=== PATIENT | female | born 1975 | race Caucasian/White ===

== ENCOUNTER 2019-09-10 01:02 | Emergency (ER) | payer BC ==
[2019-09-10 01:10] VITALS: TEMP 97.9
[2019-09-10] MEDS ORDERED: HYDROmorphone 0.5 MG/0.5 ML SYRINGE IVP STA (01:19)
[2019-09-10] MEDS ORDERED: ONDANSETRON 4 MG/2 ML VIAL IVP STA (01:19)
[2019-09-10] MEDS ORDERED: SODIUM CHLORIDE 0.9% 1,000 ML IV STA (01:19)
[2019-09-10] MEDS ORDERED: MAG HYDROX/AL HYDROX/SIMETH 30 ML, HYOSCYAMINE ELIXIR 10 ML, LIDOCAINE VISCOUS 2% 10 ML PO STA ×3 (01:20)
[2019-09-10] MEDS ORDERED: FAMOTIDINE 20 MG/2 ML VIAL IV STA (01:20)
--- NOTE | 2019-09-10 01:32 | ED ---
Abdominal Pain HPI - General Chief Complaint: Abdominal Pain Stated Complaint: Abd pain Time Seen by Provider: 09/10/19 01:14 Source: patient Mode of arrival: ambulatory Limitations: no limitations - History of Present Illness Initial Comments: 44-year-old female patient with past medical history significant for peptic ulcer disease with perforation presents to the emergency department today for evaluation of mid abdominal pain. Patient states that she's had pain for the last couple of days worsening tonight. Patient states she has been nauseated b ut has not vomited. Patient states the pain feels similar to when she had an ulcer in the past. She denies any dark or tarry stools. Denies any gross blood per rectum. Denies any hematuria, dysuria, urinary frequency, urinary urgency. She has had Ivana-en-Y gastric bypass and cholecystectomy in the past. She denies fevers or chills. Denies constipation or diarrhea. Patient denies any recent rash, shortness breath, chest pain, numbness, tingling, dizziness, weakness, headache, visual changes, or any other complaints. - Related Data Home Medications Medication Instructions Recorded Confirmed Omeprazole(Dose Unknown) 1 tab PO DAILY PRN 10/12/14 10/14/14 Acetaminophen [Tylenol] 325 mg PO Q4H 09/10/19 09/10/19 DULoxetine HCL [Cymbalta] 30 mg PO DAILY 09/10/19 09/10/19 Gabapentin [Neurontin] 400 mg PO BID 09/10/19 09/10/19 Sucralfate [Carafate] 1 gm PO BID 09/10/19 09/10/19 Ziprasidone HCl [Geodon] 80 mg PO 09/10/19 hydrOXYzine HCL 15 mg PO DAILY PRN 09/10/19 09/10/19 traZODone HCL 300 mg PO BID 09/10/19 09/10/19 Previous Rx's Medication Instructions Recorded Famotidine [Pepcid] 20 mg PO HS #30 tablet 09/10/19 Allergies Allergy/AdvReac Type Severity Reaction Status Date / Time Sulfa (Sulfonamide Allergy "ellis" Verified 10/12/14 15:41 Antibiotics) sulfamethoxazole Allergy "ellis" Verified 10/12/14 15:41 [From Bactrim] trimethoprim [From Bactrim] Allergy "ellis" Verified 10/12/14 15:41 Review of Systems ROS Statement: Those systems with pertinent positive or pertinent negative responses have been documented in the HPI. ROS Other: All systems not noted in ROS Statement are negative. Past Medical History Past Medical History: Deep Vein Thrombosis (DVT), Skin Disorder Additional Past Medical History / Comment(s): low BP, migraines, heart murmer, ulcer, hx stool impactions, sores on legs, dvt rt leg, anemia History of Any Multi-Drug Resistant Organisms: None Reported Past Surgical History: Bariatric Surgery, Cholecystectomy Additional Past Surgical History / Comment(s): D&C x 2, gastric bypass 2007, surgery for mesanteric defect Past Anesthesia/Blood Transfusion Reactions: Motion Sickness, Postoperative Nausea & Vomiting (PONV) Past Psychological History: Anxiety, Depression Smoking Status: Never smoker Past Alcohol Use History: Occasional Past Drug Use History: None Reported - Past Family History Mother Family Medical History: Deep Vein Thrombosis (DVT), Pulmonary Embolus General Exam Limitations: no limitations General appearance: alert, in no apparent distress, other (This is a well- developed, well-nourished adult female patient in no acute distress. Vital s igns upon presentation are temperature 97.9F, pulse 88, respirations 20, blood pressure 140/95, pulse ox 95% on room air.) Eye exam: Present: normal appearance, PERRL, EOMI. Absent: scleral icterus, conjunctival injection, periorbital swelling ENT exam: Present: normal exam, normal oropharynx, mucous membranes moist Respiratory exam: Present: normal lung sounds bilaterally. Absent: respiratory distress, wheezes, rales, rhonchi, stridor Cardiovascular Exam: Present: regular rate, normal rhythm, normal heart sounds. Absent: systolic murmur, diastolic murmur, rubs, gallop, clicks GI/Abdominal exam: Present: soft, tenderness (midepigastric tenderness), normal bowel sounds. Absent: distended, guarding, rebound, rigid Back exam: Present: normal inspection. Absent: CVA tenderness (R), CVA tenderness (L) Neurological exam: Present: alert, oriented X3, CN II-XII intact Psychiatric exam: Present: normal affect, normal mood Skin exam: Present: warm, dry, intact, normal color. Absent: rash Course Vital Signs 09/10/19 09/10/19 01:07 03:10 Temperature 97.9 F Pulse Rate 88 90 Respiratory 20 18 Rate Blood Pressure 140/95 117/80 O2 Sat by Pulse 95 95 Oximetry Medical Decision Making - Medical Decision Making 44-year-old female patient presents the emergency department today for evaluation of mid upper abdominal pain. Physical examination did reveal some mid abdominal tenderness. Labs reviewed and are unremarkable. X-ray was unremarkable. Patient continued to have pain after initiation of medications so we did perform CT of the abdomen and pelvis which was also unremarkable other than a large left ovarian cyst. Patient's pain is upper abdomen she is denying pelvic pain, states she was aware of this cyst. She does have history of peptic ulcer disease and states symptoms feel similar. We will start Pepcid, she does have Carafate at home which she will take as well. She is instructed follow up with her primary care physician and GI specialist for further evaluation and possible endoscopy. Return parameters discussed in detail. She verbalizes understanding and agrees with this plan. - Lab Data Result diagrams: 09/10/19 01:42 09/10/19 01:42 Lab Results 09/10/19 09/10/19 09/10/19 Range/Units 01:42 01:42 01:42 WBC 8.8 (3.8-10.6) k/uL RBC 4.63 (3.80-5.40) m/uL Hgb 14.3 (11.4-16.0) gm/dL Hct 44.0 (34.0-46.0) % MCV 95.0 (80.0-100.0) fL MCH 30.8 (25.0-35.0) pg MCHC 32.4 (31.0-37.0) g/dL RDW 12.5 (11.5-15.5) % Plt Count 294 (150-450) k/uL Neutrophils % 51 % Lymphocytes % 36 % Monocytes % 6 % Eosinophils % 3 % Basophils % 1 % Neutrophils # 4.5 (1.3-7.7) k/uL Lymphocytes # 3.2 (1.0-4.8) k/uL Monocytes # 0.5 (0-1.0) k/uL Eosinophils # 0.3 (0-0.7) k/uL Basophils # 0.1 (0-0.2) k/uL Sodium 137 (137-145) mmol/L Potassium 4.2 (3.5-5.1) mmol/L Chloride 108 H (98-107) mmol/L Carbon Dioxide 22 (22-30) mmol/L Anion Gap 7 mmol/L BUN 13 (7-17) mg/dL Creatinine 1.01 (0.52-1.04) mg/dL Est GFR (CKD-EPI)AfAm 78 (>60 ml/min/1.73 sqM) Est GFR (CKD-EPI)NonAf 68 (>60 ml/min/1.73 sqM) Glucose 94 (74-99) mg/dL Plasma Lactic Acid Jae 0.9 (0.7-2.0) mmol/L Calcium 8.9 (8.4-10.2) mg/dL Total Bilirubin 0.2 (0.2-1.3) mg/dL AST 24 (14-36) U/L ALT 25 (9-52) U/L Alkaline Phosphatase 77 (38-126) U/L Total Protein 6.7 (6.3-8.2) g/dL Albumin 4.0 (3.5-5.0) g/dL Amylase 62 (30-110) U/L Lipase 145 (23-300) U/L Urine Color Urine Appearance (Clear) Urine pH (5.0-8.0) Ur Specific [place] (1.001-1.035) Urine Protein (Negative) Urine Glucose (UA) (Negative) Urine Ketones (Negative) Urine Blood (Negative) Urine Nitrite (Negative) Urine Bilirubin (Negative) Urine Urobilinogen (<2.0) mg/dL Ur Leukocyte Esterase (Negative) Urine RBC (0-5) /hpf Urine WBC (0-5) /hpf Ur Squamous Epith Cells (0-4) /hpf Urine Bacteria (None) /hpf Urine Mucus (None) /hpf 09/10/19 Range/Units 02:33 WBC (3.8-10.6) k/uL RBC (3.80-5.40) m/uL Hgb (11.4-16.0) gm/dL Hct (34.0-46.0) % MCV (80.0-100.0) fL MCH (25.0-35.0) pg MCHC (31.0-37.0) g/dL RDW (11.5-15.5) % Plt Count (150-450) k/uL Neutrophils % % Lymphocytes % % Monocytes % % Eosinophils % % Basophils % % Neutrophils # (1.3-7.7) k/uL Lymphocytes # (1.0-4.8) k/uL Monocytes # (0-1.0) k/uL Eosinophils # (0-0.7) k/uL Basophils # (0-0.2) k/uL Sodium (137-145) mmol/L Potassium (3.5-5.1) mmol/L Chloride (98-107) mmol/L Carbon Dioxide (22-30) mmol/L Anion Gap mmol/L BUN (7-17) mg/dL Creatinine (0.52-1.04) mg/dL Est GFR (CKD-EPI)AfAm (>60 ml/min/1.73 sqM) Est GFR (CKD-EPI)NonAf (>60 ml/min/1.73 sqM) Glucose (74-99) mg/dL Plasma Lactic Acid Jae (0.7-2.0) mmol/L Calcium (8.4-10.2) mg/dL Total Bilirubin (0.2-1.3) mg/dL AST (14-36) U/L ALT (9-52) U/L Alkaline Phosphatase (38-126) U/L Total Protein (6.3-8.2) g/dL Albumin (3.5-5.0) g/dL Amylase (30-110) U/L Lipase (23-300) U/L Urine Color Red Urine Appearance Cloudy H (Clear) Urine pH 5.5 (5.0-8.0) Ur Specific [place] 1.023 (1.001-1.035) Urine Protein 1+ H (Negative) Urine Glucose (UA) Negative (Negative) Urine Ketones Negative (Negative) Urine Blood Large H (Negative) Urine Nitrite Negative (Negative) Urine Bilirubin Negative (Negative) Urine Urobilinogen <2.0 (<2.0) mg/dL Ur Leukocyte Esterase Moderate H (Negative) Urine RBC >182 H (0-5) /hpf Urine WBC 55 H (0-5) /hpf Ur Squamous Epith Cells 3 (0-4) /hpf Urine Bacteria Rare H (None) /hpf Urine Mucus Rare H (None) /hpf - Radiology Data Radiology results: report reviewed, image reviewed Acute abdomen series is obtained. Report was reviewed in its entirety. Impression by Dr. Curry shows normal chest. No active cardiopulmonary disease. Previous surgery. No sign of acute abdomen. CT abdomen and pelvis was obtained. Report was reviewed in its entirety. Impression by Dr. Curry shows normal appendix. No sign of acute abdomen and pelvis. Left large ovarian cyst. Disposition Clinical Impression: Abdominal pain, History of peptic ulcer disease Disposition: HOME SELF-CARE Condition: Good Instructions (If sedation given, give patient instructions): Diet for Stomach Ulcers and Gastritis (ED), Abdominal Pain (ED) Additional Instructions: Take medication as directed. Follow-up with your primary care physician for recheck in 1-2 days. 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 Return to the emergency department immediately for any new, worsening, or concerning symptoms. Prescriptions: Famotidine [Pepcid] 20 mg PO HS #30 tablet Is patient prescribed a controlled substance at d/c from ED?: No Referrals: Kyle Monroy DO [Primary Care Provider] - 1-2 days Ivelisse Alvarado MD [STAFF PHYSICIAN] - 1-2 days Time of Disposition: 03:26
--- NOTE | 2019-09-10 02:19 | XR ---
EXAMINATION TYPE: XR abdomen acute w cxr DATE OF EXAM: 09/10/2019 COMPARISON: NONE HISTORY: Abdominal pain TECHNIQUE: Supine, upright, and left side down lateral decubitus views of the abdomen are obtained. FINDINGS: Heart and mediastinum are normal. Lungs are clear. Diaphragm is normal. Bowel gas pattern is normal. There is no sign of intestinal obstruction or pneumoperitoneum. There are clips from cholecystectomy. There is a single clip over the left kidney. I see no calcifications over the kidneys. IMPRESSION: Normal chest. No active cardiopulmonary disease. Previous surgery. No sign of acute abdomen.
[2019-09-10 02:22] LABS: Basophils # (A) 0.1 k/uL (0-0.2); Basophils % (A) 1 %; Eosinophils # (A) 0.3 k/uL (0-0.7); Eosinophils % (A) 3 %; HGB 14.3 gm/dL (11.4-16.0); Lymphocytes # (A) 3.2 k/uL (1.0-4.8); Lymphocytes % (A) 36 %; MCH 30.8 pg (25.0-35.0); MCHC 32.4 g/dL (31.0-37.0); Mean Platelet Volume 6.3; Monocytes # (A) 0.5 k/uL (0-1.0); Monocytes % (A) 6 %; Neutrophils # (A) 4.5 k/uL (1.3-7.7); Neutrophils % (A) 51 %; Platelet Count 294 k/uL (150-450); RBC 4.63 m/uL (3.80-5.40); RDW 12.5 % (11.5-15.5); WBC 8.8 k/uL (3.8-10.6)
[2019-09-10 02:26] LABS: Calcium 8.9 mg/dL (8.4-10.2); Potassium 4.2 mmol/L (3.5-5.1); Total Bilirubin 0.2 mg/dL (0.2-1.3); Total Protein 6.7 g/dL (6.3-8.2)
[2019-09-10] MEDS ORDERED: HYDROmorphone 1 MG/ML 1 ML SYRINGE IVP STA (02:36)
[2019-09-10 02:58] LABS: Appearance,Urine Cloudy (Clear); Bacteria,Urine Rare /hpf; Bilirubin,Urine Negative (Negative); Blood,Urine Large (Negative); Color,Urine Red; Glucose,Urine (UA) Negative (Negative); Ketones,Urine Negative (Negative); Leukocyte Esterase,Urine Moderate (Negative); Mucus,Urine Rare /hpf; Nitrite,Urine Negative (Negative); PH, Urine 5.5 (5.0-8.0); Protein,Urine 1+ (Negative); RBC,Urine >182 /hpf (0-5); Specific Gravity,Urine 1.023 (1.001-1.035); Squamous Epithelial Cell,Urine 3 /hpf (0-4); Urobilinogen,Urine <2.0 mg/dL (<2.0); WBC,Urine 55 /hpf (0-5)
[2019-09-10 03:11] VITALS: BP 117/80; PULSE 90; RESP 18
--- NOTE | 2019-09-10 03:15 | CT ---
EXAMINATION TYPE: CT abdomen pelvis w con DATE OF EXAM: 09/10/2019 COMPARISON: None HISTORY: abd pain hx of ulcers CT DLP: 2656 mGycm Automated exposure control for dose reduction was used. TECHNIQUE: Helical acquisition of images was performed from the lung bases through the pelvis. CONTRAST: Performed without Oral Contrast and with IV Contrast, patient injected with 100 mL of Isovue 300. FINDINGS: Lung bases are clear. There is no pleural effusion. Heart size is normal. There are clips from bariat anjel surgery on the stomach. There are clips from cholecystectomy. Liver spleen pancreas appear normal . Bile ducts are not dilated. There is no adrenal mass. There is 1 cm cortical cyst lateral left kidney. Kidneys show satisfactory contrast opacification. There is no hydronephrosis. Ureters are not dilated. Bladder distends smoothl y. There is 4 cm cyst on the left ovary. Uterus is retroverted. There is no free fluid in the pelvis. Appendix appears normal. There is no mesenteric edema. There is no ascites or free air. There is no sign of a bowel obstruction. There is small umbilical hernia that contains fat. Lumbar spine is intact. Bony pelvis is intact. IMPRESSION: NORMAL APPENDIX. NO SIGN OF ACUTE ABDOMEN AND PELVIS. LEFT LARGE OVARIAN CYST.
[2019-09-10] MEDS ORDERED: diphenhydrAMINE 50 MG/ML 1 ML VIAL IVP STA (03:23)
[2019-09-10] MEDS ORDERED: ACET/COD 300 MG/30 MG STARTER PACK 6 TAB BTL PO STA (03:41)
== END 2019-09-10 03:49 | disposition home or self-care (01) ==
LOC: EC 01:02
DX: R10.10 Upper abdominal pain, unspecified (principal); R11.0 Nausea; R10.816 Epigastric abdominal tenderness; N83.202 Unspecified ovarian cyst, left side; F41.9 Anxiety disorder, unspecified; F32.9 Major depressive disorder, single episode, unspecified; Z79.899 Other long term (current) drug therapy; Z88.1 Allergy status to other antibiotic agents; Z88.2 Allergy status to sulfonamides; Z87.11 Personal history of peptic ulcer disease; Z90.49 Acquired absence of other specified parts of digestive tract; Z98.84 Bariatric surgery status; Z86.718 Personal history of other venous thrombosis and embolism
CPT/HCPCS: 36415; 80053; 82150; 83605; 83690; 85025; 81001; 74022; 74177; 99284; 96374; 96375 ×3; 96376; 96361 ×2; J1200; J2405; J1170 ×2; Q9967

== ENCOUNTER 2019-09-22 18:22 | Emergency (ER) | payer BC ==
[2019-09-22 18:33] VITALS: BP 134/89; PULSE 98; RESP 18; TEMP 98.4
[2019-09-22] MEDS ORDERED: KETOROLAC 30 MG/ML 1 ML VIAL IVP STA (19:13)
[2019-09-22] MEDS ORDERED: ACETAMINOPHEN TAB 325 MG TAB PO STA (19:28)
--- NOTE | 2019-09-22 19:31 | ED ---
General Adult HPI - General Chief complaint: Abdominal Pain Stated complaint: Abdominal cyst Time Seen by Provider: 09/22/19 18:59 Source: patient, RN notes reviewed, old records reviewed Mode of arrival: ambulatory Limitations: no limitations - History of Present Illness Initial comments: 44-year-old female patient past medical history of bariatric surgery, cystectomy presents to ED for chief complaint of abdominal pain. Patient has been ongoing for approximately one year. Patient reports is the general discomfort in her suprapubic and left lower quadrant region. For that she was seen for the same complaint on 09/10 with a CAT scan and diagnosed a large left ovarian cyst. Patient reports that this pain for same. Denies any other acute complaints. Systemic: Pt denies fatigue, fever/chills, rash. Pt denies weakness, night sweats, weight loss. Neuro: Pt denies headache, visual disturbances, syncope or pre-syncope. HEENT: Pt denies ocular discharge or irritation, otalgia, rhinorrhea, pharyngitis or notable lymphadenopathy. Cardiopulmonary: Pt denies chest pain, SOB, heart palpitations, dyspnea on exertion. Abdominal/GI: Pt denies n/v/d. : Pt denies dysuria, burning w/ urination, frequency/urgency. Denies new onset urinary or bowel incontinence. MSK: Pt denies myalgia, loss of strength or function in extremities. Neuro: Pt denies new onset weakness, paresthesias. - Related Data Home Medications Medication Instructions Recorded Confirmed Omeprazole(Dose Unknown) 1 tab PO DAILY PRN 10/12/14 10/14/14 Acetaminophen [Tylenol] 325 mg PO Q4H 09/10/19 09/10/19 DULoxetine HCL [Cymbalta] 30 mg PO DAILY 09/10/19 09/10/19 Gabapentin [Neurontin] 400 mg PO BID 09/10/19 09/10/19 Sucralfate [Carafate] 1 gm PO BID 09/10/19 09/10/19 Ziprasidone HCl [Geodon] 80 mg PO 09/10/19 hydrOXYzine HCL 15 mg PO DAILY PRN 09/10/19 09/10/19 traZODone HCL 300 mg PO BID 09/10/19 09/10/19 Previous Rx's Medication Instructions Recorded Famotidine [Pepcid] 20 mg PO HS #30 tablet 09/10/19 Allergies Allergy/AdvReac Type Severity Reaction Status Date / Time Sulfa (Sulfonamide Allergy "ellis" Verified 09/22/19 18:33 Antibiotics) sulfamethoxazole Allergy "ellis" Verified 09/22/19 18:33 [From Bactrim] trimethoprim [From Bactrim] Allergy "ellis" Verified 09/22/19 18:33 Review of Systems ROS Statement: Those systems with pertinent positive or pertinent negative responses have been documented in the HPI. ROS Other: All systems not noted in ROS Statement are negative. Past Medical History Past Medical History: Deep Vein Thrombosis (DVT), Skin Disorder Additional Past Medical History / Comment(s): low BP, migraines, heart murmer, ulcer, hx stool impactions, sores on legs, dvt rt leg, anemia History of Any Multi-Drug Resistant Organisms: None Reported Past Surgical History: Bariatric Surgery, Cholecystectomy Additional Past Surgical History / Comment(s): D&C x 2, gastric bypass 2007, surgery for mesanteric defect Past Anesthesia/Blood Transfusion Reactions: Motion Sickness, Postoperative Nausea & Vomiting (PONV) Past Psychological History: Anxiety, Depression Smoking Status: Never smoker Past Alcohol Use History: Occasional Past Drug Use History: None Reported - Past Family History Mother Family Medical History: Deep Vein Thrombosis (DVT), Pulmonary Embolus General Exam - General Exam Comments Initial Comments: Constitutional: NAD, AOX3, Pt has pleasant affect. HEENT: NC/AT, trachea midline, neck supple, no lymphadenopathy. Posterior pharynx non erythematous, without exudates. External ears appear normal, without discharge. Mucous membranes moist. Eyes PERRLA, EOM intact. There is no scleral icterus. No pallor noted. Cardiopulmonary: RRR, no murmurs, rubs or gallops, no JVD noted. Lungs CTAB in anterior and posterior harmon. No peripheral edema. Abdominal exam: Abdomen soft and non-distended. Abdomen mildly tender to palpation in LLQ, no guarding no rigidity. Bowel sounds active in LLQ. No hepatosplenomegaly. No ecchymosis Neuro: CN II-XII grossly intact. No nuchal rigidity. No raccon eyes, no bautista sign, no hemotympanum. No cervical spinal tenderness. MSK: No posterior calf tenderness bilaterally, homans sign negative bilaterally. Posterior tibialis and radial pulse +2 bilaterally. Sensation intact in upper and lower extremities. Full active ROM in upper and lower extremities, 5/5 streg nth. Limitations: no limitations Course Vital Signs 09/22/19 18:30 Temperature 98.4 F Pulse Rate 98 Respiratory 18 Rate Blood Pressure 134/89 O2 Sat by Pulse 99 Oximetry Medical Decision Making - Medical Decision Making 44-year-old female patient presents ED for 2 plan for approximately one year of abdominal pain. Patient had a CAT scan on 09/10 displayed a 4 cm left ovarian cyst. Patient wants this reevaluated. Patient vital signs are stable, afebrile. Physical exam displayed mild left lower quadrant tenderness. Upon investigation revealed mildly elevated creatinine 1.48. UA negative. Transvaginal ultrasound displayed multiple cervical cysts, bilateral simple ovarian cyst measuring 1.5 cm. Multiple septated complex areas seen on the left ovary. Patient was discharged with primary care and OB follow-up. We'll trachea condition worsens. Case discussed with Dr. Stevens. - Lab Data Result diagrams: 09/22/19 20:08 09/22/19 20:08 Lab Results 09/22/19 09/22/19 09/22/19 Range/Units 20:08 20:08 20:08 WBC 11.6 H (3.8-10.6) k/uL RBC 4.47 (3.80-5.40) m/uL Hgb 14.2 (11.4-16.0) gm/dL Hct 41.7 (34.0-46.0) % MCV 93.4 (80.0-100.0) fL MCH 31.8 (25.0-35.0) pg MCHC 34.0 (31.0-37.0) g/dL RDW 12.5 (11.5-15.5) % Plt Count 309 (150-450) k/uL Neutrophils % 60 % Lymphocytes % 29 % Monocytes % 6 % Eosinophils % 3 % Basophils % 1 % Neutrophils # 6.9 (1.3-7.7) k/uL Lymphocytes # 3.4 (1.0-4.8) k/uL Monocytes # 0.6 (0-1.0) k/uL Eosinophils # 0.3 (0-0.7) k/uL Basophils # 0.1 (0-0.2) k/uL Sodium 137 (137-145) mmol/L Potassium 4.8 (3.5-5.1) mmol/L Chloride 106 (98-107) mmol/L Carbon Dioxide 25 (22-30) mmol/L Anion Gap 6 mmol/L BUN 13 (7-17) mg/dL Creatinine 1.48 H (0.52-1.04) mg/dL Est GFR (CKD-EPI)AfAm 49 (>60 ml/min/1.73 sqM) Est GFR (CKD-EPI)NonAf 43 (>60 ml/min/1.73 sqM) Glucose 93 (74-99) mg/dL Calcium 9.0 (8.4-10.2) mg/dL Total Bilirubin 0.3 (0.2-1.3) mg/dL AST 28 (14-36) U/L ALT 34 (9-52) U/L Alkaline Phosphatase 79 (38-126) U/L Total Protein 6.9 (6.3-8.2) g/dL Albumin 4.1 (3.5-5.0) g/dL Urine Color Urine Appearance (Clear) Urine pH (5.0-8.0) Ur Specific [place] (1.001-1.035) Urine Protein (Negative) Urine Glucose (UA) (Negative) Urine Ketones (Negative) Urine Blood (Negative) Urine Nitrite (Negative) Urine Bilirubin (Negative) Urine Urobilinogen (<2.0) mg/dL Ur Leukocyte Esterase (Negative) Urine WBC (0-5) /hpf Ur Squamous Epith Cells (0-4) /hpf Amorphous Sediment (None) /hpf Urine Bacteria (None) /hpf Urine Mucus (None) /hpf Urine HCG, Qual Not Detected (Not Detectd) 09/22/19 Range/Units 20:08 WBC (3.8-10.6) k/uL RBC (3.80-5.40) m/uL Hgb (11.4-16.0) gm/dL Hct (34.0-46.0) % MCV (80.0-100.0) fL MCH (25.0-35.0) pg MCHC (31.0-37.0) g/dL RDW (11.5-15.5) % Plt Count (150-450) k/uL Neutrophils % % Lymphocytes % % Monocytes % % Eosinophils % % Basophils % % Neutrophils # (1.3-7.7) k/uL Lymphocytes # (1.0-4.8) k/uL Monocytes # (0-1.0) k/uL Eosinophils # (0-0.7) k/uL Basophils # (0-0.2) k/uL Sodium (137-145) mmol/L Potassium (3.5-5.1) mmol/L Chloride (98-107) mmol/L Carbon Dioxide (22-30) mmol/L Anion Gap mmol/L BUN (7-17) mg/dL Creatinine (0.52-1.04) mg/dL Est GFR (CKD-EPI)AfAm (>60 ml/min/1.73 sqM) Est GFR (CKD-EPI)NonAf (>60 ml/min/1.73 sqM) Glucose (74-99) mg/dL Calcium (8.4-10.2) mg/dL Total Bilirubin (0.2-1.3) mg/dL AST (14-36) U/L ALT (9-52) U/L Alkaline Phosphatase (38-126) U/L Total Protein (6.3-8.2) g/dL Albumin (3.5-5.0) g/dL Urine Color Yellow Urine Appearance Cloudy H (Clear) Urine pH 7.0 (5.0-8.0) Ur Specific [place] 1.027 (1.001-1.035) Urine Protein Trace H (Negative) Urine Glucose (UA) Negative (Negative) Urine Ketones Negative (Negative) Urine Blood Negative (Negative) Urine Nitrite Negative (Negative) Urine Bilirubin Negative (Negative) Urine Urobilinogen 2.0 (<2.0) mg/dL Ur Leukocyte Esterase Trace H (Negative) Urine WBC 4 (0-5) /hpf Ur Squamous Epith Cells 22 H (0-4) /hpf Amorphous Sediment Few H (None) /hpf Urine Bacteria Moderate H (None) /hpf Urine Mucus Occasional H (None) /hpf Urine HCG, Qual (Not Detectd) Disposition Clinical Impression: Ovarian cyst Disposition: HOME SELF-CARE Condition: Stable Instructions (If sedation given, give patient instructions): Ovarian Cyst (ED) Additional Instructions: Follow-up with primary care provider for repeat check of kidney function tomorrow. Drink lots of fluids. Follow up with [facility] as scheduled for symptoma tic ovarian cysts. Return to ER if condition worsens. Is patient prescribed a controlled substance at d/c from ED?: No Referrals: Kyle Monroy DO [Primary Care Provider] - 1-2 days
[2019-09-22 20:19] LABS: Basophils # (A) 0.1 k/uL (0-0.2); Basophils % (A) 1 %; Eosinophils # (A) 0.3 k/uL (0-0.7); Eosinophils % (A) 3 %; HCT 41.7 % (34.0-46.0); HGB 14.2 gm/dL (11.4-16.0); Lymphocytes # (A) 3.4 k/uL (1.0-4.8); Lymphocytes % (A) 29 %; MCH 31.8 pg (25.0-35.0); MCV 93.4 fL (80.0-100.0); Mean Platelet Volume 5.6; Monocytes # (A) 0.6 k/uL (0-1.0); Monocytes % (A) 6 %; Neutrophils # (A) 6.9 k/uL (1.3-7.7); Neutrophils % (A) 60 %; Platelet Count 309 k/uL (150-450); RBC 4.47 m/uL (3.80-5.40); RDW 12.5 % (11.5-15.5); WBC 11.6 k/uL (3.8-10.6)
[2019-09-22 20:29] LABS: Albumin 4.1 g/dL (3.5-5.0); Potassium 4.8 mmol/L (3.5-5.1); Total Bilirubin 0.3 mg/dL (0.2-1.3); Total Protein 6.9 g/dL (6.3-8.2)
[2019-09-22 20:37] LABS: Amorphous Sediment,Urine Few /hpf; Appearance,Urine Cloudy (Clear); Bacteria,Urine Moderate /hpf; Bilirubin,Urine Negative (Negative); Blood,Urine Negative (Negative); Color,Urine Yellow; Glucose,Urine (UA) Negative (Negative); Ketones,Urine Negative (Negative); Leukocyte Esterase,Urine Trace (Negative); Mucus,Urine Occasional /hpf; Nitrite,Urine Negative (Negative); Protein,Urine Trace (Negative); Specific Gravity,Urine 1.027 (1.001-1.035); Squamous Epithelial Cell,Urine 22 /hpf (0-4)
--- NOTE | 2019-09-22 20:47 | US ---
EXAMINATION TYPE: US transvaginal DATE OF EXAM: 09/22/2019 COMPARISON: CT CLINICAL HISTORY: pain, 4cm ovarian cyst. Pain x couple weeks. Hx ovarian cyst. D and C. . TECHNIQUE: Transvaginal (TV). Date of LMP: 09/09/2019 EXAM MEASUREMENTS: Uterus: 6.8 x 4.7 x 3.8 cm Endometrial Stripe: 0.96 cm Right Ovary: 3.1 x 2.0 x 1.8 cm Left Ovary: 3.2 x 1.9 x 2.0 cm 1. Uterus: Retroverted Appears slightly heterogeneous. Anechoic areas seen in cervix. Largest measur es: 2.1 x 2.1 x 1.3 cm. 2. Endometrium: Measures 0.96 cm. 3. Right Ovary: Anechoic areas seen. Largest measures: 1.1 x 1.0 x 0.9 cm. 4. Left Ovary: Multiple septated complex areas seen. Largest measures: 1.7 x 1.2 x 1.1 cm. Spectral, color and waveform doppler imaging shows arterial and venous flow within the ovaries. 5. Bilateral Adnexa: appear wnl 6. Posterior cul-de-sac: appears wnl IMPRESSION: There are multiple cervical cysts. Endometrium appears normal. Bilateral simple ovarian c ysts measure up to 1.5 cm. No evidence of ovarian torsion.
== END 2019-09-22 21:26 | disposition home or self-care (01) ==
LOC: EC 18:22
DX: N83.202 Unspecified ovarian cyst, left side (principal); N83.201 Unspecified ovarian cyst, right side; R79.89 Other specified abnormal findings of blood chemistry; N88.8 Other specified noninflammatory disorders of cervix uteri; F32.9 Major depressive disorder, single episode, unspecified; F41.9 Anxiety disorder, unspecified; Z88.2 Allergy status to sulfonamides; Z79.891 Long term (current) use of opiate analgesic; Z79.899 Other long term (current) drug therapy; Z98.84 Bariatric surgery status; Z90.79 Acquired absence of other genital organ(s)
CPT/HCPCS: 36415; 76830; 80053; 81001; 81025; 85025; 93975; 99284

== ENCOUNTER → 2020-12-11 | Outpatient (CLI) | payer MEDICARE, OTHER ==
--- NOTE | 2020-12-12 05:11 | MR ---
EXAMINATION TYPE: MR shoulder LT wo con DATE OF EXAM: 12/11/2020 COMPARISON: None HISTORY: Lt shoulder pain when arm is raised over the head x 3 months Multiplanar multiecho imaging of the left shoulder was performed without contrast. FINDINGS: There is extensive increased signal in the greater tuberosity of the humerus consistent with nondispl aced chip fracture. This measures approximately 2 x 1.5 cm. There is some mild thickening and increas ed signal in the supraspinatus tendon without retraction. There is full-thickness defect in the supra spinatus tendon on the anterior aspect. There is no retraction. There is moderate spurring at the AC joint with subacromial impingement on the supraspinatus tendon. This is best seen on (proton density coronal image 10. The glenoid damir appear intact. There is narrowing of the shoulder joint space. IMPRESSION: Large nondisplaced chip fracture of the greater tuberosity of the humerus. Moderate bone edema. Full-thickness tear of the supraspinatus tendon. Moderate spurring at the AC joint with subacromial i mpingement.
== END | disposition home or self-care (01) ==
LOC: RADMRIMAIN 15:29
PROVIDERS: ATTEND Orthopaedic Surgery Sports Medicine
DX: S42.255A Nondisplaced fracture of greater tuberosity of left humerus, initial encounter for closed fracture (principal); M75.122 Complete rotator cuff tear or rupture of left shoulder, not specified as traumatic; M25.712 Osteophyte, left shoulder; M25.812 Other specified joint disorders, left shoulder

== ENCOUNTER 2021-10-09 11:26 | Emergency (ER) | payer MEDICARE, OTHER ==
[2021-10-09 14:19] VITALS: BP 130/75; PULSE 105; RESP 20; TEMP 98.3
--- NOTE | 2021-10-09 19:28 | ED ---
General Adult HPI - General Chief complaint: Upper Respiratory Infection Stated complaint: Covid+, chest pain/SOB Time Seen by Provider: 10/09/21 19:03 Source: patient Mode of arrival: ambulatory Limitations: no limitations - History of Present Illness Initial comments: 46 year-old female patient with past medical history significant for CVA 4 presents to the emergency department today with multiple complaints. States she was diagnosed with COVID-19 3 weeks ago. States that she has continued cough, shortness of breath, and coughed up a few "quarter-sized blood clots" today. States she does have shortness of breath. She is also reporting left sided arm numbness and weakness, left leg numbness and weakness that started around 2:00 in the morning. She denies any difficulty with her speech. States she does have these episodes intermittently since having her strokes. She denies any recent falls. She has had headache for the past four days. She does take Plavix. Reports chronic blurred vision. - Related Data Home Medications Medication Instructions Recorded Confirmed DULoxetine HCL [Cymbalta] 30 mg PO BID 09/10/19 10/09/21 Sucralfate [Carafate] 1 gm PO BID 09/10/19 10/09/21 Acetaminophen Tab [Tylenol Tab] 1,000 mg PO Q6HR PRN 10/09/21 10/09/21 Albuterol Inhaler [Ventolin Hfa 2 puff INHALATION RT-Q4H PRN 10/09/21 10/09/21 Inhaler] Aspirin EC [Ecotrin Low Dose] 81 mg PO DAILY 10/09/21 10/09/21 Atorvastatin [Lipitor] 40 mg PO DAILY 10/09/21 10/09/21 Clopidogrel Bisulfate [Plavix] 75 mg PO DAILY 10/09/21 10/09/21 Fluticasone Nasal [place] [Flonase 1 spray EA NOSTRIL DAILY 10/09/21 10/09/21 Nasal [place]] Metoprolol Succinate (ER) [Toprol 25 mg PO DAILY 10/09/21 10/09/21 Xl] Multivitamins, Thera [Multivitamin 1 tab PO DAILY 10/09/21 10/09/21 (formulary)] QUEtiapine [SEROquel] 100 mg PO HS 10/09/21 10/09/21 Zinc 50 mg PO DAILY 10/09/21 10/09/21 busPIRone HCl [Buspar] 10 mg PO BID 10/09/21 10/09/21 hydrOXYzine HCL [Atarax] 25 mg PO DAILY PRN 10/09/21 10/09/21 traZODone HCL 150 mg PO HS 10/09/21 10/09/21 Allergies Allergy/AdvReac Type Severity Reaction Status Date / Time Sulfa (Sulfonamide Allergy "ellis" Verified 10/09/21 21:03 Antibiotics) sulfamethoxazole Allergy "ellis" Verified 10/09/21 21:03 [From Bactrim] trimethoprim [From Bactrim] Allergy "ellis" Verified 10/09/21 21:03 Review of Systems ROS Statement: Those systems with pertinent positive or pertinent negative responses have been documented in the HPI. ROS Other: All systems not noted in ROS Statement are negative. Past Medical History Past Medical History: CVA/TIA, Deep Vein Thrombosis (DVT), Skin Disorder Additional Past Medical History / Comment(s): low BP, migraines, heart murmer, ulcer, hx stool impactions, sores on legs, dvt rt leg, anemia History of Any Multi-Drug Resistant Organisms: None Reported Past Surgical History: Bariatric Surgery, Cholecystectomy Additional Past Surgical History / Comment(s): D&C x 2, gastric bypass 2007, surgery for mesanteric defect Past Anesthesia/Blood Transfusion Reactions: Motion Sickness, Postoperative Nausea & Vomiting (PONV) Past Psychological History: Anxiety, Depression Smoking Status: Never smoker Past Alcohol Use History: Occasional Past Drug Use History: Marijuana - Past Family History Mother Family Medical History: Deep Vein Thrombosis (DVT), Pulmonary Embolus General Exam Limitations: no limitations General appearance: alert, in no apparent distress, other (This is a well- developed, well-nourished adult female in no acute distress.) Eye exam: Present: normal appearance, PERRL, EOMI. Absent: scleral icterus, conjunctival injection, nystagmus, periorbital swelling ENT exam: Present: normal exam, normal oropharynx, mucous membranes moist Respiratory exam: Present: normal lung sounds bilaterally. Absent: respiratory distress, wheezes, rales, rhonchi, stridor Cardiovascular Exam: Present: normal rhythm, tachycardia, normal heart sounds. Absent: systolic murmur, diastolic murmur, rubs, gallop, clicks GI/Abdominal exam: Present: soft, normal bowel sounds. Absent: distended, tenderness, guarding, rebound, rigid Neurological exam: Present: alert, oriented X3, CN II-XII intact Expanded Speech: Present: fluid speech Cranial nerves: EOM's Intact: Normal, Nystagmus: Normal Upper motor neuron: Pronator Drift: Normal Motor strength exam: RUE: 5, LUE: 5, RLE: 4, LLE: 4 Psychiatric exam: Present: normal affect, normal mood Skin exam: Present: warm, dry, intact, normal color. Absent: rash Course Vital Signs 10/09/21 10/09/21 14:15 20:18 Temperature 98.3 F Pulse Rate 105 H Respiratory 20 20 Rate Blood Pressure 130/75 O2 Sat by Pulse 95 Oximetry EKG Findings - EKG Comments: EKG Findings:: EKG obtained at 1423 shows normal sinus rhythm with a ventricular rate of 95, NC interval 154, QRS duration 76, QT 362, QTc 454. No evidence of ST elevation or pressure. Medical Decision Making - Medical Decision Making 46 old female patient presented to the emergency department today for evaluation of continuous cough and shortness of breath since having COVID-19. She also reported hemoptysis. She has not had any coughing with hemoptysis while here. She is able to speak full sentences and is in no respiratory distress. She is reporting left-sided extremity numbness. Physical examination was unremarkable she had no focal deficits. Initially she had reported that this was new since 2:00 in the morning. When I was giving her follow up instructions to see her neurologist for the symptoms, she stated that she has been having the numbness since she had her CVA and he is aware, she apologized for "misleading" us. Chest x-ray was negative. Labs are unremarkable. D-dimer is negative. CT brai n shows right parietal infarct consistent with her previous history of CVA. She'll be discharged follow-up with her primary care physician, she does have an appointment on Friday. Return parameters were discussed in detail. She verbalizes understanding and agrees with this plan - Lab Data Result diagrams: 10/09/21 19:28 10/09/21 19:28 Lab Results 10/09/21 10/09/21 10/09/21 Range/Units 19:28 19:28 19:28 WBC 10.0 (3.8-10.6) k/uL RBC 5.14 (3.80-5.40) m/uL Hgb 14.8 (11.4-16.0) gm/dL Hct 45.4 (34.0-46.0) % MCV 88.2 (80.0-100.0) fL MCH 28.8 (25.0-35.0) pg MCHC 32.7 (31.0-37.0) g/dL RDW 15.1 (11.5-15.5) % Plt Count 463 H (150-450) k/uL MPV 6.8 Neutrophils % 61 % Lymphocytes % 28 % Monocytes % 6 % Eosinophils % 2 % Basophils % 0 % Neutrophils # 6.1 (1.3-7.7) k/uL Lymphocytes # 2.8 (1.0-4.8) k/uL Monocytes # 0.6 (0-1.0) k/uL Eosinophils # 0.2 (0-0.7) k/uL Basophils # 0.0 (0-0.2) k/uL PT 9.9 (9.0-12.0) sec INR 0.9 (<1.2) APTT 19.0 L (22.0-30.0) sec D-Dimer 0.39 (<0.60) mg/L FEU Sodium 134 L (137-145) mmol/L Potassium 4.7 (3.5-5.1) mmol/L Chloride 103 (98-107) mmol/L Carbon Dioxide 21 L (22-30) mmol/L Anion Gap 10 mmol/L BUN 12 (7-17) mg/dL Creatinine 0.94 (0.52-1.04) mg/dL Est GFR (CKD-EPI)AfAm 84 (>60 ml/min/1.73 sqM) Est GFR (CKD-EPI)NonAf 73 (>60 ml/min/1.73 sqM) Glucose 104 H (74-99) mg/dL Calcium 9.3 (8.4-10.2) mg/dL Total Bilirubin 0.4 (0.2-1.3) mg/dL AST 44 H (14-36) U/L ALT 28 (4-34) U/L Alkaline Phosphatase 144 H (38-126) U/L Lactate Dehydrogenase 656 H (313-618) U/L Troponin I (0.000-0.034) ng/mL C-Reactive Protein 0.7 (<1.0) mg/dL Total Protein 7.5 (6.3-8.2) g/dL Albumin 4.2 (3.5-5.0) g/dL 10/09/21 Range/Units 19:28 WBC (3.8-10.6) k/uL RBC (3.80-5.40) m/uL Hgb (11.4-16.0) gm/dL Hct (34.0-46.0) % MCV (80.0-100.0) fL MCH (25.0-35.0) pg MCHC (31.0-37.0) g/dL RDW (11.5-15.5) % Plt Count (150-450) k/uL MPV Neutrophils % % Lymphocytes % % Monocytes % % Eosinophils % % Basophils % % Neutrophils # (1.3-7.7) k/uL Lymphocytes # (1.0-4.8) k/uL Monocytes # (0-1.0) k/uL Eosinophils # (0-0.7) k/uL Basophils # (0-0.2) k/uL PT (9.0-12.0) sec INR (<1.2) APTT (22.0-30.0) sec D-Dimer (<0.60) mg/L FEU Sodium (137-145) mmol/L Potassium (3.5-5.1) mmol/L Chloride (98-107) mmol/L Carbon Dioxide (22-30) mmol/L Anion Gap mmol/L BUN (7-17) mg/dL Creatinine (0.52-1.04) mg/dL Est GFR (CKD-EPI)AfAm (>60 ml/min/1.73 sqM) Est GFR (CKD-EPI)NonAf (>60 ml/min/1.73 sqM) Glucose (74-99) mg/dL Calcium (8.4-10.2) mg/dL Total Bilirubin (0.2-1.3) mg/dL AST (14-36) U/L ALT (4-34) U/L Alkaline Phosphatase (38-126) U/L Lactate Dehydrogenase (313-618) U/L Troponin I <0.012 (0.000-0.034) ng/mL C-Reactive Protein (<1.0) mg/dL Total Protein (6.3-8.2) g/dL Albumin (3.5-5.0) g/dL - Radiology Data Radiology results: report reviewed, image reviewed Two-view x-ray of the chest is obtained. Report is reviewed in its entirety. Impression by Dr. Zheng shows no acute cardiopulmonary process. CT brain is performed without contrast. Report is reviewed in its entirety. Impression by Dr. Zheng shows age-indeterminate infarct of the right parietal lobe. Disposition Clinical Impression: Cough, Paresthesia Disposition: HOME SELF-CARE Condition: Good Instructions (If sedation given, give patient instructions): Coronavirus Disease 2019 (COVID-19), Paresthesia (ED), Acute Cough (ED) Additional Instructions: Follow up with your primary care physician for recheck tomorrow. Return for any new, worsening, or concerning symptoms. Is patient prescribed a controlled substance at d/c from ED?: No Referrals: Kyle Monroy DO [Primary Care Provider] - 1-2 days Time of Disposition: 21:47
[2021-10-09 19:46] LABS: Basophils % (A) 0 %; Eosinophils # (A) 0.2 k/uL (0-0.7); Eosinophils % (A) 2 %; HCT 45.4 % (34.0-46.0); HGB 14.8 gm/dL (11.4-16.0); Lymphocytes # (A) 2.8 k/uL (1.0-4.8); Lymphocytes % (A) 28 %; MCH 28.8 pg (25.0-35.0); MCHC 32.7 g/dL (31.0-37.0); MCV 88.2 fL (80.0-100.0); Mean Platelet Volume 6.8; Monocytes # (A) 0.6 k/uL (0-1.0); Monocytes % (A) 6 %; Neutrophils # (A) 6.1 k/uL (1.3-7.7); Neutrophils % (A) 61 %; Platelet Count 463 k/uL (150-450); RBC 5.14 m/uL (3.80-5.40); RDW 15.1 % (11.5-15.5)
[2021-10-09 19:57] LABS: Albumin 4.2 g/dL (3.5-5.0); C Reactive Protein 0.7 mg/dL (<1.0); Calcium 9.3 mg/dL (8.4-10.2); Potassium 4.7 mmol/L (3.5-5.1); Total Bilirubin 0.4 mg/dL (0.2-1.3); Total Protein 7.5 g/dL (6.3-8.2)
[2021-10-09 20:10] LABS: INR 0.9 (<1.2)
[2021-10-09 20:11] LABS: Prothrombin Time 9.9 sec (9.0-12.0)
--- NOTE | 2021-10-09 21:12 | CT ---
EXAMINATION TYPE: CT brain wo con DATE OF EXAM: 10/09/2021 COMPARISON: None HISTORY: Neuro deficit. History of stroke. CT DLP: 1099.4 mGycm. Automated Exposure Control for Dose Reduction was Utilized. TECHNIQUE: CT scan of the head is performed without contrast. FINDINGS: There is a wedge-shaped hypodensity of the right parietal lobe. There is no acute intracr anial hemorrhage, mass effect, or midline shift identified. The ventricles and sulci are within norm al limits in size. The globes are intact and the visualized sinuses are clear. IMPRESSION: Age-indeterminate infarct of the right parietal lobe.
--- NOTE | 2021-10-09 21:15 | XR ---
EXAMINATION TYPE: XR chest 2V DATE OF EXAM: 10/09/2021 COMPARISON: NONE HISTORY: Altered mental status TECHNIQUE: Frontal and lateral views of the chest are obtained. FINDINGS: ASD closure device. Cardiomediastinal silhouette and pulmonary vasculature are within shamir l limits. There is eventration of the right hemidiaphragm. There is no consolidation, effusion or pne umothorax. IMPRESSION: No acute cardiopulmonary process.
[2021-10-09] MEDS ORDERED: ACET/COD 300 MG/30 MG STARTER PACK 6 TAB BTL PO STA (21:46)
== END 2021-10-09 22:04 | disposition home or self-care (01) ==
LOC: EC 11:26
DX: R05.9 Cough, unspecified (principal); R20.2 Paresthesia of skin; F41.9 Anxiety disorder, unspecified; F32.A Depression, unspecified; Z72.89 Other problems related to lifestyle; F12.90 Cannabis use, unspecified, uncomplicated; Z86.73 Personal history of transient ischemic attack (TIA), and cerebral infarction without residual deficits; Z86.718 Personal history of other venous thrombosis and embolism
CPT/HCPCS: 36415; 70450; 71046; 80053; 83615; 84484; 85025; 85379; 85610; 85730; 86140; 93005; 99285

== ENCOUNTER 2022-01-16 14:26 | Inpatient (IN) | payer MEDICARE, OTHER ==
[2022-01-16 14:31] VITALS: TEMP 98.2
[2022-01-16 14:54] VITALS: RESP 18
[2022-01-16] MEDS ORDERED: SODIUM CHLORIDE 0.9% 500 ML 500 ML IV STA (15:02)
--- NOTE | 2022-01-16 15:15 | ED ---
General Adult HPI - General Chief complaint: Neuro Symptoms/Deficit Stated complaint: Poss Stroke Time Seen by Provider: 01/16/22 14:30 Source: patient, RN notes reviewed, old records reviewed Mode of arrival: wheelchair - History of Present Illness Initial comments: This is a 46-year-old female presents emergency Department stating that it 2:00 morning she was fine she fell asleep and woke up at 3 AM and she had stuttering speech numbness or weakness of the left arm and leg. Patient states she's had 4 strokes before and she said facial droop as residual deficit from a previous stroke. Patient denies headache patient denies any chest pain palpitations difficulty breathing shortness of breath. Patient denies any abdominal pain patient nausea vomiting diarrhea. Patient denies any recent fever chills or cough. Patient states she had COVID last year. - Related Data Home Medications Medication Instructions Recorded Confirmed DULoxetine HCL [Cymbalta] 30 mg PO BID@0700,2200 09/10/19 01/16/22 Sucralfate [Carafate] 1 gm PO HS@219909/10/19 01/16/22 Acetaminophen Tab [Tylenol Tab] 1,000 mg PO Q6HR PRN 10/09/21 01/16/22 Albuterol Inhaler [Ventolin Hfa 2 puff INHALATION RT-Q4H PRN 10/09/21 01/16/22 Inhaler] Aspirin EC [Ecotrin Low Dose] 81 mg PO DAILY@0700 10/09/21 01/16/22 Atorvastatin [Lipitor] 40 mg PO DAILY@0700 10/09/21 01/16/22 Clopidogrel Bisulfate [Plavix] 75 mg PO DAILY@0700 10/09/21 01/16/22 Metoprolol Succinate (ER) [Toprol 25 mg PO DAILY@0700 10/09/21 01/16/22 Xl] Multivitamins, Thera [Multivitamin 1 tab PO HS@0 10/09/21 01/16/22 (formulary)] QUEtiapine [SEROquel] 100 mg PO HS@2200 10/09/21 01/16/22 busPIRone HCl [Buspar] 10 mg PO TID@0700,1600,2200 10/09/21 01/16/22 hydrOXYzine HCL [Atarax] 25 mg PO HS@2200 10/09/21 01/16/22 traZODone HCL 75 mg PO BID@0700,1600 10/09/21 01/16/22 L.acidoph,Paracasei, B.lactis 1 cap PO HS@2200 01/16/22 01/16/22 [Probiotic] Meclizine [Antivert] 12.5 mg PO BID PRN 01/16/22 01/16/22 Turmeric Root Extract [Turmeric] 500 mg PO HS@2200 01/16/22 01/16/22 Allergies Allergy/AdvReac Type Severity Reaction Status Date / Time gabapentin Allergy Unknown Verified 01/16/22 14:30 Sulfa (Sulfonamide Allergy "ellis" Verified 01/16/22 14:30 Antibiotics) sulfamethoxazole Allergy "ellis" Verified 01/16/22 14:30 [From Bactrim] trimethoprim [From Bactrim] Allergy "ellis" Verified 01/16/22 14:30 Review of Systems ROS Statement: Those systems with pertinent positive or pertinent negative responses have been documented in the HPI. ROS Other: All systems not noted in ROS Statement are negative. Past Medical History Past Medical History: CVA/TIA, Deep Vein Thrombosis (DVT), Skin Disorder Additional Past Medical History / Comment(s): low BP, migraines, heart murmer, ulcer, hx stool impactions, sores on legs, dvt rt leg, anemia History of Any Multi-Drug Resistant Organisms: None Reported Past Surgical History: Bariatric Surgery, Cholecystectomy Additional Past Surgical History / Comment(s): D&C x 2, gastric bypass 2007, surgery for mesanteric defect Past Anesthesia/Blood Transfusion Reactions: Motion Sickness, Postoperative Nausea & Vomiting (PONV) Past Psychological History: Anxiety, Depression Smoking Status: Never smoker Past Alcohol Use History: Occasional Past Drug Use History: Marijuana - Past Family History Mother Family Medical History: Deep Vein Thrombosis (DVT), Pulmonary Embolus General Exam - General Exam Comments Initial Comments: GENERAL: Patient is well-developed and well-nourished. Patient is nontoxic and well- hydrated and is in mild distress. ENT: Neck is soft and supple. No significant lymphadenopathy is noted. Oropharynx is clear. Moist mucous membranes. Neck has full range of motion without eliciting any pain. EYES: The sclera were anicteric and conjunctiva were pink and moist. Extraocular movements were intact and pupils were equal round and reactive to light. Eyelids were unremarkable. PULMONARY: Unlabored respirations. Good breath sounds bilaterally. No audible rales rhonchi or wheezing was noted. CARDIOVASCULAR: There is a regular rate and rhythm without any murmurs gallops or rubs. ABDOMEN: Soft and nontender with normal bowel sounds. SKIN: Skin is clear with no lesions or rashes and otherwise unremarkable. NEUROLOGIC: Patient is alert and oriented x3. Patient has stuttering speech though it appears to come and go and she is able to speak clearly at times when she wants to tell us something and other times when you ask her questions she stutters. Patient's facial droop a little slight on the left. She states this is residual from her previous stroke. Patient has decreased sensation in her left arm and left leg and has weakness in her left leg with dorsiflexion and plantar flexion. Again that weakness appears to come and go with distraction MUSCULOSKELETAL: Normal extremities with adequate strength and full range of motion. No lower extremity swelling or edema. No calf tenderness. LYMPHATICS: No significant lymphadenopathy is noted PSYCHIATRIC: Normal psychiatric evaluation. Course Vital Signs 01/16/22 01/16/22 01/16/22 14:27 14:47 15:00 Temperature 98.2 F Pulse Rate 96 94 88 Respiratory 16 18 18 Rate Blood Pressure 146/94 126/88 123/86 O2 Sat by Pulse 97 97 96 Oximetry 01/16/22 01/16/22 01/16/22 15:15 15:30 15:45 Temperature Pulse Rate 80 95 88 Respiratory 18 18 18 Rate Blood Pressure 123/93 140/90 138/78 O2 Sat by Pulse 96 96 97 Oximetry Medical Decision Making - Medical Decision Making EKG shows sinus rhythm at 84 bpm RI interval is 183 QRSs 84 QT interval 349 QTC is 390. Patient's EKG shows no ST segment elevation or depression. CT of the brain shows no acute abnormalities. CT angiogram of the head and neck show no acute abnormalities. Patient remains having symptoms on the left side and some stuttering speech. I spoke with [facility] hospitalist significant that I admitted the patient wrote admitting orders. I consulted neurology - Lab Data Result diagrams: 01/16/22 15:05 01/16/22 15:05 Lab Results 01/16/22 01/16/22 01/16/22 Range/Units 15:05 15:05 15:05 WBC 8.3 (3.8-10.6) k/uL RBC 4.18 (3.80-5.40) m/uL Hgb 12.2 (11.4-16.0) gm/dL Hct 37.6 (34.0-46.0) % MCV 90.0 (80.0-100.0) fL MCH 29.1 (25.0-35.0) pg MCHC 32.4 (31.0-37.0) g/dL RDW 14.6 (11.5-15.5) % Plt Count 366 (150-450) k/uL MPV 6.7 Neutrophils % 50 % Lymphocytes % 36 % Monocytes % 5 % Eosinophils % 6 % Basophils % 1 % Neutrophils # 4.1 (1.3-7.7) k/uL Lymphocytes # 3.0 (1.0-4.8) k/uL Monocytes # 0.5 (0-1.0) k/uL Eosinophils # 0.5 (0-0.7) k/uL Basophils # 0.1 (0-0.2) k/uL PT 9.8 (9.0-12.0) sec INR 0.9 (<1.2) APTT 21.3 L (22.0-30.0) sec Sodium 136 L (137-145) mmol/L Potassium 4.1 (3.5-5.1) mmol/L Chloride 104 (98-107) mmol/L Carbon Dioxide 22 (22-30) mmol/L Anion Gap 10 mmol/L BUN 13 (7-17) mg/dL Creatinine 0.98 (0.52-1.04) mg/dL Est GFR (CKD-EPI)AfAm 80 (>60 ml/min/1.73 sqM) Est GFR (CKD-EPI)NonAf 69 (>60 ml/min/1.73 sqM) Glucose 94 (74-99) mg/dL Calcium 8.9 (8.4-10.2) mg/dL Total Bilirubin 0.3 (0.2-1.3) mg/dL AST 25 (14-36) U/L ALT 18 (4-34) U/L Alkaline Phosphatase 105 (38-126) U/L Troponin I (0.000-0.034) ng/mL Total Protein 6.8 (6.3-8.2) g/dL Albumin 4.0 (3.5-5.0) g/dL 01/16/22 Range/Units 15:05 WBC (3.8-10.6) k/uL RBC (3.80-5.40) m/uL Hgb (11.4-16.0) gm/dL Hct (34.0-46.0) % MCV (80.0-100.0) fL MCH (25.0-35.0) pg MCHC (31.0-37.0) g/dL RDW (11.5-15.5) % Plt Count (150-450) k/uL MPV Neutrophils % % Lymphocytes % % Monocytes % % Eosinophils % % Basophils % % Neutrophils # (1.3-7.7) k/uL Lymphocytes # (1.0-4.8) k/uL Monocytes # (0-1.0) k/uL Eosinophils # (0-0.7) k/uL Basophils # (0-0.2) k/uL PT (9.0-12.0) sec INR (<1.2) APTT (22.0-30.0) sec Sodium (137-145) mmol/L Potassium (3.5-5.1) mmol/L Chloride (98-107) mmol/L Carbon Dioxide (22-30) mmol/L Anion Gap mmol/L BUN (7-17) mg/dL Creatinine (0.52-1.04) mg/dL Est GFR (CKD-EPI)AfAm (>60 ml/min/1.73 sqM) Est GFR (CKD-EPI)NonAf (>60 ml/min/1.73 sqM) Glucose (74-99) mg/dL Calcium (8.4-10.2) mg/dL Total Bilirubin (0.2-1.3) mg/dL AST (14-36) U/L ALT (4-34) U/L Alkaline Phosphatase (38-126) U/L Troponin I <0.012 (0.000-0.034) ng/mL Total Protein (6.3-8.2) g/dL Albumin (3.5-5.0) g/dL Disposition Clinical Impression: Cerebrovascular accident (CVA) Disposition: ADMITTED IP TO THIS HOSP Referrals: Kyle Monroy DO [Primary Care Provider] - 1-2 days Time of Disposition: 17:44
[2022-01-16 15:24] LABS: Basophils # (A) 0.1 k/uL (0-0.2); Basophils % (A) 1 %; Eosinophils # (A) 0.5 k/uL (0-0.7); Eosinophils % (A) 6 %; HCT 37.6 % (34.0-46.0); HGB 12.2 gm/dL (11.4-16.0); Lymphocytes % (A) 36 %; MCH 29.1 pg (25.0-35.0); MCHC 32.4 g/dL (31.0-37.0); Mean Platelet Volume 6.7; Monocytes # (A) 0.5 k/uL (0-1.0); Monocytes % (A) 5 %; Neutrophils # (A) 4.1 k/uL (1.3-7.7); Neutrophils % (A) 50 %; Platelet Count 366 k/uL (150-450); RBC 4.18 m/uL (3.80-5.40); RDW 14.6 % (11.5-15.5); WBC 8.3 k/uL (3.8-10.6)
--- NOTE | 2022-01-16 15:27 | CT ---
EXAMINATION TYPE: CT brain wo con DATE OF EXAM: 01/16/2022 COMPARISON: CT dated 10/09/2021 HISTORY: Neuro deficit, acute CT DLP: 1091.6 mGycm Automated exposure control for dose reduction was used. TECHNIQUE: CT scan of the brain is performed without IV contrast administration. FINDINGS: Redemonstration of the previously seen right lateral parietal cortical and subcortical chronic infarc t. No acute intracranial hemorrhage or gross acute cortical infarct. No midline shift or herniation. Unremarkable basal cisterns, sella and CP angles. No gross space-occu pying lesion, vasogenic edema or mass effect. Unremarkable orbits. Clear visualized paranasal sinuses and mastoid air cells. Unremarkable calvarial bones. IMPRESSION: Grossly stable right lateral parietal chronic infarct. No acute intracranial hemorrhage or gross acut e cortical infarct however a small acute or hyperacute infarct cannot be excluded.
[2022-01-16 15:36] LABS: Calcium 8.9 mg/dL (8.4-10.2); Potassium 4.1 mmol/L (3.5-5.1); Total Bilirubin 0.3 mg/dL (0.2-1.3); Total Protein 6.8 g/dL (6.3-8.2)
[2022-01-16 15:52] LABS: INR 0.9 (<1.2); Prothrombin Time 9.8 sec (9.0-12.0)
[2022-01-16 16:04] LABS: Partial Thromboplastin Time 21.3 sec (22.0-30.0)
--- NOTE | 2022-01-16 16:16 | CT ---
EXAMINATION TYPE: CT angio head neck DATE OF EXAM: 01/16/2022 HISTORY: cva COMPARISON: Nonenhanced CT brain performed earlier same day CT DLP: 749.2 mGycm. Automated Exposure Control for Dose Reduction was Utilized. TECHNIQUE: CTA scan of the neck is performed with IV Contrast, patient injected with 65cc mL of Isov ue 370, axial images are obtained, coronal and sagittal reformatted images are reviewed. 3D reconstru cted images are created on an independent workstation and reviewed. FINDINGS: Carotid/Vascular Structures: Artifacts involving the proximal portion of the right vertebral artery. Suspected type left DIRECTOR SELECTION AND ADMINISTRATION. Otherwise normal caliber and enhancement of the neck arteries and intr acranial arteries without significant stenosis, occlusion, dissection, aneurysm or AV malformation. P atent major intracranial venous sinuses. Other: No intracranial abnormal enhancement. Mild bilateral upper lung lobe fibrotic changes/scarring . Degenerative changes at C3-4 and C4-5 levels. IMPRESSION: No significant stenosis, occlusion or other acute abnormality seen in the major neck or intracranial arteries. Incidental findings as described above. NASCET criteria was used in interpretation of this exam?
--- NOTE | 2022-01-16 17:57 | XR ---
EXAMINATION TYPE: XR chest 2V DATE OF EXAM: 01/16/2022 COMPARISON: 10/09/2021 HISTORY: Follow-up stroke TECHNIQUE: Frontal and lateral views of the chest are obtained. FINDINGS: There is no focal air space opacity, pleural effusion, or pneumothorax seen. The cardiac silhouette size is within normal limits. The osseous structures are intact. Cardiac occlusion devic e seen. IMPRESSION: No acute cardiopulmonary process.
[2022-01-16] MEDS ORDERED: ASPIRIN 325 MG TAB PO STA (18:05)
[2022-01-16] MEDS ORDERED: KETOROLAC 15 MG/ML 1 ML VIAL IVP STA (18:43)
[2022-01-16 19:24] VITALS: BP 111/95; PULSE 80
--- NOTE | 2022-01-16 22:48 | P.HPIM ---
History of Present Illness Please consider this note as combined H&P and discharge summary I just received a call from Dr. Bright to admit this patient for stroke workup given her previous history of stroke. Within a short time I was checking the chart and looks like patient left AMA from the emergency room before I have a chance to see her doctor Past Medical History Past Medical History: CVA/TIA, Deep Vein Thrombosis (DVT), Skin Disorder Additional Past Medical History / Comment(s): low BP, migraines, heart murmer, ulcer, hx stool impactions, sores on legs, dvt rt leg, anemia History of Any Multi-Drug Resistant Organisms: None Reported Past Surgical History: Bariatric Surgery, Cholecystectomy Additional Past Surgical History / Comment(s): D&C x 2, gastric bypass 2007, surgery for mesanteric defect Past Anesthesia/Blood Transfusion Reactions: Motion Sickness, Postoperative Nausea & Vomiting (PONV) Past Psychological History: Anxiety, Depression Smoking Status: Never smoker Past Alcohol Use History: Occasional Past Drug Use History: Marijuana - Past Family History Mother Family Medical History: Deep Vein Thrombosis (DVT), Pulmonary Embolus Medications and Allergies Home Medications Medication Instructions Recorded Confirmed Type DULoxetine HCL [Cymbalta] 30 mg PO BID@0700,219909/10/19 01/16/22 History Sucralfate [Carafate] 1 gm PO HS@219909/10/19 01/16/22 History Acetaminophen Tab [Tylenol Tab] 1,000 mg PO Q6HR PRN 10/09/21 01/16/22 History Albuterol Inhaler [Ventolin Hfa 2 puff INHALATION RT-Q4H PRN 10/09/21 01/16/22 History Inhaler] Aspirin EC [Ecotrin Low Dose] 81 mg PO DAILY@0700 10/09/21 01/16/22 History Atorvastatin [Lipitor] 40 mg PO DAILY@0700 10/09/21 01/16/22 History Clopidogrel Bisulfate [Plavix] 75 mg PO DAILY@0700 10/09/21 01/16/22 History Metoprolol Succinate (ER) [Toprol 25 mg PO DAILY@0700 10/09/21 01/16/22 History Xl] Multivitamins, Thera [Multivitamin 1 tab PO HS@219910/09/21 01/16/22 History (formulary)] QUEtiapine [SEROquel] 100 mg PO HS@2200 10/09/21 01/16/22 History busPIRone HCl [Buspar] 10 mg PO TID@0700,1600,2200 10/09/21 01/16/22 History hydrOXYzine HCL [Atarax] 25 mg PO HS@2200 10/09/21 01/16/22 History traZODone HCL 75 mg PO BID@0700,1600 10/09/21 01/16/22 History L.acidoph,Paracasei, B.lactis 1 cap PO HS@2200 01/16/22 01/16/22 History [Probiotic] Meclizine [Antivert] 12.5 mg PO BID PRN 01/16/22 01/16/22 History Turmeric Root Extract [Turmeric] 500 mg PO HS@2200 01/16/22 01/16/22 History Allergies Allergy/AdvReac Type Severity Reaction Status Date / Time gabapentin Allergy Unknown Verified 01/16/22 14:30 Sulfa (Sulfonamide Allergy "ellis" Verified 01/16/22 14:30 Antibiotics) sulfamethoxazole Allergy "ellis" Verified 01/16/22 14:30 [From Bactrim] trimethoprim [From Bactrim] Allergy "ellis" Verified 01/16/22 14:30 Physical Exam Vitals: Vital Signs Temp Pulse Resp BP Pulse Ox 01/16/22 18:55 80 18 111/95 98 01/16/22 15:45 88 18 138/78 97 01/16/22 15:30 95 18 140/90 96 01/16/22 15:15 80 18 123/93 96 01/16/22 15:00 88 18 123/86 96 01/16/22 14:47 94 18 126/88 97 01/16/22 14:27 98.2 F 96 16 146/94 97 Intake and Output 01/16/22 01/16/22 01/16/22 06:59 14:59 22:59 Other: Weight 117.48 kg Results CBC & Chem 7: 01/16/22 15:05 01/16/22 15:05 Labs: Abnormal Lab Results - Last 24 Hours (Table) 01/16/22 01/16/22 Range/Units 15:05 15:05 APTT 21.3 L (22.0-30.0) sec Sodium 136 L (137-145) mmol/L
[2022-01-17] MEDS ORDERED: ASPIRIN 325 MG TAB PO SCH (09:00)
== END 2022-01-16 19:26 | disposition left against medical advice (07) | DRG 66 ==
LOC: EC 14:26 → 3SCARD 18:05
PROVIDERS: ADMIT Hospitalist; ATTEND Hospitalist
DX: I63.9 Cerebral infarction, unspecified (principal); F32.A Depression, unspecified; F41.9 Anxiety disorder, unspecified; R47.89 Other speech disturbances; Z53.29 Procedure and treatment not carried out because of patient's decision for other reasons; G43.909 Migraine, unspecified, not intractable, without status migrainosus; D64.9 Anemia, unspecified; I69.392 Facial weakness following cerebral infarction; Z86.16 Personal history of COVID-19; Z79.02 Long term (current) use of antithrombotics/antiplatelets; Z79.82 Long term (current) use of aspirin; Z79.899 Other long term (current) drug therapy; Z98.84 Bariatric surgery status; Z90.49 Acquired absence of other specified parts of digestive tract; Z86.718 Personal history of other venous thrombosis and embolism; Z88.2 Allergy status to sulfonamides; Z88.8 Allergy status to other drugs, medicaments and biological substances
CPT/HCPCS: 36415; 70450; 70496; 70498; 71046; 80053; 84484; 85025; 85610; 85730; 93005; 96361; 96374; 99285

== ENCOUNTER 2022-02-26 06:33 | Day surgery (SDC) | payer MEDICARE, OTHER ==
[2022-02-21 16:22] VITALS: BMI 43.2
[~2022-02-26 06:33] MED LIST: LACTATED RINGERS 1,000 ML IV SCH; LIDOCAINE 1% (10MG/ML) FOR IV START INTRADERMA PRN
[2022-02-26 07:04] VITALS: TEMP 97.4
[2022-02-26] MEDS ORDERED: ONDANSETRON 4 MG/2 ML VIAL ONE (07:37)
[2022-02-26] MEDS ORDERED: LIDOCAINE 1% INJ 10MG/ML (20 ML MDV) ONE (07:37)
[2022-02-26] MEDS ORDERED: MIDAZOLAM 2 MG/2 ML VIAL ONE (07:37)
[2022-02-26] MEDS ORDERED: diphenhydrAMINE 50 MG/ML 1 ML VIAL ONE (07:37)
[2022-02-26] MEDS ORDERED: PROPOFOL 10 MG/ML 20 ML VIAL IV ONE (07:37)
--- NOTE | 2022-02-26 08:00 | P.PCN ---
Date of Procedure: 02/26/22 Procedure(s) Performed: Brief history: Patient is a pleasant 46 scheduled for an elective upper endoscopy as well as colonoscopy as a part of evaluation of intermittent dysphagia to solids, rectal bleeding for the last few months duration. Has history of gastric bypass surgery with Ivana-en-Y anastomosis esophagus. Procedure performed: Esophagogastroduodenoscopy with biopsy Colonoscopy Preoperative diagnosis: Dysphagia History of gastric Ivana-en-Y bypass surgery Rectal bleeding Anesthesia: MAC Procedure: After informed consent was obtained from the patient was brought into the endoscopy unit and IV sedation was administered by anesthesia under continuous monitoring. Initially upper endoscopy was done. The Olympus GF 160 video endoscope was inserted inserted into the mouth and esophagus intubated without any difficulty and was gradually advanced into the gastric pouch with Ivana-en-Y anastomosis was visualized and appeared normal. The scope was advanced into the efferent loop and centimeters visualized and appeared normal. The scope was withdrawn to the gastric pouch appeared normal. The GE junction was located at 37 cm to the incisors. It appeared regular with no erythema erosions or ulcerations. Rest of the esophagus appeared normal. Abscesses were done from the mid and distal esophagus Patient tolerated the procedure well. At this time the patient continued to remain sedation. Initial digital rectal examination was normal. Olympus CF 160 video colonoscope was then inserted into the rectum and gradually advanced to the cecum without any difficulty. Careful examination was performed as the scope was gradually being withdrawn. The prep was excellent. The cecum, ascending colon, transverse colon, descending colon, sigmoid colon and rectum appeared normal. Retroflexion was performed in the rectum and all internal hemorrhoids were noted. Patient tolerated the procedure well. Impression: 1. Upper endoscopy revealed normal gastric pouch and normal Ivana-en-Y anastomosis. No evidence of esophageal stricture 2. Colonoscopy was within normal limits with no evidence of colorectal neoplasia. Small internal hemorrhoids Recommendations: Findings of this examination were discussed with the patient as well as her family. She was advised to follow with the biopsy results. Recommended a high Fiber diet and fiber supplements on a regular basis. She can have a repeat screening colonoscopy in 10 years.
[2022-02-26 08:18] VITALS: RESP 16
[2022-02-26 08:26] VITALS: BP 105/72; PULSE 76
== END 2022-02-26 08:40 | disposition home or self-care (01) ==
LOC: ORWHC2ENDO 06:33
PROVIDERS: ATTEND Internal Medicine Gastroenterology
DX: K21.00 Gastro-esophageal reflux disease with esophagitis, without bleeding (principal); Z98.84 Bariatric surgery status; K64.8 Other hemorrhoids; Z88.2 Allergy status to sulfonamides; Z88.8 Allergy status to other drugs, medicaments and biological substances; E66.9 Obesity, unspecified; Z68.41 Body mass index [BMI] 40.0-44.9, adult; Z86.718 Personal history of other venous thrombosis and embolism; M79.7 Fibromyalgia; Z86.73 Personal history of transient ischemic attack (TIA), and cerebral infarction without residual deficits
CPT/HCPCS: 81025; 88305; 88312; 45378; 43239; J2250; J1200; J2405; J2001; J2704

== ENCOUNTER → 2022-09-05 | Outpatient (CLI) | payer MEDICARE, OTHER ==
[2022-09-05 20:03] LABS: ALT 21 U/L (8-44); AST 28 U/L (13-35); Chol/HDL Ratio 2.29 Ratio; LDL Cholesterol,Calculated 60.6 mg/dL (0.0-131.0)
== END | disposition home or self-care (01) ==
LOC: LABWHC1 13:45
PROVIDERS: ATTEND Internal Medicine Interventional Cardiology
DX: E78.2 Mixed hyperlipidemia (principal)
CPT/HCPCS: 36415; 80061; 84450; 84460

== ENCOUNTER 2022-09-16 21:00 | Inpatient (IN) | payer MEDICARE, OTHER ==
--- NOTE | 2022-09-16 22:14 | XR ---
EXAMINATION TYPE: XR chest 2V DATE OF EXAM: 09/16/2022 COMPARISON: 06/21/2022 HISTORY: Chest pain TECHNIQUE: FINDINGS: Heart is normal. Lungs are clear. Diaphragm is normal. Bony thorax is intact. The pulmonary vascularity is normal. There is cardiac surgery noted. IMPRESSION: Normal chest. No adverse change.
--- NOTE | 2022-09-16 22:34 | ED ---
Chest Pain HPI - General Chief Complaint: Chest Pain Stated Complaint: Leg pain,BID,Blood disorder Time Seen by Provider: 09/16/22 22:11 Source: patient, RN notes reviewed, old records reviewed Mode of arrival: wheelchair Limitations: no limitations - History of Present Illness Initial Comments: This is a 47-year-old female to the emergency room sheet for evaluation, crying during history of present illness. Patient's very anxious. Concern for blood clot in her lungs concern for having a stroke concern for blood clot in her leg. Patient has no travel history sick contacts no change in medications MD Complaint: chest pain, other (Anxiety left leg pain and uncontrolled movements) -: hour(s) Onset: during rest Pain Location: substernal Pain Radiation: RUE, LUE Severity: mild Severity scale (1-10): 3 Quality: heaviness, sharp Consistency: intermittent Improves With: nothing Worsens With: nothing Anginal Symptoms: sense of impending doom Other Symptoms: palpitations Treatments Prior to Arrival: none - Related Data Home Medications Medication Instructions Recorded Confirmed DULoxetine HCL [Cymbalta] 30 mg PO DAILY 09/10/19 06/21/22 Sucralfate [Carafate] 1 gm PO QID 09/10/19 06/21/22 Atorvastatin [Lipitor] 40 mg PO DAILY 10/09/21 06/21/22 Clopidogrel Bisulfate [Plavix] 75 mg PO DAILY 10/09/21 06/21/22 QUEtiapine [SEROquel] 100 mg PO HS 10/09/21 06/21/22 busPIRone HCl [Buspar] 10 mg PO TID 10/09/21 06/21/22 hydrOXYzine HCL [Atarax] 25 mg PO HS 10/09/21 06/21/22 traZODone HCL 150 mg PO HS 10/09/21 06/21/22 Metoprolol Tartrate [Lopressor] 25 mg PO DAILY 06/21/22 06/21/22 Omeprazole 20 mg PO DAILY 06/21/22 06/21/22 Valsartan 40 mg PO DAILY 06/21/22 06/21/22 Previous Rx's Medication Instructions Recorded Aspirin 81 mg PO DAILY #30 tab 06/22/22 oxyCODONE HCL/ACETAMINOPHEN 1 tab PO Q4HR PRN 3 Days #18 tab 06/22/22 [Percocet 10-325 mg] Allergies Allergy/AdvReac Type Severity Reaction Status Date / Time gabapentin Allergy Unknown Verified 06/21/22 19:29 Sulfa (Sulfonamide Allergy "ellis" Verified 06/21/22 19:29 Antibiotics) sulfamethoxazole Allergy "ellis" Verified 06/21/22 19:29 [From Bactrim] trimethoprim [From Bactrim] Allergy "ellis" Verified 06/21/22 19:29 NSAIDS (Non-Steroidal AdvReac Unknown Verified 06/21/22 20:03 Anti-Inflamma Review of Systems ROS Statement: Those systems with pertinent positive or pertinent negative responses have been documented in the HPI. ROS Other: All systems not noted in ROS Statement are negative. EKG Findings - EKG Comments: EKG Findings:: EKG is sinus 79 ND 155 QRS 81 QTC 396 Past Medical History Past Medical History: Blood Disorder, CVA/TIA, Deep Vein Thrombosis (DVT), Fibromyalgia, Memory Impairment, Skin Disorder Additional Past Medical History / Comment(s): CVA X4, last one 05/10/21, has hard time walking sometimes, speech and memory issues. Low BP, migraines, heart murmer, ulcer, hx stool impactions, sores on legs, hx DVT right leg, hx DVT right upper arm X4, anemia. Hx Covid 08/30, with occasional cough since, uses inhaler as needed. Blood disorder, unknown name. Tachycardia. History of Any Multi-Drug Resistant Organisms: None Reported Past Surgical History: Bariatric Surgery, Cholecystectomy Additional Past Surgical History / Comment(s): D&C X2, gastric bypass 2007, surgery for mesanteric defect, PFO closure. Past Anesthesia/Blood Transfusion Reactions: Motion Sickness, Postoperative Nausea & Vomiting (PONV) Past Psychological History: Anxiety, Depression Smoking Status: Never smoker Past Alcohol Use History: Occasional Past Drug Use History: Marijuana - Past Family History Mother Family Medical History: Cancer, Deep Vein Thrombosis (DVT), Pulmonary Embolus Father Family Medical History: Cancer Additional Family Medical History / Comment(s): Skin cancer. General Exam Limitations: no limitations General appearance: alert, in no apparent distress, anxious Head exam: Present: atraumatic, normocephalic, normal inspection Eye exam: Present: normal appearance, PERRL, EOMI. Absent: scleral icterus, conjunctival injection, periorbital swelling ENT exam: Present: normal exam, mucous membranes moist Neck exam: Present: normal inspection. Absent: tenderness, meningismus, lymphadenopathy Respiratory exam: Present: normal lung sounds bilaterally. Absent: respiratory distress, wheezes, rales, rhonchi, stridor Cardiovascular Exam: Present: regular rate, normal rhythm, normal heart sounds. Absent: systolic murmur, diastolic murmur, rubs, gallop, clicks GI/Abdominal exam: Present: soft, normal bowel sounds. Absent: distended, tenderness, guarding, rebound, rigid Extremities exam: Present: normal inspection, full ROM, normal capillary refill. Absent: tenderness, pedal edema, joint swelling, calf tenderness Back exam: Present: normal inspection Neurological exam: Present: alert, oriented X3, CN II-XII intact Psychiatric exam: Present: normal affect, normal mood Skin exam: Present: warm, dry, intact, normal color. Absent: rash Course Vital Signs 09/16/22 09/16/22 09/16/22 21:09 22:27 23:28 Temperature 97 F L Pulse Rate 90 80 75 Respiratory 16 18 18 Rate Blood Pressure 127/87 97/67 118/80 O2 Sat by Pulse 94 L 98 98 Oximetry 09/17/22 01:52 Temperature Pulse Rate 72 Respiratory 16 Rate Blood Pressure 121/87 O2 Sat by Pulse 99 Oximetry - Reevaluation(s) Reevaluation #1: 09/17/22 02:09 Medical record is reviewed Reevaluation #2: 09/17/22 02:09 Patient has recurrent shaking, slurred speech, altered mental status here in the ER 09/17/22 02:10 All symptoms have resolved on their own Reevaluation #3: 09/17/22 02:10 Patient informed results and questions answered - Consultations Consultation #1: Spoke with sound who agrees to admit this patient Chest Pain MDM - MDM 47 female DF for evaluation patient [place] for evaluation regards to symptoms of altered mental status and chest pain. Daughter movements TIA. Persistent chest pain concern for PE. Patient [place] for further evaluation management Disposition Clinical Impression: Atypical chest pain, Panic attack, Chest pain, TIA (transient ischemic attack) Disposition: ADMITTED IP TO THIS [facility] Condition: Good Is patient prescribed a controlled substance at d/c from ED?: No Referrals: None,Stated [Primary Care Provider] - 1-2 days Time of Disposition: 02:10
[2022-09-16 23:11] LABS: Basophils # (A) 0.1 k/uL (0-0.2); Basophils % (A) 1 %; Eosinophils # (A) 0.3 k/uL (0-0.7); Eosinophils % (A) 3 %; HCT 37.6 % (34.0-46.0); HGB 12.2 gm/dL (11.4-16.0); Hypochromasia Moderate; Lymphocytes # (A) 3.1 k/uL (1.0-4.8); Lymphocytes % (A) 32 %; MCH 27.1 pg (25.0-35.0); MCHC 32.4 g/dL (31.0-37.0); MCV 83.6 fL (80.0-100.0); Mean Platelet Volume 7.5; Monocytes # (A) 0.7 k/uL (0-1.0); Monocytes % (A) 7 %; Neutrophils # (A) 5.4 k/uL (1.3-7.7); Neutrophils % (A) 55 %; Platelet Count 390 k/uL (150-450); RDW 15.7 % (11.5-15.5); WBC 9.7 k/uL (3.8-10.6)
--- NOTE | 2022-09-16 23:21 | US ---
EXAMINATION TYPE: US venous doppler duplex LE LT DATE OF EXAM: 09/16/2022 11:11 PM COMPARISON: NONE CLINICAL HISTORY: dvt. Patient states she has been having pain in the back of her thigh x 1 week. Hx of DVTs, pt is on blood thinners SIDE PERFORMED: Left TECHNIQUE: The lower extremity deep venous system is examined utilizing real time linear array sonog kwabena with graded compression, doppler sonography and color-flow sonography. VESSELS IMAGED: Common Femoral Vein Deep Femoral Vein Greater Saphenous Vein * Femoral Vein Popliteal Vein Small Saphenous Vein * Proximal Calf Veins (* superficial vessels) Left Leg: Negative for DVT IMPRESSION: No evidence of deep vein thrombosis in the left leg.
[2022-09-16 23:46] LABS: INR 0.9 (<1.2); Partial Thromboplastin Time 20.5 sec (22.0-30.0); Prothrombin Time 9.8 sec (9.0-12.0)
[2022-09-16 23:56] LABS: Albumin 4.3 g/dL (3.5-5.0); Calcium 8.8 mg/dL (8.4-10.2); Magnesium 2.2 mg/dL (1.6-2.3); Potassium 4.9 mmol/L (3.5-5.1); Total Bilirubin 0.3 mg/dL (0.2-1.3); Total Protein 6.9 g/dL (6.3-8.2)
--- NOTE | 2022-09-17 01:25 | CT ---
EXAMINATION TYPE: CT brain wo con DATE OF EXAM: 09/17/2022 COMPARISON: 01/16/2022 HISTORY: hx of TIA Weakness CT DLP: 1090.2 mGycm Automated exposure control for dose reduction was used. Images of the brain obtained with no contrast. There is some cortical hypodensity in the right posterior temporal lobe measuring 4 x 3 cm and consis tent with some encephalomalacia and old infarct. This appears not significantly different than last e xam. There is no mass effect or midline shift. No sign of intracranial hemorrhage. The calvarium is i ntact. Skull base is intact. There is normal aeration of the mastoid sinuses. There is some cerebral cortical atrophy. IMPRESSION: Old right posterior temporal lobe cortical infarct. No acute intracranial abnormality. No change comp ared to old exams
[2022-09-17] MEDS ORDERED: ONDANSETRON 4 MG/2 ML VIAL IVP PRN (02:06)
[2022-09-17] MEDS ORDERED: NALOXONE 0.4 MG/ML 1 ML VIAL IV PRN (02:06)
--- NOTE | 2022-09-17 05:32 | P.HPIM ---
History of Present Illness H&P Date: 09/17/22 The patient is a 47-year-old female with a PMH of CVA with residual bilateral lower extremity weakness, history of DVT (not on anticoagulation), hypertension, and hyperlipidemia who presents to the emergency room with complaints of pain in her left posterior thigh. The patient is very concerned that this may be related to her previous history of DVTs. She also reports that earlier today she suddenly developed expressive aphasia, being unable to speak and also experiencing bilateral hand numbness, lasting for a few minutes of time and then resolved spontaneously.. CT brain in the emergency room revealed evidence of old CVAs. EKG revealed sinus rhythm at 79 bpm. Chest CTA could not be performed as patient did not have any access. . Review of systems: Pertinent positives and negatives as discussed in HPI, a complete review of systems was performed and all other systems are negative. Physical examination: General: non toxic, no distress, appears at stated age, morbidly obese Derm: no unusual rashes/lesions, warm Head: atraumatic, normocephalic, symmetric Eyes: EOMI, no lid lag, anicteric sclera, pupils equal round reactive to light ENT: Nose and ears atraumatic Neck: No cervical lymphadenopathy, trachea midline, supple Mouth: no lip lesion, mucus membranes moist Cardiovascular: S1S2 reg, no murmur, positive dorsalis pedis pulse bilateral, no edema Lungs: CTA bilateral, no rhonchi, no rales, no accessory muscle use Abdominal: soft, nontender to palpation, no guarding Ext: muscle strength 5 out of 5 in all 4 extremities grossly, no gross muscle atrophy, no contractures, no calf or thigh tenderness noted on exam Neuro: CN II-XI grossly intact, no gross focal neuro deficits Psych: Alert, oriented, appropriate affect Assessment/plan TIA -Neurology consult -Neurochecks -Patient reports that she was taken off of her anticoagulants from her A. fib Possible DVT and PE -VQ scan ordered DVT prophylaxis -Heparin subq The patient is admitted with an anticipated less than 2 midnight stay for evaluation of TIA CODE STATUS: Full Code Discussed with: Patient Anticipated discharge date: in am Anticipated discharge place: Home Past Medical History Past Medical History: Blood Disorder, CVA/TIA, Deep Vein Thrombosis (DVT), Fibromyalgia, Memory Impairment, Skin Disorder Additional Past Medical History / Comment(s): CVA X4, last one 05/10/21, has hard time walking sometimes, speech and memory issues. Low BP, migraines, heart murmer, ulcer, hx stool impactions, sores on legs, hx DVT right leg, hx DVT right upper arm X4, anemia. Hx Covid 08/30, with occasional cough since, uses i nhaler as needed. Blood disorder, unknown name. Tachycardia. History of Any Multi-Drug Resistant Organisms: None Reported Past Surgical History: Bariatric Surgery, Cholecystectomy Additional Past Surgical History / Comment(s): D&C X2, gastric bypass 2007, surgery for mesanteric defect, PFO closure. Past Anesthesia/Blood Transfusion Reactions: Motion Sickness, Postoperative Nausea & Vomiting (PONV) Past Psychological History: Anxiety, Depression Smoking Status: Never smoker Past Alcohol Use History: Occasional Past Drug Use History: Marijuana Additional Drug Use History / Comment(s): Marijuana use once a week. Aware no use 24 hrs prior to procedure. - Past Family History Mother Family Medical History: Cancer, Deep Vein Thrombosis (DVT), Pulmonary Embolus Father Family Medical History: Cancer Additional Family Medical History / Comment(s): Skin cancer. Medications and Allergies Home Medications Medication Instructions Recorded Confirmed Type DULoxetine HCL [Cymbalta] 30 mg PO DAILY 09/10/19 06/21/22 History Sucralfate [Carafate] 1 gm PO QID 09/10/19 06/21/22 History Atorvastatin [Lipitor] 40 mg PO DAILY 10/09/21 06/21/22 History Clopidogrel Bisulfate [Plavix] 75 mg PO DAILY 10/09/21 06/21/22 History QUEtiapine [SEROquel] 100 mg PO HS 10/09/21 06/21/22 History busPIRone HCl [Buspar] 10 mg PO TID 10/09/21 06/21/22 History hydrOXYzine HCL [Atarax] 25 mg PO HS 10/09/21 06/21/22 History traZODone HCL 150 mg PO HS 10/09/21 06/21/22 History Metoprolol Tartrate [Lopressor] 25 mg PO DAILY 06/21/22 06/21/22 History Omeprazole 20 mg PO DAILY 06/21/22 06/21/22 History Valsartan 40 mg PO DAILY 06/21/22 06/21/22 History Aspirin 81 mg PO DAILY #30 tab 06/22/22 Rx oxyCODONE HCL/ACETAMINOPHEN 1 tab PO Q4HR PRN 3 Days #18 tab 06/22/22 Rx [Percocet 10-325 mg] Allergies Allergy/AdvReac Type Severity Reaction Status Date / Time gabapentin Allergy Unknown Verified 06/21/22 19:29 Sulfa (Sulfonamide Allergy "ellis" Verified 06/21/22 19:29 Antibiotics) sulfamethoxazole Allergy "ellis" Verified 06/21/22 19:29 [From Bactrim] trimethoprim [From Bactrim] Allergy "ellis" Verified 06/21/22 19:29 NSAIDS (Non-Steroidal AdvReac Unknown Verified 06/21/22 20:03 Anti-Inflamma Physical Exam Vitals: Vital Signs Temp Pulse Pulse Resp BP BP Pulse Ox 09/17/22 03:01 98.4 F 86 12 138/95 99 09/17/22 02:47 77 18 108/61 99 09/17/22 01:52 72 16 121/87 99 09/16/22 23:28 75 18 118/80 98 09/16/22 22:27 80 18 97/67 98 09/16/22 21:09 97 F L 90 16 127/87 94 L Intake and Output 09/16/22 09/16/22 09/17/22 14:59 22:59 06:59 Other: Voiding Method Toilet Weight 108.862 kg 108.862 kg Results CBC & Chem 7: 09/16/22 22:37 09/16/22 23:25 Labs: Abnormal Lab Results - Last 24 Hours (Table) 09/16/22 09/16/22 09/16/22 Range/Units 22:37 22:37 23:25 RDW 15.7 H (11.5-15.5) % APTT 20.5 L (22.0-30.0) sec Sodium 133 L (137-145) mmol/L Thrombosis Risk Factor Assmnt - Choose All That Apply Any of the Below Risk Factors Present?: Yes Each Factor Represents 1 point: Age 41-60 years, Obesity (BMI >25) Other Risk Factors: Yes Each Risk Factor Represents 3 Points: History of DVT/PE Other congenital or acquired thrombophilia - If yes, enter type in comment: No Thrombosis Risk Factor Assessment Total Risk Factor Score: 5 Thrombosis Risk Factor Assessment Level: High Risk
[2022-09-17] MEDS: SODIUM CHLORIDE 0.9% 1,000 ML IV SCH ×2 (06:45→17:45)
[2022-09-17] MEDS: ACETAMINOPHEN TAB 500 MG TAB PO PRN (09:56)
[2022-09-17] MEDS ORDERED: TICAGRELOR 90 MG TAB PO STA (09:57)
[2022-09-17] MEDS ORDERED: KETOROLAC 15 MG/ML 1 ML VIAL IM STA (10:41)
--- NOTE | 2022-09-17 10:41 | P.CNNES ---
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 Patient stated that the yesterday she developed difficulty getting words out unable to speak and had numbness of both hands lasting few minutes yesterday and then resolved spontaneously. She stated for past one week having posterior left thigh pain that has ascended up to left side of chest then right side. Patient is concerned that she has history of DVT and this could be another DVT. Patient is on home medication of aspirin 81 mg, Plavix every 5, Lipitor 40 mg daily. She currently is searching for another neurologist since her previous one retired (Dr. Domínguez). She stated she had multiple stroke about 4 of them and last one was April/May 2021. Her second stroke she received tpa. She had residual left sided weakness and speech difficulty from her stroke. She was told her stroke were due to possible PFO that was throwing clots and had it closed about a year ago. Some of the workup during his hospital visit consisted of: Chemistry panel is the sodium is 133 otherwise rest of chemistry panel is unremarkable CT of the head is reported as old right posterior temporal lobe cortical infarct. No acute cranial abnormality. No change compared to old exam. I personally could not review the CT of the head because of issues with the system Venous duplex of the left lower extremity is negative for DVT. Per the ED physician, it is documented that the patient has recurrent shake and slurred speech altered mental status in the ER all symptoms resolved on their own and he felt that patient's symptoms or TIA. No IV TPA since his symptoms has resolved and the risks outweigh the benefit. Review of Systems Review of system: The 12 point system was reviewed and apparent positive and n egative per HPI. Past Medical History Past Medical History: Blood Disorder, CVA/TIA, Deep Vein Thrombosis (DVT), Fibromyalgia, Memory Impairment, Skin Disorder Additional Past Medical History / Comment(s): CVA X4, last one 05/10/21, has hard time walking sometimes, speech and memory issues. Low BP, migraines, heart murmer, ulcer, hx stool impactions, sores on legs, hx DVT right leg, hx DVT right upper arm X4, anemia. Hx Covid 08/30, with occasional cough since, uses inhaler as needed. Blood disorder, unknown name. Tachycardia. History of Any Multi-Drug Resistant Organisms: None Reported Past Surgical History: Bariatric Surgery, Cholecystectomy Additional Past Surgical History / Comment(s): D&C X2, gastric bypass 2007, surgery for mesanteric defect, PFO closure. Past Anesthesia/Blood Transfusion Reactions: Motion Sickness, Postoperative Nausea & Vomiting (PONV) Past Psychological History: Anxiety, Depression Smoking Status: Never smoker Past Alcohol Use History: Occasional Past Drug Use History: Marijuana Additional Drug Use History / Comment(s): Marijuana use once a week. Aware no use 24 hrs prior to procedure. - Past Family History Mother Family Medical History: Cancer, Deep Vein Thrombosis (DVT), Pulmonary Embolus Father Family Medical History: Cancer Additional Family Medical History / Comment(s): Skin cancer. Medications and Allergies Home Medications Medication Instructions Recorded Confirmed Type DULoxetine HCL [Cymbalta] 30 mg PO DAILY 09/10/19 06/21/22 History Sucralfate [Carafate] 1 gm PO QID 09/10/19 06/21/22 History Atorvastatin [Lipitor] 40 mg PO DAILY 10/09/21 06/21/22 History Clopidogrel Bisulfate [Plavix] 75 mg PO DAILY 10/09/21 06/21/22 History QUEtiapine [SEROquel] 100 mg PO HS 10/09/21 06/21/22 History busPIRone HCl [Buspar] 10 mg PO TID 10/09/21 06/21/22 History hydrOXYzine HCL [Atarax] 25 mg PO HS 10/09/21 06/21/22 History traZODone HCL 150 mg PO HS 10/09/21 06/21/22 History Metoprolol Tartrate [Lopressor] 25 mg PO DAILY 06/21/22 06/21/22 History Omeprazole 20 mg PO DAILY 06/21/22 06/21/22 History Valsartan 40 mg PO DAILY 06/21/22 06/21/22 History Aspirin 81 mg PO DAILY #30 tab 06/22/22 Rx oxyCODONE HCL/ACETAMINOPHEN 1 tab PO Q4HR PRN 3 Days #18 tab 06/22/22 Rx [Percocet 10-325 mg] Allergies Allergy/AdvReac Type Severity Reaction Status Date / Time gabapentin Allergy Unknown Verified 06/21/22 19:29 Sulfa (Sulfonamide Allergy "ellis" Verified 06/21/22 19:29 Antibiotics) sulfamethoxazole Allergy "ellis" Verified 06/21/22 19:29 [From Bactrim] trimethoprim [From Bactrim] Allergy "ellis" Verified 06/21/22 19:29 NSAIDS (Non-Steroidal AdvReac Unknown Verified 06/21/22 20:03 Anti-Inflamma Physical Examination - Vital Signs Vital Signs: Vital Signs Temp Pulse Pulse Resp BP BP Pulse Ox 09/17/22 07:55 98.1 F 75 16 114/76 97 09/17/22 03:01 98.4 F 86 12 138/95 99 09/17/22 02:47 77 18 108/61 99 09/17/22 01:52 72 16 121/87 99 09/16/22 23:28 75 18 118/80 98 09/16/22 22:27 80 18 97/67 98 09/16/22 21:09 97 F L 90 16 127/87 94 L Intake and Output 09/16/22 09/17/22 09/17/22 22:59 06:59 14:59 Other: Voiding Method Toilet Toilet # Voids 1 Weight 108.862 kg 108.862 kg GENERAL: The patient is lying in bed and is not in acute distress. CHEST: The heart rate is regular rate rhythm. No murmurs to auscultation. No carotid bruit bilaterally. LUNG: Clear to auscultation bilaterally no wheezing noted throughout. Not labored breathing. ABDOMEN/GI: Bowel sounds present in all 4 quadrants. No tenderness to palpation throughout. NEUROLOGICAL: Higher mental function: The patient is awake, alert, oriented to self, place and time. She has some delay responding. Patient is following simple commands. Has difficulty getting words out and appears expressive (old according to her). No neglect. Cranial nerves: The pupils are round, equal and reactive to light and accommodation. Visual harmon are full to confrontation throughout. Extraocular movement is intact no nystagmus is noted. Facial sensation is normal to touch throughout. The facial strength is mild left nasolabial flattening. Hearing is normal bilaterally to hand rub. Tongue is midline and moved [id number] without any difficulty. No dysarthria is noted. Shoulder shrug is normal bilaterally. Motor: The strength is left upper with hand kettle tender is 4 while left lower is 4+ to 5-. Otherwise right sided 5 over 5 throughout. Normal tone and bulk. Cerebellum: Normal finger to nose bilaterally. Sensation: Sensation is normal to touch throughout. Reflexes (right/left): 2+ throughout. Plantars are mute bilaterally. Results - Laboratory Findings CBC and BMP: 09/16/22 22:37 09/16/22 23:25 Abnormal Lab Findings: Abnormal Labs 09/16/22 09/16/22 09/16/22 22:37 22:37 23:25 RDW 15.7 H APTT 20.5 L Sodium 133 L Assessment and Plan Assessment: Transient episode of expressive aphasia and numbness of both hands is due to Transient ischemic attack Pain in the posterior left thigh and her venous duplex was negative for DVT History of stroke of multiple strokes (about 4) and last one was Summer 2020. Received IV tpa on her second stroke-like symptoms. CT seems that the patient has an old right posterior temporal with residual weakness PFO closure about a year ago History of DVT non-anticoagulation Plan: I ordered MRI of the brain to rule out stroke on imaging not seen on CT, CTA of the head and neck with CT venogram to rule out any intracranial/venous thrombosis. I started the patient on Brilinta 90mg 1 tab bid with loading 180mg once. Continued her home dose ASA 81mg daily. Stopped her home dose Plavix since she failed medication. Ordered lipid panel, TSH, HbA1c, 2D echo with PFO study. Ordered Vitamin B12, folate and HbA1 because of paresthesia to rule out other causes. Consulted PT, OT and CALENDER SUPERVISOR. Neuro necks Cardiac monitoring Will defer the rest of medical management to the primary team. For DVT prophylaxis: started on subq heparin 5000U every 8 hours. Thank you for the consultation. Time with Patient: Greater than 30
[2022-09-17] MEDS: ASPIRIN 81 MG PO SCH (11:04)
--- NOTE | 2022-09-17 12:38 | P.PN ---
Progress Note - Text Progress Note Date: 09/17/22 Hospitalist Interval Note Patient seen and examined at bedside. Vital signs reviewed General: non toxic, no distress, appears at stated age, morbidly obese Derm: no unusual rashes/lesions, warm Head: atraumatic, normocephalic, symmetric Eyes: EOMI, no lid lag, anicteric sclera, pupils equal round reactive to light ENT: Nose and ears atraumatic Neck: supple Mouth: no lip lesion, mucus membranes moist Cardiovascular: S1S2 reg, no murmur, positive dorsalis pedis pulse bilateral, no edema Lungs: CTA bilateral, no rhonchi, no rales, no accessory muscle use Abdominal: soft, nontender to palpation, no guarding Ext: muscle strength 5 out of 5 in 3 extremities grossly, left upper 4/5 strength, no gross muscle atrophy, no contractures, no calf or thigh tenderness noted on exam Neuro: CN II-XI grossly intact, no gross focal neuro deficits Psych: Alert, oriented, appropriate affect Assessment/Plan: Possible TIA History of multiple strokes History of PFO with closure History of DVT, not on anticoagulation -Neurology consulted -MRI pending -Not started on brilinta, and aspirin -Labs and echo pending -VQ scan pending This is an update note for patient , for full note on 09/17/22 at 5:31. There is no charge associated with this note.
--- NOTE | 2022-09-17 14:02 | NM ---
EXAMINATION TYPE: NM pul vent and perfuse DATE OF EXAM: 09/17/2022 COMPARISON: 09/16/2022 chest x-ray HISTORY: Chest pain TECHNIQUE: Utilizing inhalation of 39.7 mCi Tc 99m DTPA aerosol and intravenous injection of 3.97 mC i of Tc 99m MAA, ventilation and perfusion images are acquired post injection in multiple projections . FINDINGS: Normal radiotracer distribution is noted in the lungs. There is no evidence of mismatched defects. Th ere is elevation of the right hemidiaphragm which is compatible with the x-ray finding. IMPRESSION: Low probability for pulmonary embolism.
--- NOTE | 2022-09-17 14:53 | CT ---
EXAMINATION TYPE: CT angio head neck, CT Venogram Head CT DLP: 575.3 mGycm, Automated exposure control for dose reduction was used. DATE OF EXAM: 09/17/2022 2:38 PM COMPARISON: CT brain same day. CLINICAL INDICATION:Female, 47 years old with history of stroke. speech difficulty, Stroke and dyspha ruel. TECHNIQUE: Axially acquired helical CT angiogram of the head and neck was obtained with contrast. Axi al images are supplemented with 3D reconstructions [facility] criteria used. CT venogram was performed with axial imaging with sagittal and coronal reformats IV contrast. Imaging performed around 45 seconds post injection evaluation of the venous structures. 3-D reconstructions were processed on a separate workstation. Contrast used:65ml mL of Isovue 370 with IV Contrast, Oral contrast used: None. FINDINGS: CTV BRAIN: There is no evidence of venous occlusion or collateral circulation. There is no evidence of sinus th rombosis. CTA HEAD: No evidence of acute intracranial hemorrhage, mass effect, or midline shift. The ventricles, sulci, a nd cisterns are unremarkable. Remote injury to the right temporal/parietal region is unchanged. The visualized portions of the internal carotid arteries, middle cerebral arteries, anterior cerebral arteries, and posterior cerebral arteries are patent. There is a diminutive left A1 segment. The basilar and vertebral arteries are patent. CTA NECK: Right Carotid System: The common carotid artery and external carotid artery are patent. The carotid bifurcation demonstrate s no evidence of hemodynamically significant stenosis. The remaining portions of the internal carotid artery demonstrate normal size without significant narrowing. Left Carotid System: The common carotid artery and external carotid artery are patent. The carotid bifurcation demonstrate s no evidence of hemodynamically significant stenosis. The remaining portions of the internal carotid artery demonstrate normal size without significant narrowing. Vertebral arteries are patent without evidence hemodynamically significant stenosis. There is a three-vessel aortic arch. The origins of the great vessels are patent. No evidence of hemo dynamically significant stenosis. IMPRESSION: 1. No evidence of dissection of the cervical internal carotid arteries or vertebral arteries or any e vidence of significant stenosis at the carotid bifurcations. 2. No evidence of intracranial high-grade stenosis or intracranial aneurysm. 3. No evidence of venous sinus thrombosis.
[2022-09-17] MEDS ORDERED: SUCRALFATE 1 GM TAB PO PRN (14:58)
[2022-09-17] MEDS ORDERED: KETOROLAC 15 MG/ML 1 ML VIAL IVP STA (15:01)
[2022-09-17] MEDS: HEPARIN SODIUM,PORCINE/PF 5,000 UNIT/0.5 ML SYRINGE SQ SCH ×2 (15:44→23:56)
--- NOTE | 2022-09-17 16:09 | XR ---
EXAMINATION TYPE: XR chest 2V DATE OF EXAM: 09/17/2022 COMPARISON: [id number] TECHNIQUE: PA and lateral views submitted. HISTORY: Cough FINDINGS: The lungs are clear and there is no pneumothorax, pleural effusion, or focal pneumonia. Heart size normal. Elevated right hemidiaphragm. No overt failure IMPRESSION: 1. No acute process.
[2022-09-17 16:10] LABS: Chol/HDL Ratio 2.83 Ratio; LDL Cholesterol,Calculated 92.8 mg/dL (0.0-131.0)
[2022-09-17] MEDS ORDERED: ATORVASTATIN 40 MG TAB PO SCH (21:00)
[2022-09-17 21:29] LABS: Glucose,Whole Blood 118 mg/dL (70-110)
[2022-09-17] MEDS ORDERED: LORazepam 1 MG/0.5 ML VIAL IV STA (22:19)
[2022-09-17] MEDS ORDERED: levETIRAcetam IV 1,000 MG in SALINE 1 100ML.BAG IVPB ONE (22:30)
[2022-09-17] MEDS: ATORVASTATIN 40 MG TAB PO SCH (23:57)
[2022-09-17] MEDS: busPIRone HCl 10 MG TAB PO SCH (23:57)
[2022-09-17] MEDS: QUEtiapine 200 MG TAB PO SCH (23:57)
[2022-09-17] MEDS: hydrOXYzine HCL 25 MG TAB PO SCH (23:58)
[2022-09-18] MEDS: SODIUM CHLORIDE 0.9% 1,000 ML IV SCH ×3 (05:34→18:30)
[2022-09-18] MEDS: PANTOPRAZOLE 40 MG TABLET PO SCH (07:04)
[2022-09-18] MEDS ORDERED: CYANOCOBALAMIN 1,000 MCG/ML 1 ML VIAL IM ONE (08:40)
[2022-09-18] MEDS: VALSARTAN 40 MG TAB PO SCH (08:42)
[2022-09-18] MEDS: VITAMIN A 10,000 UNIT (3000 MCG) CAPSULE PO SCH (08:42)
[2022-09-18] MEDS: HEPARIN SODIUM,PORCINE/PF 5,000 UNIT/0.5 ML SYRINGE SQ SCH ×2 (08:42→16:29)
[2022-09-18] MEDS: METOPROLOL TARTRATE 25 MG TAB PO SCH (08:42)
[2022-09-18] MEDS: TICAGRELOR 90 MG TAB PO SCH ×2 (08:42→21:33)
[2022-09-18] MEDS: VITAMIN E (DL,TOCOPHERYL ACET) 400 UNIT (180 MG) CAP PO SCH (08:42)
[2022-09-18] MEDS: traZODone HCL 50 MG TAB PO SCH (08:43)
[2022-09-18] MEDS: busPIRone HCl 10 MG TAB PO SCH ×2 (08:43→21:33)
[2022-09-18] MEDS: ASPIRIN 81 MG PO SCH (08:43)
[2022-09-18] MEDS: DULoxetine HCL 30 MG CAPSULE.DR PO SCH (08:43)
[2022-09-18 08:44] LABS: ALT 18 U/L (4-34); African American GFR (CKD) >90 (>60 ml/min/1.73 sqM); Albumin 3.2 g/dL (3.5-5.0); Anion Gap 3 mmol/L; Blood Urea Nitrogen 11 mg/dL (7-17); Calcium 7.9 mg/dL (8.4-10.2); Carbon Dioxide 21 mmol/L (22-30); Chloride 113 mmol/L (98-107); Glucose 79 mg/dL (74-99); Non-African American GFR(CKD) >90 (>60 ml/min/1.73 sqM); Sodium 137 mmol/L (137-145); Total Bilirubin 0.5 mg/dL (0.2-1.3); Total Protein 5.4 g/dL (6.3-8.2)
[2022-09-18 08:46] LABS: AST 29 U/L (14-36); Alkaline Phosphatase 77 U/L (38-126); Phosphorus 3.4 mg/dL (2.5-4.5); Potassium 4.5 mmol/L (3.5-5.1)
[2022-09-18] MEDS ORDERED: NON FORMULARY DRUG (Turmeric Root Extract [Turmeric] 500 MG Tablet) PO SCH (09:00)
[2022-09-18] MEDS ORDERED: BUTALB/APAP/CAFF 50-325-40MG TAB PO STA (09:37)
[2022-09-18 10:58] LABS: HCT 30.8 % (34.0-46.0); Hypochromasia Slight; MCH 27.1 pg (25.0-35.0); MCHC 32.6 g/dL (31.0-37.0); MCV 83.1 fL (80.0-100.0); Platelet Count 254 k/uL (150-450); RDW 15.8 % (11.5-15.5); WBC 7.7 k/uL (3.8-10.6)
[2022-09-18 11:31] LABS: Prolactin 18.9 ng/mL (2.800-29.200)
--- NOTE | 2022-09-18 11:32 | P.PN ---
Subjective Progress Note Date: 09/18/22 Principal diagnosis: stroke Hospital Course: 47-year-old female with history of CVA with residual bilateral lower extremity weakness, history of DVT not on anticoagulation, hypertension, dyslipidemia presented with concerns of expressive aphasia, bilateral hand numbness, left posterior thigh pain. Initial CT head showed evidence of prior CVAs. Neurology was consulted. CTA head and neck showed no evidence of dissection, or any evidence of significant stenosis. MRI pending. There was concern of possible PE. VQ scan showed low probability. Subjective: Patient seen and examined at bedside. Overnight patient had possible seizure- like activity. She received IV Keppra, Ativan. Patient pending EEG this morning. She continues to complain of headaches as well. She denies any chest pain, shortness of breath, abdominal pain, urinary or bowel issues. Pertinent positives and negatives as discussed above, a complete review of systems was performed and all other systems are negative. Vitals Signs Reviewed. General: non toxic, no distress, appears at stated age, morbidly obese Derm: no unusual rashes/lesions, warm Head: atraumatic, normocephalic, symmetric Eyes: EOMI, no lid lag, anicteric sclera, pupils equal round reactive to light ENT: Nose and ears atraumatic Neck: supple Mouth: no lip lesion, mucus membranes moist Cardiovascular: S1S2 reg, no murmur, positive dorsalis pedis pulse bilateral, no edema Lungs: CTA bilateral, no rhonchi, no rales, no accessory muscle use Abdominal: soft, nontender to palpation, no guarding Ext: muscle strength 5 out of 5 in 3 extremities grossly, left upper 4/5 strength, no gross muscle atrophy, no contractures, no calf or thigh tenderness noted on exam Neuro: CN II-XI grossly intact, no gross focal neuro deficits Psych: Alert, oriented, appropriate affect Assessment and Plan: Possible TIA History of multiple strokes History of PFO with closure Seizure-like activity Headaches -Neurology consulted -MRI brain pending, unclear patient can get MRI given PFO closure -On aspirin and brilinta -given fioricet per neurology -Echo pending -EEG pending -Seizure precautions History of DVT, not on anticoagulation -Negative VQ scan Chronic medical problems: Hypertension Mood disorder HLD GERD - continue home meds DVT ppx: heparin SQ Code status: full code Anticipated discharge place: home Anticipated discharge time: 2+ days Objective - Vital Signs Vital signs: Vital Signs Temp 97.7 F 09/18/22 08:38 Pulse 92 09/18/22 08:38 Resp 12 09/18/22 08:38 BP 119/79 09/18/22 08:38 Pulse Ox 96 09/18/22 08:38 FiO2 Intake & Output 09/17/22 09/18/22 09/18/22 18:59 06:59 18:59 Intake Total 20 128 Balance 20 128 Intake: IV 20 10 Invasive Line 3 20 10 Oral 118 Other: Voiding Method Toilet Toilet Toilet # Voids 2 1 - Labs CBC & Chem 7: 09/18/22 07:12 09/18/22 07:12 Labs: Abnormal Lab Results - Last 24 Hours (Table) 09/16/22 09/16/22 09/17/22 Range/Units 22:37 22:37 21:28 RBC (3.80-5.40) m/uL Hct (34.0-46.0) % RDW (11.5-15.5) % Chloride (98-107) mmol/L Carbon Dioxide (22-30) mmol/L POC Glucose (mg/dL) 118 H (70-110) mg/dL Calcium (8.4-10.2) mg/dL Total Protein (6.3-8.2) g/dL Albumin (3.5-5.0) g/dL Triglycerides 166.00 H (0.00-149.00) mg/dL HDL Cholesterol 69.00 H (40.00-60.00) mg/dL Folate 34.30 H (4.40-31.00) ng/mL 09/18/22 09/18/22 Range/Units 07:12 07:12 RBC 3.70 L (3.80-5.40) m/uL Hct 30.8 L (34.0-46.0) % RDW 15.8 H (11.5-15.5) % Chloride 113 H (98-107) mmol/L Carbon Dioxide 21 L (22-30) mmol/L POC Glucose (mg/dL) (70-110) mg/dL Calcium 7.9 L (8.4-10.2) mg/dL Total Protein 5.4 L (6.3-8.2) g/dL Albumin 3.2 L (3.5-5.0) g/dL Triglycerides (0.00-149.00) mg/dL HDL Cholesterol (40.00-60.00) mg/dL Folate (4.40-31.00) ng/mL
--- NOTE | 2022-09-18 12:33 | P.PN ---
Subjective Progress Note Date: 09/18/22 The patient is seen at bedside and per overnight nurse, yesterday at 10pm, I was notified the patient's had a witnessed episode of staring off at the ceiling not following commands that started to have involuntary movement of her extremities mostly uppers and the raw walton and immediately dropped to 85% and she became tachycardiac that his speech became slurred thin the was not following commands and this incident happened around 9:21 PM yesterday. As a result I notified the nurse to give the patient Ativan 1 mg and loaded the patient with Keppra 1000 mg because of concern for seizure-like activity. Today the patient continues to be drowsy but was responding to questioning. Objective - Vital Signs Vital signs: Vital Signs Temp 97.7 F 09/18/22 08:38 Pulse 92 09/18/22 08:38 Resp 12 09/18/22 08:38 BP 119/79 09/18/22 08:38 Pulse Ox 96 09/18/22 08:38 FiO2 Intake & Output 09/17/22 09/18/22 09/18/22 18:59 06:59 18:59 Intake Total 20 128 Balance 20 128 Intake: IV 20 10 Invasive Line 3 20 10 Oral 118 Other: Voiding Method Toilet Toilet Toilet # Voids 2 1 - Exam GENERAL: The patient is lying in bed and is not in acute distress. NEUROLOGICAL: Limited because of cooperation. Higher mental function: The patient is moderately drowsy but is awakeable to voice. Is , oriented to self, place and time. Delay in responding. Patient is following simple commands. Has difficulty getting words out and appears expressive (old according to her). No neglect. Cranial nerves: The pupils are round, equal and reactive to light . Visual harmon are full to confrontation throughout. Extraocular movement is intact no nystagmus is noted. The facial strength is mild left nasolabial flattening. No dysarthria is noted but is hypophonic. Shoulder shrug is normal bilaterally. Motor: The strength is left upper with hand healthcare technician is 4 while left lower is 4+ to 5-. Otherwise right sided 5 over 5 throughout. Sensation: Sensation is normal to touch throughout. Some of the workup during his hospital visit consisted of: Lipid panel as triglyceride 166, cholesterol is 195, LDL 92 and HDL 69 Putting B12 252 is considered the very low normal Hemoglobin A1c is 5.6 Serum folate is 34.30 CT of the head is reported as old right posterior temporal lobe cortical infarct. No acute cranial abnormality. No change compared to old exam. I personally could not review the CT of the head because of issues with the system CT angiography of the head and neck and CTV was reported as no evidence of dissection of the cervical internal carotid arteries or vertebral arteries or evidence of significant stenosis at the carotid bifurcation. No evidence of intracranial high-grade stenosis or intracranial aneurysm. No evidence for venous sinus thrombosis. Venous duplex of the left lower extremity is negative for DVT. Prolactin level is 18.90 and the plasma lock acid vein is 1.0 and serum glucose is 91 during the patient's staring off and with involuntary movements on 09/17/2022 at the evening. - Labs CBC & Chem 7: 09/18/22 07:12 09/18/22 07:12 Labs: Abnormal Lab Results - Last 24 Hours (Table) 09/16/22 09/16/22 09/17/22 Range/Units 22:37 22:37 21:28 RBC (3.80-5.40) m/uL Hct (34.0-46.0) % RDW (11.5-15.5) % Chloride (98-107) mmol/L Carbon Dioxide (22-30) mmol/L POC Glucose (mg/dL) 118 H (70-110) mg/dL Calcium (8.4-10.2) mg/dL Total Protein (6.3-8.2) g/dL Albumin (3.5-5.0) g/dL Triglycerides 166.00 H (0.00-149.00) mg/dL HDL Cholesterol 69.00 H (40.00-60.00) mg/dL Folate 34.30 H (4.40-31.00) ng/mL 09/18/22 09/18/22 Range/Units 07:12 07:12 RBC 3.70 L (3.80-5.40) m/uL Hct 30.8 L (34.0-46.0) % RDW 15.8 H (11.5-15.5) % Chloride 113 H (98-107) mmol/L Carbon Dioxide 21 L (22-30) mmol/L POC Glucose (mg/dL) (70-110) mg/dL Calcium 7.9 L (8.4-10.2) mg/dL Total Protein 5.4 L (6.3-8.2) g/dL Albumin 3.2 L (3.5-5.0) g/dL Triglycerides (0.00-149.00) mg/dL HDL Cholesterol (40.00-60.00) mg/dL Folate (4.40-31.00) ng/mL Assessment and Plan Assessment: Repeated transient episode of expressive aphasia and numbness of both hands, confusion, staring off and involuntary movement of extremities: Rule out seizure especially with hx of stroke (but lactic acid and prolactin) are normal which with seizure would expect to be reactive. Rule out TIA. Pain in the posterior left thigh and her venous duplex was negative for DVT History of stroke of multiple strokes (about 4) and last one was Summer 2020. Received IV tpa on her second stroke-like symptoms. CT seems that the patient has an old right posterior temporal with residual weakness PFO closure about a year ago History of DVT non-anticoagulation Plan: Pending routine EEG. Will assess if any seizure or discharges on EEG before starting on scheduled medication. Pending MRI Brain (not sure if PFO closure compatible). Continue Brilinta 90mg 1 tab bid (new during this admission) and continue home ASA 81mg daily. Stopped her home dose Plavix since she failed medication. Pending TSH, 2D echo with PFO study. Because of this severely low normal vitamin B12 I start the patient on vitamin B12 at thousand microgram once IM then starting tomorrow by mouth. Consulted PT, OT and ROLL EDGE STITCHER HAND. Neuro necks Cardiac monitoring Will defer the rest of medical management to the primary team. For DVT prophylaxis: started on subq heparin 5000U every 8 hours. The plan is discussed with nurse. UPDATE: Preliminary EEG: Is normal. Time with Patient: Less than 30
[2022-09-18 13:18] LABS: Eosinophils # (M) 0.39 k/uL (0-0.7); Lymphocytes # (M) 2.46 k/uL (1.0-4.8); Monocytes # (M) 0.69 k/uL (0-1.0); Neutrophils # (M) 4.16 k/uL (1.3-7.7); Neutrophils % (M) 54 %; Nucleated Red Blood Cells 0 /100 WBC (0-0); Total Cells Counted 100
--- NOTE | 2022-09-18 17:50 | MR ---
EXAMINATION TYPE: MR brain wo con DATE OF EXAM: 09/18/2022 COMPARISON: None HISTORY: aphasia. Multiplanar multiecho imaging of the brain performed without contrast. There is diffuse cerebral cortical atrophy. There is more noticeable atrophy in the right temporal lo be. On the T2 and FLAIR images there is abnormal increased cortical signal measuring 4.5 x 2.5 cm in the right posterior temporal lobe and consistent with subacute infarct. There is no midline shift. No sign of intracranial hemorrhage. The corpus callosum is intact. The brainstem is intact. No evidence of orbital mass. The sella turcic a appears normal. IMPRESSION: Subacute infarct right posterior temporal lobe without change in size compared to CT scan yesterday. Mild cerebral atrophy.
--- NOTE | 2022-09-18 18:56 | CA ---
Transthoracic Echo Report Name: Debbie Herring Age: 47 Gender: F : 1975 Exam Date: 09/17/2022 13:45 Exam Location: [facility] Ht (in): 65 Wt (lb): 240 Ordering Physician: Meek Contreras MD Attending/Referring Phys: Instructional Interventionist Kymberly Cleaning RDCS Procedure CPT: Indications: stroke. Perform with bubble study Cardiac Hx: Hx of PFO closure Technical Quality: Fair Contrast 1: Total Dose (mL): Contrast 2: Total Dose (mL): MEASUREMENTS (Male / Female) Normal Values FINDINGS Left Ventricle Left ventricular ejection fraction is estimated at 60-65 %. Right Ventricle Right Atrium Negative agitated saline bubble study for right to left shunt. However the images quality is suboptimal Left Atrium Mitral Valve Aortic Valve Tricuspid Valve Pulmonic Valve Pericardium Normal pericardium. No pericardial effusion. Aorta CONCLUSIONS Normal left ventricular dimension and systolic function Agitated saline injection was performed. No evidence off interatrial shunt. Please note the image quality is suboptimal Previewed by: Dr. Josh Moore MD (Electronically Signed) Final Date: 18 September 2022 18:55
[2022-09-18] MEDS ORDERED: LORazepam 1 MG/0.5 ML VIAL ONE (19:04)
[2022-09-18] MEDS: ATORVASTATIN 40 MG TAB PO SCH (21:33)
[2022-09-18] MEDS: hydrOXYzine HCL 25 MG TAB PO SCH (21:33)
[2022-09-18] MEDS: QUEtiapine 200 MG TAB PO SCH (21:33)
--- NOTE | 2022-09-18 22:37 | EEG ---
ELECTROENCEPHALOGRAM REPORT CLINICAL HISTORY: This is a 47-year-old woman who has confusion and abnormal involuntary movement of her extremities. The video EEG is obtained to evaluate for seizure epileptiform activity. RELEVANT MEDICATIONS: Ativan 1 mg and Keppra 1000 mg once. EEG TYPE: A routine 21-channel EEG is performed with video using the 10/20 electrode placement system. DESCRIPTION: A brief wakefulness, but predominantly drowsiness was noted. During awake state, the background consists of 9 hertz activity, but most of the study the patient was in drowsy states. There was no physiological sleep architecture. There is no focal slowing. Interictal and ictal is none. ACTIVATION PROCEDURE: Photic stimulation did not evoke a posterior driving response. There is no abnormality during the photic stimulation. Hyperventilation is not performed. CLINICAL INTERPRETATION: This is a normal routine EEG. There is no focal slowing, epileptiform discharge, or seizure on the EEG. A normal EEG does not exclude epilepsy. Clinical correlation is recommended. AJ / ABENA: [id number] / MTDD
[2022-09-19] MEDS: HEPARIN SODIUM,PORCINE/PF 5,000 UNIT/0.5 ML SYRINGE SQ SCH ×3 (00:12→15:58)
[2022-09-19] MEDS: PANTOPRAZOLE 40 MG TABLET PO SCH (06:31)
[2022-09-19] MEDS: SODIUM CHLORIDE 0.9% 1,000 ML IV SCH ×3 (08:22→15:58)
[2022-09-19] MEDS: busPIRone HCl 10 MG TAB PO SCH (08:31)
[2022-09-19] MEDS: VALSARTAN 40 MG TAB PO SCH (08:31)
[2022-09-19] MEDS: METOPROLOL TARTRATE 25 MG TAB PO SCH (08:31)
[2022-09-19] MEDS: ASPIRIN 81 MG PO SCH (08:31)
[2022-09-19] MEDS: VITAMIN E (DL,TOCOPHERYL ACET) 400 UNIT (180 MG) CAP PO SCH (08:31)
[2022-09-19] MEDS: TICAGRELOR 90 MG TAB PO SCH (08:31)
[2022-09-19] MEDS: VITAMIN A 10,000 UNIT (3000 MCG) CAPSULE PO SCH (08:31)
[2022-09-19] MEDS: traZODone HCL 50 MG TAB PO SCH (08:31)
[2022-09-19] MEDS: DULoxetine HCL 30 MG CAPSULE.DR PO SCH (08:31)
[2022-09-19] MEDS ORDERED: CYANOCOBALAMIN 500 MCG TAB PO SCH (09:00)
[2022-09-19] MEDS ORDERED: LACOSAMIDE IV 100 MG in SODIUM CHLORIDE 0.9% 50 ML IVPB STA (11:07)
[2022-09-19 12:18] VITALS: RESP 18
[2022-09-19] MEDS: ACETAMINOPHEN TAB 500 MG TAB PO PRN (13:19)
--- NOTE | 2022-09-19 14:06 | P.PN ---
Subjective Progress Note Date: 09/19/22 The patient is seen at bedside and it seems patient had an event yesterday around 6ish pm and episode lasted for 4 minute but she she responded to painful stimuli, voice and has no new focal deficits. After episode she was tired and had headache. Currently she feels at baseline and requesting to go home. No further episode today. I spoke with primary team and she notified team that she has been having waxing and waning episode of confusion and abnormal movement for possible 1.5 years. She has bipolar and not on medication according to her. Objective - Vital Signs Vital signs: Vital Signs Temp 98.1 F 09/19/22 08:26 Pulse 65 09/19/22 13:46 Resp 18 09/19/22 13:46 BP 100/72 09/19/22 11:38 Pulse Ox 96 09/19/22 11:38 FiO2 Intake & Output 09/18/22 09/19/22 09/19/22 18:59 06:59 18:59 Intake Total 826 0 Balance 826 0 Intake: IV 20 Invasive Line 3 20 Oral 806 0 Other: Voiding Method Toilet Toilet Toilet # Voids 2 4 # Bowel Movements 1 - Exam GENERAL: The patient is lying in bed and is not in acute distress. NEUROLOGICAL: Limited because of cooperation. Higher mental function: The patient is awake, alert, oriented to self, place and time. She is more responsive today compared to yesterday. Patient is following simple commands. Has minimal difficulty getting words out and appears expressive (old according to her). No neglect. Cranial nerves: The pupils are round, equal and reactive to light . Visual harmon are full to confrontation throughout. Extraocular movement is intact no nystagmus is noted. The facial strength is mild left nasolabial flattening. No dysarthria is noted but is hypophonic. Shoulder shrug is normal bilaterally. Motor: The strength is left upper with hand single corner cutter is 4 while left lower is 4+ to 5-. Otherwise right sided 5 over 5 throughout. Sensation: Sensation is normal to touch throughout. Some of the workup during his hospital visit consisted of: Lipid panel as triglyceride 166, cholesterol is 195, LDL 92 and HDL 69 B12 252 is considered the very low normal Hemoglobin A1c is 5.6 Serum folate is 34.30 CT of the head is reported as old right posterior temporal lobe cortical infarct. No acute cranial abnormality. No change compared to old exam. I personally could not review the CT of the head because of issues with the system CT angiography of the head and neck and CTV was reported as no evidence of dissection of the cervical internal carotid arteries or vertebral arteries or evidence of significant stenosis at the carotid bifurcation. No evidence of intracranial high-grade stenosis or intracranial aneurysm. No evidence for venous sinus thrombosis. Venous duplex of the left lower extremity is negative for DVT. Prolactin level is 18.90 and the plasma lock acid vein is 1.0 and serum glucose is 91 during the patient's staring off and with involuntary movements on 09/17/2022 at the evening. Routine EEG is normal. Most of study was in a drowsy state. There is no focal slowing, epileptiform discharges or seizure. Limited 2D echo: Normal left ventricular dimension and systolic function. Agitated saline injection was performed and no evidence for interatrial shunt. MRI Brain is reported as subacute infarct right posterior temporal lobe without change in size compared to CT scan yesterday. Mild cerebral atrophy. I personally reviewed MRI Brain and I felt there is no acute or subacute ischemic stroke. I personally discussed the case with a different reading radiologist (Dr. Layton) and he agreed and he felt has no restriction diffuction. But has encephalomalacia over right temporal and parietal region. - Labs CBC & Chem 7: 09/18/22 07:12 09/18/22 07:12 Labs: Abnormal Lab Results - Last 24 Hours (Table) 09/18/22 Range/Units 07:12 Hgb 10.0 L D (11.4-16.0) gm/dL Assessment and Plan Assessment: Repeated transient episode of expressive aphasia and numbness of both hands, confusion, staring off and involuntary movement of extremities: Possible seizure (especially has history of stroke that can cause cortical irritability). Does not appear TIA. Not stroke on MRI Brain. Her EEG was normal, lactic acid and prolactin was within normal limits but can possibly be normal in focal seizure Pain in the posterior left thigh and her venous duplex was negative for DVT History of stroke of multiple strokes (about 4) and last one was Summer 2020. Received IV tpa on her second stroke-like symptoms. CT seems that the patient has an old right posterior temporal with residual weakness PFO closure about a year ago History of DVT non-anticoagulation Plan: I started the patient on Vimpat 50mg 1 tab bid and loaded with one time 100mg. Not Keppra because of her psychiatric issues which can worsening mood disorder. Can consider Lamictal with titration as outpatient (avoid Depakote because of side-effects of obesity and many other factors). Recommend prolonged EEG/Epilepsy monitoring unit as outpatient to capture her episodes. Continue Brilinta 90mg 1 tab bid (new during this admission) and continue home ASA 81mg daily. Stopped her home dose Plavix because of concern of TIA. Recommend dual antiplatlets for 21 days and after that stop ASA but continue Brilinta. Because of this severely low normal vitamin B12: continue vitamin B12 1000mcg daily. Consulted PT, OT and CR[employer]LE[employer] REP. Neuro necks Cardiac monitoring Recommend patient to follow-up with psychiatrist as outpatient. Will defer the rest of medical management to the primary team. For DVT prophylaxis: started on subq heparin 5000U every 8 hours. Recommend patient to follow-up with neurologist as outpatient within 1-2 weeks. The plan is discussed with patient and primary team. Otherwise no additional work-up. Time with Patient: Less than 30
--- NOTE | 2022-09-19 14:44 | P.DS ---
Providers Date of admission: 09/18/22 11:33 Expected date of discharge: 09/19/22 Attending physician: Rashida Montaño MD Consults: 09/17/22 02:06 Consult Physician Routine Consulting Provider: Meek Contreras Consult Reason/Comments: TIA Do you want consulting provider notified?: Yes Primary care physician: Zachary Catalan MD Hospital Course: Discharge Diagnosis: Possible TIA Seizure-like activity History of multiple strokes History of PFO with closure Headaches History of DVT, not on anticoagulation Hypertension Bipolar disorder Dyslipidemia GERD Hospital Course: 47-year-old female with history of CVA with residual bilateral lower extremity weakness, history of DVT not on anticoagulation, hypertension, dyslipidemia presented with concerns of expressive aphasia, bilateral hand numbness, left posterior thigh pain. Initial CT head showed evidence of old right posterior temporal lobe cortical infarct. Neurology was consulted. CTA head and neck showed no evidence of dissection, or any evidence of significant stenosis. MRI brain without contrast showed similar right parietal temporal region encephalomalacia consistent with remote infarct. There was concern of possible PE. VQ scan showed low probability. For Her pain in the posterior left thigh, venous duplex was negative for DVT. During the course of her hospitalization, patient had few episodes of confusion and abnormal movement concerning for seizure-like activity. Patient had EEG which was normal, lactic acid and prolactin within normal limits. However, patient would benefit from prolonged EEG/epilepsy monitoring as an outpatient. Per neurology, patient discharged on Vimpat 50 mg 1 tab twice a day. Patient already has bipolar disorder, hence, Keppra not chosen. Can consider Lamictal with titration as outpatient if symptoms not controlled on Vimpat. Patient was also switched from aspirin and Plavix to aspirin and Brilinta. Patient seen and examined at bedside. Vital signs reviewed and stable. General: non toxic, no distress, appears at stated age, morbidly obese Derm: no unusual rashes/lesions, warm Head: atraumatic, normocephalic, symmetric Eyes: EOMI, no lid lag, anicteric sclera, pupils equal round reactive to light ENT: Nose and ears atraumatic Neck: supple Mouth: no lip lesion, mucus membranes moist Cardiovascular: S1S2 reg, no murmur, positive dorsalis pedis pulse bilateral, no edema Lungs: CTA bilateral, no rhonchi, no rales, no accessory muscle use Abdominal: soft, nontender to palpation, no guarding Ext: no gross muscle atrophy, no contractures Neuro: CN II-XI grossly intact, dysarthria Psych: Alert, oriented, appropriate affect A total of 48 minutes of time were spent preparing this complex discharge summary. Patient was discharged on 09/19/22 at 13:32. Patient Condition at Discharge: Stable Plan - Discharge Summary New Discharge Prescriptions: New Aspirin 81 mg PO DAILY #30 tab Ticagrelor [Brilinta] 90 mg PO BID #60 tab Cyanocobalamin [Vitamin B-12] 1,000 mcg PO DAILY #30 tab Lacosamide [Vimpat] 50 mg PO BID #60 tab Continue DULoxetine HCL [Cymbalta] 30 mg PO DAILY Sucralfate [Carafate] 1 gm PO QID PRN PRN Reason: Gi Upset Omeprazole 20 mg PO DAILY Metoprolol Tartrate [Lopressor] 25 mg PO DAILY traZODone HCL 150 mg PO DAILY hydrOXYzine HCL [Atarax] 25 mg PO HS busPIRone HCl [Buspar] 10 mg PO BID Atorvastatin [Lipitor] 40 mg PO HS Valsartan 40 mg PO DAILY QUEtiapine [SEROquel] 200 mg PO HS Vitamin E (Dl,Tocopheryl Acet) [Vitamin E (400 Iu = 180 mg)] 400 unit PO DAILY Vitamin A 2,400 mcg PO DAILY Acetaminophen Tab [Tylenol] 1,000 mg PO Q6HR PRN PRN Reason: Pain Or Fever > 100.5 Turmeric Root Extract [Turmeric] 500 mg PO DAILY Discontinued Clopidogrel Bisulfate [Plavix] 75 mg PO DAILY Discharge Medication List DULoxetine HCL [Cymbalta] 30 mg PO DAILY 09/10/19 [History] Sucralfate [Carafate] 1 gm PO QID PRN 09/10/19 [History] Atorvastatin [Lipitor] 40 mg PO HS 10/09/21 [History] busPIRone HCl [Buspar] 10 mg PO BID 10/09/21 [History] hydrOXYzine HCL [Atarax] 25 mg PO HS 10/09/21 [History] traZODone HCL 150 mg PO DAILY 10/09/21 [History] Metoprolol Tartrate [Lopressor] 25 mg PO DAILY 06/21/22 [History] Omeprazole 20 mg PO DAILY 06/21/22 [History] Valsartan 40 mg PO DAILY 06/21/22 [History] Acetaminophen Tab [Tylenol] 1,000 mg PO Q6HR PRN 09/17/22 [History] QUEtiapine [SEROquel] 200 mg PO HS 09/17/22 [History] Turmeric Root Extract [Turmeric] 500 mg PO DAILY 09/17/22 [History] Vitamin A 2,400 mcg PO DAILY 09/17/22 [History] Vitamin E (Dl,Tocopheryl Acet) [Vitamin E (400 Iu = 180 mg)] 400 unit PO DAILY 09/17/22 [History] Aspirin 81 mg PO DAILY #30 tab 09/19/22 [Rx] Cyanocobalamin [Vitamin B-12] 1,000 mcg PO DAILY #30 tab 09/19/22 [Rx] Lacosamide [Vimpat] 50 mg PO BID #60 tab 09/19/22 [Rx] Ticagrelor [Brilinta] 90 mg PO BID #60 tab 09/19/22 [Rx] Follow up Appointment(s)/Referral(s): Zachary Catalan MD [Primary Care Provider] - 1-2 Days Patient Instructions/Handouts: Epilepsy (GEN) Activity/Diet/Wound Care/Special Instructions: Please see neurologist as soon as possible for further work up for seizure like activity. Please see your PCP as soon as possible. Take your medicines exactly as prescribed. Call your doctor if you think you are having a problem with your medicine. Do not drive a car, operate machinery, swim, climb ladders, or do any other activity that could be dangerous to you or others until your doctor says it is safe to do so. Be sure that anyone treating you for any health problem knows that you may have had a seizure and what medicines you are taking for it. Identify and avoid things that may make you more likely to have a seizure, such as lack of sleep, alcohol or drug use, stress, or not eating. If possible, take a shower instead of a bath. Having a seizure while in a bath can increase the risk of drowning. Discharge Disposition: HOME SELF-CARE
[2022-09-19 16:16] VITALS: BP 112/73; PULSE 72; TEMP 98.4
[2022-09-19] MEDS ORDERED: LACOSAMIDE 50 MG TABLET PO SCH (21:00)
== END 2022-09-19 16:27 | disposition home or self-care (01) | DRG 69 ==
LOC: EC 21:00 → 3SCARD 09-17 02:07 → OBSVTOIN 09-18 11:33
PROVIDERS: ADMIT Internal Medicine; ATTEND Internal Medicine
PROC: 05HD33Z Insertion of Infusion Device into Right Cephalic Vein, Percutaneous Approach (ICD-10-PCS; principal; 2022-09-17 15:00)
PROC: 4A10X4Z Monitoring of Central Nervous Electrical Activity, External Approach (ICD-10-PCS; 2022-09-18)
DX: G45.9 Transient cerebral ischemic attack, unspecified (principal); I69.354 Hemiplegia and hemiparesis following cerebral infarction affecting left non-dominant side; R00.0 Tachycardia, unspecified; I69.320 Aphasia following cerebral infarction; I69.349 Monoplegia of lower limb following cerebral infarction affecting unspecified side; I10 Essential (primary) hypertension; K21.9 Gastro-esophageal reflux disease without esophagitis; E78.5 Hyperlipidemia, unspecified; F31.9 Bipolar disorder, unspecified; D64.9 Anemia, unspecified; G43.909 Migraine, unspecified, not intractable, without status migrainosus; F41.0 Panic disorder [episodic paroxysmal anxiety]; G93.89 Other specified disorders of brain; M79.7 Fibromyalgia; Z79.02 Long term (current) use of antithrombotics/antiplatelets; Z79.82 Long term (current) use of aspirin; Z79.899 Other long term (current) drug therapy; Z86.16 Personal history of COVID-19; Z86.718 Personal history of other venous thrombosis and embolism; Z87.74 Personal history of (corrected) congenital malformations of heart and circulatory system; Z98.84 Bariatric surgery status; Z90.49 Acquired absence of other specified parts of digestive tract; Z88.2 Allergy status to sulfonamides; Z88.8 Allergy status to other drugs, medicaments and biological substances; Z88.6 Allergy status to analgesic agent
CPT/HCPCS: 36410; 36415; 70450; 70496; 70498; 70551; 71046; 76937; 78582; 80053; 80061; 82607; 82746; 82947; 83036; 83605; 83735; 84100; 84146; 84484; 85025; 85379; 85610; 85730; 93005; 93308; 95819; 96372; 99285

== ENCOUNTER → 2024-03-26 | Outpatient (CLI) | payer MEDICARE, OTHER ==
--- NOTE | 2024-03-27 04:41 | CT ---
EXAMINATION TYPE: CT abdomen pelvis wo con CT DLP: 1109 mGycm, Automated exposure control for dose reduction was used. DATE OF EXAM: 03/26/2024 9:55 AM COMPARISON: CT abdomen pelvis most recent from 09/10/2019, transvaginal ultrasound 09/22/2019. CLINICAL INDICATION:Female, 48 years old with history of N20.0 CALCULUS OF KIDNEY; Hx renal stones, t rouble with urination TECHNIQUE: Standard CT of the abdomen and pelvis without IV or oral contrast. Lack of IV or oral co ntrast limits evaluation of solid and hollow organ viscera. Coronal and sagittal reformats were perfo rmed. FINDINGS: LOWER CHEST: No acute process. Elevation of the right hemidiaphragm. Atrial septal closure device not ed. ABDOMEN LIVER: No focal lesion within limits of noncontrast exam. Few surgical clips demonstrated along the m argin of the anterior superior aspect of the right hepatic lobe. GALLBLADDER AND BILE DUCTS: Gallbladder surgically absent. No biliary ductal dilatation. PANCREAS: Unremarkable. SPLEEN: Unremarkable. ADRENAL GLANDS: Unremarkable. KIDNEYS AND URETERS: No evidence of hydronephrosis or renal calculus. The ureters are unremarkable. PELVIS BLADDER: Incompletely distended but grossly unremarkable. REPRODUCTIVE: Left ovarian 2.9 cm likely follicular cyst. Cervical nabothian cysts redemonstrated cor responding to prior ultrasound. ABDOMEN & PELVIS STOMACH AND BOWEL: Ivana-en-Y post surgical changes. Distal colonic diverticulosis without evidence fo r acute diverticulitis. Mild colonic stool burden. The appendix is within normal limits. No evidence of bowel obstruction. PERITONEUM: No evidence of pneumoperitoneum or free fluid. VASCULATURE: No evidence of aortic aneurysm. Pelvic phleboliths noted. MUSCULOSKELETAL: No acute osseous abnormalities LYMPH NODES: No gross evidence for lymphadenopathy. SOFT TISSUE/ABDOMINAL WALL: Small fat filled umbilical hernia. IMPRESSION: 1. No evidence for nephrolithiasis or hydronephrosis. No evidence for obstructive uropathy. 2. Colonic diverticulosis without evidence for acute diverticulitis.
== END | disposition home or self-care (01) ==
LOC: RADCTMAIN 09:24
PROVIDERS: ATTEND Urology
DX: K57.30 Diverticulosis of large intestine without perforation or abscess without bleeding (principal); N20.0 Calculus of kidney
CPT/HCPCS: 74176

== ENCOUNTER 2024-12-07 07:09 | Day surgery (SDC) | payer MEDICARE, OTHER ==
[2024-12-02 08:38] VITALS: BMI 32.4
[2024-12-07] MEDS: IV FLUID CONTINUATION 1,000 ML IV ONE (07:25)
[2024-12-07 07:45] VITALS: TEMP 97.7
[2024-12-07] MEDS: LACTATED RINGERS 1,000 ML IV SCH (07:55)
[2024-12-07] MEDS ORDERED: LIDOCAINE 2% (PF) 20 MG/ML 5 ML VIAL ONE (08:32)
[2024-12-07] MEDS ORDERED: PROPOFOL 10 MG/ML 20 ML VIAL IV ONE (08:32)
--- NOTE | 2024-12-07 08:36 | P.GSHP ---
History of Present Illness H&P Date: 12/07/24 Chief Complaint: Dysphagia, anemia, change in bowel habits 49-year-old female here for upper and lower endoscopy. Patient with history of esophageal stricture in the past. Patient with history of previous Ivana-en-Y bypass. Patient also with anemia and recent change in bowel habits. No rectal bleeding. No melena. Previous Ivana-en-Y bypass many years ago. Last upper and lower endoscopy 3 years ago. 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 Difficulty walking at times-uses a wheelchair prn, speech and memory issues. Hx DVT right leg X3, hx DVT right upper arm X4, iron deficiency anemia. Hx Covid 09/30 and 10/02, Blood disorder-undiagnosed awaiting hematology consult. 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 Patient reports difficulty waking up after anesthesia one time. Type of Cardiac Device: Loop Device Placement Date:: Unknown, loop recorder not working-out patient therapist aware. Smoking Status: Never smoker - Past Family History Mother Family Medical History: Cancer, Deep Vein Thrombosis (DVT), Pulmonary Embolus Additional Family Medical History / Comment(s): Uterine cancer- hysterectomy Father Family Medical History: Cancer, CVA/TIA, Diabetes Mellitus Additional Family Medical History / Comment(s): Father had skin cancer, TIA X4 CVA x1. Paternal grandmother had brain aneurysm. Father's sister had leukemia. Medications and Allergies Home Medications Medication Instructions Recorded Confirmed Type DULoxetine HCL [Cymbalta] 30 mg PO DAILY 09/10/19 12/07/24 History Sucralfate [Carafate] 1 gm PO Q12HR PRN 09/10/19 12/07/24 History Atorvastatin [Lipitor] 40 mg PO HS 10/09/21 12/07/24 History busPIRone HCl [Buspar] 10 mg PO DAILY 10/09/21 12/07/24 History hydrOXYzine HCL [Atarax] 25 mg PO HS 10/09/21 12/07/24 History traZODone HCL 150 mg PO HS 10/09/21 12/07/24 History Metoprolol Tartrate [Lopressor] 25 mg PO DAILY 06/21/22 12/07/24 History Omeprazole 20 mg PO DAILY PRN 06/21/22 12/07/24 History Valsartan 40 mg PO DAILY 06/21/22 12/07/24 History Acetaminophen Tab [Tylenol] 1,000 mg PO Q12H PRN 09/17/22 12/07/24 History QUEtiapine [SEROquel] 200 mg PO HS 09/17/22 12/07/24 History Aspirin 81 mg PO DAILY #30 tab 09/19/22 12/07/24 Rx Cyanocobalamin [Vitamin B-12] 1,000 mcg PO DAILY #30 tab 09/19/22 12/07/24 Rx Ferrous Gluconate 324 mg PO Q48H 12/01/24 12/07/24 History Lacosamide 100 mg PO BID 12/01/24 12/07/24 History Lacosamide [Vimpat] 50 mg PO DAILY 12/01/24 12/07/24 History Lactobacillus Acidophilus 2 dose PO QAM 12/01/24 12/07/24 History [Acidophilus] Loperamide [Imodium] 1 dose PO DAILY PRN 12/01/24 12/07/24 History Multivit-Min/FA/Lycopen/Lutein 1 each PO DAILY 12/01/24 12/07/24 History [Centrum Silver Tablet] Nemolizumab-Ilto [Nemluvio] 30 mg SQ QMONTHLY 12/01/24 12/07/24 History OXcarbazepine 300 mg PO BID 12/01/24 12/07/24 History Estro Support 1 dose PO DAILY 12/02/24 12/07/24 History Allergies Allergy/AdvReac Type Severity Reaction Status Date / Time Sulfa (Sulfonamide Allergy Severe Rash/Hives Verified 12/07/24 07:35 Antibiotics) sulfamethoxazole Allergy Severe Rash/Hives Verified 12/07/24 07:35 [From Bactrim] trimethoprim [From Bactrim] Allergy Severe Rash/Hives Verified 12/07/24 07:35 gabapentin Allergy Intermediate Swelling Verified 12/07/24 07:35 ticagrelor [From Brilinta] AdvReac Intermediate Flu-like Verified 12/07/24 07:35 symptoms NSAIDS (Non-Steroidal AdvReac Mild upset Verified 12/07/24 07:35 Anti-Inflamma stomach Surgical - Exam Vital Signs Temp Pulse Resp BP Pulse Ox 97.7 F 61 16 107/59 97 12/07/24 07:43 12/07/24 07:43 12/07/24 07:43 12/07/24 07:43 12/07/24 07:43 Physical exam: General: Well-developed, well-nourished HEENT: Normocephalic, sclerae nonicteric Abdomen: Nontender, nondistended Extremities: No edema Neuro: Alert and oriented Assessment and Plan (1) Dysphagia Narrative/Plan: Will proceed with upper and lower endoscopy at this time. Current Visit: Yes Status: Acute Code(s): R13.10 - DYSPHAGIA, UNSPECIFIED SNOMED Code(s): 09279453
--- NOTE | 2024-12-07 09:10 | P.PCN ---
Date of Procedure: 12/07/24 Procedure(s) Performed: PREOPERATIVE DIAGNOSIS: Anemia, change in bowel habits, dysphagia POSTOPERATIVE DIAGNOSIS: Normal upper endoscopy, diverticulosis PROCEDURE: 1. EGD 2. Colonoscopy ANESTHESIA: MAC SURGEON: Jez Young M.D. SPECIMENS: None ENDOSCOPIC PROCEDURE: The patient was on the endoscopy table in the left decubitus position. The Olympus gastroscope was inserted into the oropharynx and passed under direct visualization to the proximal jejunum. The patient's gastrojejunostomy was widely patent. There was no inflammatory changes or ulcer. There was no narrowing of the anastomotic site. The gastric pouch appeared normal without inflammation. The patient's GE junction and remainder of her esophagus likewise appeared normal without evidence of stricture formation. The patient was kept on the endoscopy table in the left decubitus position. The Olympus colonoscope was inserted into the anus and passed under direct visualization to the base of the cecum. The appendiceal orifice was visualized. From that point the scope was slowly withdrawn inspecting all surfaces car efully. There were no neoplastic inflammatory or polypoid lesions throughout the cecum, ascending, transverse, descending, sigmoid and rectum. There was mild left-sided diverticulosis noted. Digital rectal examination was normal. The patient was taken to the recovery room in stable condition per anesthesia guidelines. RECOMMENDATIONS: Resume diet. Repeat colonoscopy 10 years.
[2024-12-07 09:34] VITALS: BP 106/59; PULSE 65; RESP 18
== END 2024-12-07 09:50 | disposition home or self-care (01) ==
LOC: ORWHC2ENDO 07:09
PROVIDERS: ATTEND Surgery
DX: D50.9 Iron deficiency anemia, unspecified (principal); K57.30 Diverticulosis of large intestine without perforation or abscess without bleeding; R13.10 Dysphagia, unspecified; M79.7 Fibromyalgia; G40.909 Epilepsy, unspecified, not intractable, without status epilepticus; G43.909 Migraine, unspecified, not intractable, without status migrainosus; F31.9 Bipolar disorder, unspecified; F41.9 Anxiety disorder, unspecified; L29.89 Other pruritus; F12.90 Cannabis use, unspecified, uncomplicated; Z87.19 Personal history of other diseases of the digestive system; Z93.4 Other artificial openings of gastrointestinal tract status; Z98.84 Bariatric surgery status; Z86.73 Personal history of transient ischemic attack (TIA), and cerebral infarction without residual deficits; Z86.718 Personal history of other venous thrombosis and embolism; Z86.16 Personal history of COVID-19; Z90.49 Acquired absence of other specified parts of digestive tract; Z79.899 Other long term (current) drug therapy; Z88.2 Allergy status to sulfonamides; Z88.8 Allergy status to other drugs, medicaments and biological substances; Z88.6 Allergy status to analgesic agent; Z88.1 Allergy status to other antibiotic agents
CPT/HCPCS: 81025; 45378; 43235; J2704; J2003

== ENCOUNTER → 2025-01-10 | Outpatient (CLI) | payer MEDICARE, OTHER ==
--- NOTE | 2025-01-10 11:34 | CT ---
EXAMINATION TYPE: CT abdomen pelvis w con CT DLP: 1716.2 mGycm, Automated exposure control for dose reduction was used. DATE OF EXAM: 01/10/2025 11:03 AM COMPARISON: CT abdomen pelvis 03/26/2024, 09/10/2019 CLINICAL INDICATION:Female, 49 years old with history of R10.31 RLQ PAIN; PELVIC PAIN TECHNIQUE: Standard CT of the abdomen and pelvis following the administration of 100 cc of Isovue 3 00 IV contrast material and oral contrast. Coronal and sagittal reformats were performed. FINDINGS: LOWER CHEST: The visualized lungs are clear. Atrial septal occlusion device demonstrated. ABDOMEN LIVER: Unremarkable GALLBLADDER AND BILE DUCTS: The gallbladder is surgically absent. No biliary ductal dilatation. PANCREAS: Unremarkable. SPLEEN: Unremarkable. ADRENAL GLANDS: Unremarkable. KIDNEYS AND URETERS: No evidence of hydronephrosis or renal calculus. The kidneys enhance symmetrical ly. Contrast is demonstrated within both collecting systems on the delayed phase. Left renal cortical 1.2 cm cyst. PELVIS BLADDER: Under distended, limiting evaluation. REPRODUCTIVE: Unremarkable anteverted uterus with mildly enlarged left ovarian cystic lesion measurin g up to 4.4 cm, previously measuring up to 2.9 cm. ABDOMEN & PELVIS STOMACH AND BOWEL: There are changes from Ivana-en-Y gastric bypass. Enteric contrast reaches the asce nding colon. No focal bowel wall thickening or surrounding inflammatory changes. A few scattered dist al colonic diverticula without evidence for acute diverticulitis.Jejunojejunal short segment intussus ception measuring approximately 1.8 cm in length (series 8, image 45). Moderate amount of stool is pr esent within the colon. The appendix is within normal limits. No evidence of bowel obstruction. PERITONEUM: No evidence of pneumoperitoneum or free fluid. VASCULATURE: No evidence of aortic aneurysm. Couple pelvic phleboliths. MUSCULOSKELETAL: No acute osseous abnormalities. Degenerative disc disease at L5-S1. LYMPH NODES: No evidence for lymphadenopathy. SOFT TISSUE/ABDOMINAL WALL: Tiny umbilical hernia containing fat. IMPRESSION: 1. Increased size of left ovarian cystic lesion measuring up to 4.4 cm. Further evaluation with pelv ic ultrasound is recommended. 2. Colonic diverticulosis without evidence for acute diverticulitis. 3. Short segment jejunal jejunal intussusception which is typically transient. [facility], , 01/10/2025 11:32 AM
[2025-01-10 16:34] LABS: BUN/Creat Ratio 12.33 Ratio (12.00-20.00); Blood Urea Nitrogen 11.1 mg/dL (9.0-27.0); Calcium 9.3 mg/dL (8.7-10.3); Carbon Dioxide 26.8 mmol/L (21.6-31.8); Chloride 100 mmol/L (96-109); Glucose 85 mg/dL (70-110); Potassium 4.4 mmol/L (3.5-5.5); Sodium 137 mmol/L (135-145)
== END | disposition home or self-care (01) ==
LOC: RADCTMAIN 08:59
PROVIDERS: ATTEND Family Medicine
DX: R10.31 Right lower quadrant pain (principal); N83.202 Unspecified ovarian cyst, left side; K57.30 Diverticulosis of large intestine without perforation or abscess without bleeding; K56.1 Intussusception
CPT/HCPCS: 80048; 74177; 36415; Q9967

== ENCOUNTER → 2025-01-31 | Outpatient (CLI) | payer MEDICARE, OTHER ==
--- NOTE | 2025-02-01 13:40 | MR ---
EXAMINATION TYPE: MR brain wo/w con DATE OF EXAM: 01/31/2025 3:01 PM COMPARISON: 09/18/2022.. CLINICAL INDICATION: Female, 49 years old with history of G40.909 Seizure G51.32 Hemifacial spasm of L face; PHH, Seizures, Left side weakness, Hx strokes, Hearing loss bilat. TECHNIQUE: Multi planar, multi sequence imaging was performed through the brain including: T1, T2, In version recovery, susceptibility weighted imaging and gradient echo imaging and Diffusion weighted im aging. The patient was then given intravenous contrast and multi planar, T1 fat-saturation images wer e obtained. IV Contrast: 9 mL Gadobutrol FINDINGS: Remote injury to the right temporal and parietal lobes with white matter changes and some e ncephalomalacia. There is no abnormal postcontrast enhancement in this region. The restrepo-white junctions, ventricular system, basal cisterns appear unremarkable. Diffusion-weighted imaging shows no evidence of restricted diffusion to suggest acute/subacute infarct. Intracranial ar terial flow voids are maintained. Midline structures show no abnormality. The susceptibility weighted images do not reveal any evidence for micro-hemorrhage. After administration of gadolinium, no abnor mal enhancement is seen. The bone marrow signal is within normal limits. Paranasal sinuses and mastoid air cells: No significant paranasal sinus disease. Visualized orbits: Orbital contents are intact. IMPRESSION: Similar area of suspected prior injury/CVA in the right temporal/parietal region with encephalomalaci a. No abnormal postcontrast enhancement. No evidence of intracranial mass, acute/subacute infarct, or abnormal enhancement. [facility], , 02/01/2025 1:37 PM
== END | disposition home or self-care (01) ==
LOC: RADMRIMAIN 13:39
PROVIDERS: ATTEND Psychiatry & Neurology Neurology
DX: G40.909 Epilepsy, unspecified, not intractable, without status epilepticus (principal); G51.32 Clonic hemifacial spasm, left; R42 Dizziness and giddiness; Z86.73 Personal history of transient ischemic attack (TIA), and cerebral infarction without residual deficits
CPT/HCPCS: 70553; A9585

== ENCOUNTER → 2025-04-18 | Outpatient (CLI) | payer MEDICARE, OTHER ==
--- NOTE | 2025-04-18 16:01 | US ---
EXAMINATION TYPE: US carotid duplex BILAT DATE OF EXAM: 04/18/2025 COMPARISON: NONE CLINICAL INDICATION: Female, 49 years old with history of Z86.73 HISTORY OF STROKE; Left sided numbne ss. Dizziness. History of stroke Additional History: R42* Dizziness TECHNIQUE: Grayscale, color Doppler and spectral Doppler evaluation of the bilateral carotid systems and vertebral arteries. Indirect Doppler criteria was utilized. FINDINGS: EXAM MEASUREMENTS: RIGHT: Peak Systolic Velocity (PSV) cm/sec ----- Right CCA: 96.8 ----- Right ICA: 81.9 ----- Right ECA: 141 ICA/CCA ratio: 0.85 RIGHT: End Diastole cm/sec ----- Right CCA: 24.0 ----- Right ICA: 22.1 ----- Right ECA: 21.2 LEFT: Peak Systolic Velocity (PSV) cm/sec ----- Left CCA: 109 ----- Left ICA: 114 ----- Left ECA: 99.6 ICA/CCA ratio: 1.05 LEFT: End Diastole cm/sec ----- Left CCA: 27.8 ----- Left ICA: 33.7 ----- Left ECA: 12.5 VERTEBRALS (direction of flow): Right Vertebral: Antegrade Left Vertebral: Antegrade Rhythm: Normal LICENSED FUNERAL DIRECTOR NOTES: 1. Mild plaque bilateral bifurcations. No evidence of significant stenosis Color Doppler imaging shows patency with blood flow throughout the carotid artery. Spectral waveforms are within normal limits. IMPRESSION: Number mild atheromatous plaquing without significant flow-limiting stenosis based on edilson ocities. Criteria for Assigning % of Stenosis / Diameter reduction (Estimation based on the indirect measurements of the internal carotid artery velocities (ICA PSV). 1. Normal (no stenosis)=ICA PSV < 180 cm/s: ratio < 2.0: ICA EDV<40 cm/s. 2. Less than 50% stenosis=ICA PSV < 180 cm/s: ratio < 2.0: ICA EDV<40 cm/s. 3. 50 to 69% stenosis=ICA PSV of 180 to 230 cm/s: ration 2.0 ? 4.0: ICA EDV 40-100 cm/s. PSV 125-180 cm/sec and ICA/CCA PSV Ratio ? 2.0 is also consistent with 50-69% stenosis 4. Greater than 70% stenosis to near occlusion= ICA PSV > 230 cm/s: ratio > 4.0: ICA EDV > 100 cm/s. 5. Near occlusion= ICA PSV velocities may be low or undetectable: variable ratio and ICA EDV. 6. Total occlusion=unable to detect flow. [facility], , 04/18/2025 3:59 PM
== END | disposition home or self-care (01) ==
LOC: RADUSWWP 15:08
PROVIDERS: ATTEND Psychiatry & Neurology Neurology
DX: I65.23 Occlusion and stenosis of bilateral carotid arteries (principal); Z86.73 Personal history of transient ischemic attack (TIA), and cerebral infarction without residual deficits
CPT/HCPCS: 93880

== ENCOUNTER 2025-04-19 16:05 | Emergency (ER) | payer MEDICARE, OTHER ==
[2025-04-19 16:18] VITALS: TEMP 98.4
--- NOTE | 2025-04-19 17:11 | ED ---
Abdominal Pain HPI - General Source: patient, RN notes reviewed Mode of arrival: ambulatory Limitations: no limitations <Aleshia Portillo - Last Filed: 04/19/25 17:11> - General Source: patient, RN notes reviewed, old records reviewed Mode of arrival: ambulatory Limitations: no limitations - History of Present Illness MD Complaint: abdominal pain -: days(s) Location: LLQ, RLQ, suprapubic Radiation: L flank, R flank Severity: severe Severity scale (1-10): 8 Quality: stabbing Consistency: intermittent Improves With: nothing Worsens With: nothing Associated Symptoms: nausea Treatments Prior to Arrival: other <[employer] - Last Filed: 04/26/25 18:28> - General Chief Complaint: Abdominal Pain Stated Complaint: R sided abd pain Time Seen by Provider: 04/19/25 17:11 - History of Present Illness Initial Comments: Quick note: 49-year-old female presented to ER for evaluation of right-sided abdominal pain. She states has been ongoing for the past 6 months worse in the past 3 days. She states it feels like a knife is stabbing her in her right side. History of cholecystectomy. Patient admits to nausea vomiting diarrhea. (Aleshia Portillo) This is a 49-year-old female to the ER for evaluation of right-sided abdominal pain. Patient also had what she believes was a seizure prior to arrival. Seizure here in the ER. Abdominal pain for 6 months worse last few days severe knifelike pain in her right side. History of gallbladder surgery with nausea vomiting diarrhea no fevers ([employer]) - Related Data Home Medications Medication Instructions Recorded Confirmed DULoxetine HCL [Cymbalta] 30 mg PO DAILY 09/10/19 12/07/24 Sucralfate [Carafate] 1 gm PO Q12HR PRN 09/10/19 12/07/24 Atorvastatin [Lipitor] 40 mg PO HS 10/09/21 12/07/24 busPIRone HCl [Buspar] 10 mg PO DAILY 10/09/21 12/07/24 hydrOXYzine HCL [Atarax] 25 mg PO HS 10/09/21 12/07/24 traZODone HCL 150 mg PO HS 10/09/21 12/07/24 Metoprolol Tartrate [Lopressor] 25 mg PO DAILY 06/21/22 12/07/24 Omeprazole 20 mg PO DAILY PRN 06/21/22 12/07/24 Valsartan 40 mg PO DAILY 06/21/22 12/07/24 Acetaminophen Tab [Tylenol] 1,000 mg PO Q12H PRN 09/17/22 12/07/24 QUEtiapine [SEROquel] 200 mg PO HS 09/17/22 12/07/24 Ferrous Gluconate 324 mg PO Q48H 12/01/24 12/07/24 Lacosamide 100 mg PO BID 12/01/24 12/07/24 Lacosamide [Vimpat] 50 mg PO DAILY 12/01/24 12/07/24 Lactobacillus Acidophilus 2 dose PO QAM 12/01/24 12/07/24 [Acidophilus] Loperamide [Imodium] 1 dose PO DAILY PRN 12/01/24 12/07/24 Multivit-Min/FA/Lycopen/Lutein 1 each PO DAILY 12/01/24 12/07/24 [Centrum Silver Tablet] Nemolizumab-Ilto [Nemluvio] 30 mg SQ QMONTHLY 12/01/24 12/07/24 OXcarbazepine 300 mg PO BID 12/01/24 12/07/24 Estro Support 1 dose PO DAILY 12/02/24 12/07/24 Previous Rx's Medication Instructions Recorded Aspirin 81 mg PO DAILY #30 tab 09/19/22 Cyanocobalamin [Vitamin B-12] 1,000 mcg PO DAILY #30 tab 09/19/22 Allergies Allergy/AdvReac Type Severity Reaction Status Date / Time Sulfa (Sulfonamide Allergy Severe Rash/Hives Verified 04/19/25 16:18 Antibiotics) sulfamethoxazole Allergy Severe Rash/Hives Verified 04/19/25 16:18 [From Bactrim] trimethoprim [From Bactrim] Allergy Severe Rash/Hives Verified 04/19/25 16:18 gabapentin Allergy Intermediate Swelling Verified 04/19/25 16:18 ticagrelor [From Brilinta] AdvReac Intermediate Flu-like Verified 04/19/25 16:18 symptoms NSAIDS (Non-Steroidal AdvReac Mild upset Verified 04/19/25 16:18 Anti-Inflamma stomach Review of Systems ROS Other: All systems not noted in ROS Statement are negative. <Aleshia Portillo - Last Filed: 04/19/25 17:11> ROS Other: All systems not noted in ROS Statement are negative. <[employer] - Last Filed: 04/26/25 18:28> ROS Statement: Those systems with pertinent positive or pertinent negative responses have been documented in the HPI. 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 Difficulty walking at times-uses a wheelchair prn, speech and memory issues. Hx DVT right leg X3, hx DVT right upper arm X4, iron deficiency anemia. Hx Covid 09/30 and 10/02, Blood disorder-undiagnosed awaiting hematology consult. 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 Patient reports difficulty waking up after anesthesia one time. Type of Cardiac Device: Loop Device Placement Date:: Unknown, loop recorder not working-service delivery manager aware. Past Psychological History: Anxiety, Bipolar, Depression Smoking Status: Never smoker - Past Family History Mother Family Medical History: Cancer, Deep Vein Thrombosis (DVT), Pulmonary Embolus Additional Family Medical History / Comment(s): Uterine cancer- hysterectomy Father Family Medical History: Cancer, CVA/TIA, Diabetes Mellitus Additional Family Medical History / Comment(s): Father had skin cancer, TIA X4 CVA x1. Paternal grandmother had brain aneurysm. Father's sister had leukemia. <Aleshia Portillo - Last Filed: 04/19/25 17:11> General Exam Limitations: no limitations <Aleshia Portillo - Last Filed: 04/19/25 17:11> General appearance: alert, in no apparent distress Head exam: Present: atraumatic, normocephalic, normal inspection Eye exam: Present: normal appearance, PERRL, EOMI. Absent: scleral icterus, conjunctival injection, periorbital swelling ENT exam: Present: normal exam, mucous membranes moist Neck exam: Present: normal inspection. Absent: tenderness, meningismus, lymphadenopathy Respiratory exam: Present: normal lung sounds bilaterally. Absent: respiratory distress, wheezes, rales, rhonchi, stridor Cardiovascular Exam: Present: regular rate, normal rhythm, normal heart sounds. Absent: systolic murmur, diastolic murmur, rubs, gallop, clicks GI/Abdominal exam: Present: soft, normal bowel sounds. Absent: distended, tenderness, guarding, rebound, rigid Extremities exam: Present: normal inspection, full ROM, normal capillary refill. Absent: tenderness, pedal edema, joint swelling, calf tenderness Back exam: Present: normal inspection Neurological exam: Present: alert, oriented X3, CN II-XII intact Psychiatric exam: Present: normal affect, normal mood Skin exam: Present: warm, dry, intact, normal color. Absent: rash <[employer] - Last Filed: 04/26/25 18:28> - General Exam Comments Initial Comments: Visual Physical Exam Vital signs reviewed General: Well-appearing, nontoxic, no acute distress. Head: Normocephalic, atraumatic Eyes: PERRLA, EOMI ENT: Airway patent Chest: Nonlabored breathing Skin: No visual rash, normal skin tone Neuro: Alert and oriented 3 Musculoskeletal: No gross abnormalities (Aleshia Portillo) Course <[employer] - Last Filed: 04/26/25 18:28> Vital Signs 04/19/25 04/19/25 04/19/25 16:14 18:13 18:37 Temperature 98.4 F Pulse Rate 69 96 73 Respiratory 16 20 20 Rate Blood Pressure 142/79 158/83 O2 Sat by Pulse 96 98 99 Oximetry 04/19/25 04/19/25 19:40 20:59 Temperature Pulse Rate 67 63 Respiratory 18 18 Rate Blood Pressure 127/78 123/75 O2 Sat by Pulse 99 99 Oximetry - Reevaluation(s) Reevaluation #1: Medical records reviewed ([employer]) Reevaluation #2: Patient's symptoms improved ([employer]) Reevaluation #3: Patient informed of results questions answered ([employer]) Reevaluation #4: Was pt. sent in by a medical professional or institution (MIHAI Duncan, INDUSTRIAL SPRAYPAINTER, urgent care, hospital, or care home...) When possible be specific @ -no Did you speak to anyone other than the patient for history (EMS, parent, family, police, friend...)? What history was obtained from this source @ -no Did you review nursing and triage notes (agree or disagree)? Why? @ -agree Are old charts reviewed (outside hosp., previous admission, EMS record, old EKG, old radiological studies, urgent care reports/EKG's, care home records)? Report findings @ -yes Differential Diagnosis (chest pain, altered mental status, abdominal pain women, abdominal pain men, vaginal bleeding, weakness, fever, dyspnea, syncope, headache, dizziness, GI bleed, back pain, seizure, CVA, palpatations, mental health, musculoskeletal)? @ -prior EKG interpreted by me (3pts min.). @ -yes X-rays interpreted by me (1pt min.). @ -no CT interpreted by me (1pt min.). @ -yes negative for acute disease U/S interpreted by me (1pt. min.). @ -no What testing was considered but not performed or refused? (CT, X-rays, U/S, labs)? Why? @ -none What meds were considered but not given or refused? Why? @ -none Did you discuss the management of the patient with other professionals (professionals i.e. MIHAI Duncan, INDUSTRIAL SPRAYPAINTER, lab, RT, psych nurse, social insurance analyst, automotive accessory installer, teacher, special service officer, case assembler)? Give summary @ -no Was smoking cessation discussed for >3mins.? @ -no Was critical care preformed (if so, how long)? @ -no Were there social determinants of health that impacted care today? How? (Homelessness, low income, unemployed, alcoholism, drug addiction, transportation, low edu. Level, literacy, decrease access to med. care, longterm, rehab)? @ -none Was there de-escalation of care discussed even if they declined (Discuss DNR or withdrawal of care, Hospice)? DNR status @ -no What co-morbidities impacted this encounter? (DM, HTN, Smoking, COPD, CAD, Cancer, CVA, ARF, Chemo, Hep., AIDS, mental health diagnosis, sleep apnea, morbid obesity)? @ -none Was patient admitted / discharged? Hospital course, mention meds given and route, prescriptions, significant lab abnormalities, going to OR and other pertinent info. @ - 49 female being evaluated for recurrent seizures. Patient also noted to have severe abdominal pain here in the ER. CT scanning negative no recurrent seizure here in the ER patient feels well can be discharged home Discharge Undiagnosed new problem with uncertain prognosis? @ -no Drug Therapy requiring intensive monitoring for toxicity (Heparin, Nitro, Insulin, Cardizem)? @ -no Were any procedures done? @ -no Diagnosis/symptom? @ -Recurrent seizures abdominal pain Acute, or Chronic, or Acute on Chronic? @ -Acute Uncomplicated (without systemic symptoms) or Complicated (systemic symptoms)? @ -Complicated Side effects of treatment? @ -no Exacerbation, Progression, or Severe Exacerbation? @ -exacerbation Poses a threat to life or bodily function? How? (Chest pain, [place], [place], pneumonia, PE, COPD, DKA, ARF, appy, cholecystitis, CVA, Diverticulitis, Homicidal, Suicidal, threat to staff... and all critical care pts) @ -no ([employer]) Reevaluation #5: Differential Abdominal Pain Women: Appendicitis, Cholecystitis, diverticulosis, ischemic bowel, pancreatitis, hepatitis, UTI, gastroenteritis, AAA, incarcerated hernia, bowel obstruction, constipation, inflammatory bowel, hepatitis, peptic ulcer disease, splenic infarction, perforated viscus, vulvitis, ovarian torsion, PID, kidney stone, placenta abruption, this is not meant to be an all-inclusive list ([employer]) Medical Decision Making <Aleshia Portillo - Last Filed: 04/19/25 17:11> - Lab Data Result diagrams: 04/19/25 18:13 06/10/25 18:13 - EKG Data -: EKG Interpreted by Me (EKG is sinus 72 WA 174 QRS 89 QTc 401) - Radiology Data Radiology results: report reviewed (CT abdomen pelvis negative for acute disease), image reviewed <[employer] - Last Filed: 04/26/25 18:28> - Medical Decision Making I performed the quick note portion of this chart. Electronically signed by Aleshia Portillo PA-C (Aleshia Portillo) 49 female being evaluated for recurrent seizures. Patient also noted to have severe abdominal pain here in the ER. CT scanning negative no recurrent seizure here in the ER patient feels well can be discharged home ([employer]) - Lab Data Lab Results 04/19/25 04/19/25 04/19/25 Range/Units 16:57 18:13 18:13 WBC 10.10 H (4.50-10.00) 10*3/uL RBC 4.39 (4.10-5.20) 10*6/uL Hgb 14.3 (12.0-15.0) g/dL Hct 41.1 (37.2-46.3) % MCV 93.6 (80.0-97.0) fL MCH 32.6 H (27.0-32.0) pg MCHC 34.8 (32.0-37.0) g/dL Plt Count 280 (140-440) 10*3/uL MPV 8.8 L (9.5-12.2) fL Immature Gran % (Auto) 0.2 % Neutrophils % 43.2 % Lymphocytes % 45.2 % Monocytes % 7.4 % Eosinophils % 3.3 % Basophils % 0.7 % Immature Gran # 0.02 (0.00-0.04) 10*3/uL Neutrophils # 4.36 (1.80-7.70) 10*3/uL Lymphocytes # 4.57 (0.90-5.00) 10*3/uL Monocytes # 0.75 (0.20-1.00) 10*3/uL Eosinophils # 0.33 (0.04-0.35) 10*3/uL Basophils # 0.07 (0.00-0.10) 10*3/uL Sodium 136 L (137-145) mmol/L Potassium 4.7 (3.5-5.1) mmol/L Chloride 104 (98-107) mmol/L Carbon Dioxide 22 (22-30) mmol/L Anion Gap 10 mmol/L BUN 13 (7-17) mg/dL Creatinine 0.95 (0.52-1.04) mg/dL Est GFR (CKD-EPI)AfAm 82 (>60 ml/min/1.73 sqM) Est GFR (CKD-EPI)NonAf 71 (>60 ml/min/1.73 sqM) Glucose 102 H (74-99) mg/dL Lactic Ac Sepsis Rflx Plasma Lactic Acid Jae (0.7-2.0) mmol/L Calcium 9.5 (8.4-10.2) mg/dL Total Bilirubin 0.6 (0.2-1.3) mg/dL AST 57 H (14-36) U/L ALT 60 H (4-34) U/L Alkaline Phosphatase 134 H (38-126) U/L Total Protein 7.0 (6.3-8.2) g/dL Albumin 4.6 (3.5-5.0) g/dL Amylase 65 (30-110) U/L Lipase 113 (23-300) U/L Urine Color Yellow Urine Appearance Clear (Clear) Urine pH 6.5 (5.0-8.0) Ur Specific Unity 1.021 (1.001-1.035) Urine Protein Negative (Negative) Urine Glucose (UA) Negative (Negative) Urine Ketones Negative (Negative) Urine Blood Negative (Negative) Urine Nitrite Negative (Negative) Urine Bilirubin Negative (Negative) Urine Urobilinogen 2.0 (<2.0) mg/dL Ur Leukocyte Esterase Moderate H (Negative) Urine RBC 1 (0-5) /hpf Urine WBC 7 H (0-5) /hpf Ur Squamous Epith Cells 2 (0-4) /hpf Urine Mucus Rare H (None) /hpf 04/19/25 04/19/25 Range/Units 18:13 18:44 WBC (4.50-10.00) 10*3/uL RBC (4.10-5.20) 10*6/uL Hgb (12.0-15.0) g/dL Hct (37.2-46.3) % MCV (80.0-97.0) fL MCH (27.0-32.0) pg MCHC (32.0-37.0) g/dL Plt Count (140-440) 10*3/uL MPV (9.5-12.2) fL Immature Gran % (Auto) % Neutrophils % % Lymphocytes % % Monocytes % % Eosinophils % % Basophils % % Immature Gran # (0.00-0.04) 10*3/uL Neutrophils # (1.80-7.70) 10*3/uL Lymphocytes # (0.90-5.00) 10*3/uL Monocytes # (0.20-1.00) 10*3/uL Eosinophils # (0.04-0.35) 10*3/uL Basophils # (0.00-0.10) 10*3/uL Sodium (137-145) mmol/L Potassium (3.5-5.1) mmol/L Chloride (98-107) mmol/L Carbon Dioxide (22-30) mmol/L Anion Gap mmol/L BUN (7-17) mg/dL Creatinine (0.52-1.04) mg/dL Est GFR (CKD-EPI)AfAm (>60 ml/min/1.73 sqM) Est GFR (CKD-EPI)NonAf (>60 ml/min/1.73 sqM) Glucose (74-99) mg/dL Lactic Ac Sepsis Rflx Y Plasma Lactic Acid Jae 2.5 H* (0.7-2.0) mmol/L Calcium (8.4-10.2) mg/dL Total Bilirubin (0.2-1.3) mg/dL AST (14-36) U/L ALT (4-34) U/L Alkaline Phosphatase (38-126) U/L Total Protein (6.3-8.2) g/dL Albumin (3.5-5.0) g/dL Amylase (30-110) U/L Lipase (23-300) U/L Urine Color Urine Appearance (Clear) Urine pH (5.0-8.0) Ur Specific Unity (1.001-1.035) Urine Protein (Negative) Urine Glucose (UA) (Negative) Urine Ketones (Negative) Urine Blood (Negative) Urine Nitrite (Negative) Urine Bilirubin (Negative) Urine Urobilinogen (<2.0) mg/dL Ur Leukocyte Esterase (Negative) Urine RBC (0-5) /hpf Urine WBC (0-5) /hpf Ur Squamous Epith Cells (0-4) /hpf Urine Mucus (None) /hpf Disposition <Aleshia Portillo - Last Filed: 04/19/25 17:11> Is patient prescribed a controlled substance at d/c from ED?: No Time of Disposition: 20:30 <[employer] - Last Filed: 04/26/25 18:28> Clinical Impression: Recurrent seizures, Abdominal pain Disposition: HOME SELF-CARE Condition: Fair Instructions (If sedation given, give patient instructions): Abdominal Pain (ED), New-Onset Seizure in Adults (ED) Referrals: Zachary Catalan MD [Primary Care Provider] - 1-2 days
[2025-04-19 17:36] LABS: Appearance,Urine Clear (Clear); Bilirubin,Urine Negative (Negative); Blood,Urine Negative (Negative); Color,Urine Yellow; Glucose,Urine (UA) Negative (Negative); Ketones,Urine Negative (Negative); Leukocyte Esterase,Urine Moderate (Negative); Mucus,Urine Rare /hpf; Nitrite,Urine Negative (Negative); PH, Urine 6.5 (5.0-8.0); Protein,Urine Negative (Negative); RBC,Urine 1 /hpf (0-5); Specific Gravity,Urine 1.021 (1.001-1.035); Squamous Epithelial Cell,Urine 2 /hpf (0-4); WBC,Urine 7 /hpf (0-5)
[2025-04-19] MEDS: LORazepam 1 MG/0.5 ML VIAL IV STA (18:10)
[2025-04-19 18:24] LABS: Basophils # (A) 0.07 10*3/uL (0.00-0.10); Basophils % (A) 0.7 %; Eosinophils # (A) 0.33 10*3/uL (0.04-0.35); Eosinophils % (A) 3.3 %; HCT 41.1 % (37.2-46.3); HGB 14.3 g/dL (12.0-15.0); Lymphocytes # (A) 4.57 10*3/uL (0.90-5.00); Lymphocytes % (A) 45.2 %; MCH 32.6 pg (27.0-32.0); MCHC 34.8 g/dL (32.0-37.0); MCV 93.6 fL (80.0-97.0); Mean Platelet Volume 8.8 fL (9.5-12.2); Monocytes # (A) 0.75 10*3/uL (0.20-1.00); Monocytes % (A) 7.4 %; Neutrophils # (A) 4.36 10*3/uL (1.80-7.70); Neutrophils % (A) 43.2 %; Platelet Count 280 10*3/uL (140-440); RBC 4.39 10*6/uL (4.10-5.20); RDW 11.6 % (11.5-14.5)
[2025-04-19] MEDS: PANTOPRAZOLE 40 MG/10 ML VIAL IVP STA (18:36)
[2025-04-19] MEDS: ONDANSETRON 4 MG/2 ML VIAL IVP STA (18:36)
[2025-04-19] MEDS: SODIUM CHLORIDE 0.9% 1,000 ML IV ONE (18:36)
[2025-04-19 18:39] LABS: ALT 60 U/L (4-34); African American GFR (CKD) 82 (>60 ml/min/1.73 sqM); Albumin 4.6 g/dL (3.5-5.0); Amylase 65 U/L (30-110); Anion Gap 10 mmol/L; Blood Urea Nitrogen 13 mg/dL (7-17); Calcium 9.5 mg/dL (8.4-10.2); Carbon Dioxide 22 mmol/L (22-30); Chloride 104 mmol/L (98-107); Glucose 102 mg/dL (74-99); Lipase 113 U/L (23-300); Non-African American GFR(CKD) 71 (>60 ml/min/1.73 sqM); Sodium 136 mmol/L (137-145); Total Bilirubin 0.6 mg/dL (0.2-1.3)
[2025-04-19 18:42] LABS: AST 57 U/L (14-36); Potassium 4.7 mmol/L (3.5-5.1)
[2025-04-19 18:43] LABS: Alkaline Phosphatase 134 U/L (38-126)
[2025-04-19 19:40] VITALS: RESP 18
--- NOTE | 2025-04-19 20:17 | CT ---
EXAMINATION TYPE: CT abdomen pelvis w con DATE OF EXAM: 04/19/2025 7:27 PM COMPARISON: None. CLINICAL INDICATION: Female, 49 years old with history of abdominal pain, right sided abdominal pain TECHNIQUE: Axial images were obtained from above the diaphragm to the pubic rami in the axial plane a t 5 mm thick sections. Reconstructed images are reviewed on the computer in the coronal plane. CONTRAST: 100ml mL of Isovue 300. Study performed without Oral Contrast DLP: 1533 mGycm, Automated exposure control for dose reduction was used. FINDINGS: Limited CT sections are obtained the lung bases. The lung bases are clear. CT ABDOMEN: Gastric sleeve is present Liver: Normal Spleen: Normal Pancreas: Normal Adrenal glands: The adrenal glands are normal. Gallbladder: Surgically absent Kidneys: No masses are evident. No hydronephrosis is present. No cysts are present. Delayed images were obtained through the kidneys, which remain unremarkable. Aorta: Normal Inferior vena cava: Normal. CT PELVIS: Loops of bowel within the abdomen and pelvis are normal. This study is without oral contrast. [place] el evaluation. Appendix: Normal as visualized. Urinary bladder: Normal. Genitourinary structures: Uterus is normal. Adnexa are unremarkable Osseous structures: No suspicious lytic or sclerotic lesions. IMPRESSION: 1. No suspicious acute abnormality to account for right flank pain [facility], , 04/19/2025 8:14 PM
[2025-04-19] MEDS: MORPHINE SULFATE 4 MG/ML SYRINGE IVP STA (20:58)
[2025-04-19 21:00] VITALS: BP 123/75; PULSE 63
== END 2025-04-19 21:08 | disposition home or self-care (01) ==
LOC: EC 16:05
DX: G40.909 Epilepsy, unspecified, not intractable, without status epilepticus (principal); R10.32 Left lower quadrant pain; R10.31 Right lower quadrant pain; Z86.73 Personal history of transient ischemic attack (TIA), and cerebral infarction without residual deficits; Z88.6 Allergy status to analgesic agent; Z88.1 Allergy status to other antibiotic agents; Z88.2 Allergy status to sulfonamides; Z88.8 Allergy status to other drugs, medicaments and biological substances
CPT/HCPCS: 36415; 80053; 82150; 83605; 83690; 85025; 81001; 74177; 99284; 96374; 96375; 96361; J2060; J2270; J2405; Q9967; J2470

== ENCOUNTER 2025-05-01 10:57 | Emergency (ER) | payer MEDICARE, OTHER ==
--- NOTE | 2025-05-01 12:54 | ED ---
Abdominal Pain HPI - General Chief Complaint: Abdominal Pain Stated Complaint: Abd/back pain Time Seen by Provider: 05/01/25 12:48 Source: patient, RN notes reviewed Mode of arrival: ambulatory - History of Present Illness Initial Comments: 49-year-old female presenting for abdominal pain x 1 year. States over the past year she has had intermittent, sharp, stabbing pains in the epigastric area that radiate to the bilateral flanks. States sometimes she has pain in the lower abdomen as well. Endorses an episode of vomiting yesterday. Reports pain is worse with food. Also reports intermittent diarrhea. Denies urinary symptoms, vaginal discharge, fevers, chest pain, shortness of breath. States she was seen in the ER 11 days ago for same symptoms where CT abdomen pelvis was performed which was negative and she was discharged. Abdominal surgical history does include bariatric surgery, cholecystectomy, and bowel resection. - Related Data Home Medications Medication Instructions Recorded Confirmed DULoxetine HCL [Cymbalta] 30 mg PO DAILY 09/10/19 12/07/24 Sucralfate [Carafate] 1 gm PO Q12HR PRN 09/10/19 12/07/24 Atorvastatin [Lipitor] 40 mg PO HS 10/09/21 12/07/24 busPIRone HCl [Buspar] 10 mg PO DAILY 10/09/21 12/07/24 hydrOXYzine HCL [Atarax] 25 mg PO HS 10/09/21 12/07/24 traZODone HCL 150 mg PO HS 10/09/21 12/07/24 Metoprolol Tartrate [Lopressor] 25 mg PO DAILY 06/21/22 12/07/24 Omeprazole 20 mg PO DAILY PRN 06/21/22 12/07/24 Valsartan 40 mg PO DAILY 06/21/22 12/07/24 Acetaminophen Tab [Tylenol] 1,000 mg PO Q12H PRN 09/17/22 12/07/24 QUEtiapine [SEROquel] 200 mg PO HS 09/17/22 12/07/24 Ferrous Gluconate 324 mg PO Q48H 12/01/24 12/07/24 Lacosamide 100 mg PO BID 12/01/24 12/07/24 Lacosamide [Vimpat] 50 mg PO DAILY 12/01/24 12/07/24 Lactobacillus Acidophilus 2 dose PO QAM 12/01/24 12/07/24 [Acidophilus] Loperamide [Imodium] 1 dose PO DAILY PRN 12/01/24 12/07/24 Multivit-Min/FA/Lycopen/Lutein 1 each PO DAILY 12/01/24 12/07/24 [Centrum Silver Tablet] Nemolizumab-Ilto [Nemluvio] 30 mg SQ QMONTHLY 12/01/24 12/07/24 OXcarbazepine 300 mg PO BID 12/01/24 12/07/24 Estro Support 1 dose PO DAILY 12/02/24 12/07/24 Previous Rx's Medication Instructions Recorded Aspirin 81 mg PO DAILY #30 tab 09/19/22 Cyanocobalamin [Vitamin B-12] 1,000 mcg PO DAILY #30 tab 09/19/22 Allergies Allergy/AdvReac Type Severity Reaction Status Date / Time Sulfa (Sulfonamide Allergy Severe Rash/Hives Verified 05/01/25 11:09 Antibiotics) sulfamethoxazole Allergy Severe Rash/Hives Verified 05/01/25 11:09 [From Bactrim] trimethoprim [From Bactrim] Allergy Severe Rash/Hives Verified 05/01/25 11:09 gabapentin Allergy Intermediate Swelling Verified 05/01/25 11:09 ticagrelor [From Brilinta] AdvReac Intermediate Flu-like Verified 05/01/25 11:09 symptoms NSAIDS (Non-Steroidal AdvReac Mild upset Verified 05/01/25 11:09 Anti-Inflamma stomach Review of Systems ROS Statement: Those systems with pertinent positive or pertinent negative responses have been documented in the HPI. ROS Other: All systems not noted in ROS Statement are negative. 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 Difficulty walking at times-uses a wheelchair prn, speech and memory issues. Hx DVT right leg X3, hx DVT right upper arm X4, iron deficiency anemia. Hx Covid 09/30 and 10/02, Blood disorder-undiagnosed awaiting hematology consult. 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 Patient reports difficulty waking up after anesthesia one time. Type of Cardiac Device: Loop Device Placement Date:: Unknown, loop recorder not working-casework specialist aware. Past Psychological History: Anxiety, Bipolar, Depression Smoking Status: Never smoker Past Alcohol Use History: Rare Past Drug Use History: Marijuana - Past Family History Mother Family Medical History: Cancer, Deep Vein Thrombosis (DVT), Pulmonary Embolus Additional Family Medical History / Comment(s): Uterine cancer- hysterectomy Father Family Medical History: Cancer, CVA/TIA, Diabetes Mellitus Additional Family Medical History / Comment(s): Father had skin cancer, TIA X4 CVA x1. Paternal grandmother had brain aneurysm. Father's sister had leukemia. General Exam General appearance: alert, in no apparent distress Head exam: Present: atraumatic, normocephalic, normal inspection Eye exam: Present: normal appearance, PERRL, EOMI. Absent: scleral icterus, conjunctival injection, periorbital swelling Respiratory exam: Present: normal lung sounds bilaterally. Absent: respiratory distress, wheezes, rales, rhonchi, stridor Cardiovascular Exam: Present: regular rate, normal rhythm, normal heart sounds. Absent: systolic murmur, diastolic murmur, rubs, gallop, clicks GI/Abdominal exam: Present: soft, normal bowel sounds. Absent: distended, tenderness, guarding, rebound, rigid Back exam: Absent: CVA tenderness (R), CVA tenderness (L) Neurological exam: Present: alert, oriented X3 Psychiatric exam: Present: normal affect, normal mood Skin exam: Present: warm, dry, intact, normal color. Absent: rash Course Vital Signs 05/01/25 11:05 Temperature 98.5 F Pulse Rate 67 Respiratory 20 Rate Blood Pressure 138/75 O2 Sat by Pulse 92 L Oximetry Medical Decision Making - Medical Decision Making Was pt. sent in by a medical professional or institution (MIHAI Duncan, PROJECT EXECUTIVE, urgent care, hospital, or fpc...) When possible be specific @ -No Did you speak to anyone other than the patient for history (EMS, parent, family, police, friend...)? What history was obtained from this source @ -No Did you review nursing and triage notes (agree or disagree)? Why? @ -I reviewed and agree with nursing and triage notes Were old charts reviewed (outside hosp., previous admission, EMS record, old EKG, old radiological studies, urgent care reports/EKG's, fpc records)? Report findings @ -Reviewed ER chart from 04/19/[address] abdomen pelvis showing no acute process Differential Diagnosis (chest pain, altered mental status, abdominal pain women, abdominal pain men, vaginal bleeding, weakness, fever, dyspnea, syncope, headache, dizziness, GI bleed, back pain, seizure, CVA, palpatations, mental hea lth, musculoskeletal)? @ -Differential Abdominal Pain Women: Appendicitis, Cholecystitis, diverticulosis, ischemic bowel, pancreatitis, hepatitis, UTI, gastroenteritis, AAA, incarcerated hernia, bowel obstruction, constipation, inflammatory bowel, hepatitis, peptic ulcer disease, splenic infarction, perforated viscus, vulvitis, ovarian torsion, PID, kidney stone, placenta abruption, this is not meant to be an all-inclusive list EKG interpreted by me (3pts min.). @ -None X-rays interpreted by me (1pt min.). @ -None done CT interpreted by me (1pt min.). @ -None done U/S interpreted by me (1pt. min.). @ -None done What testing was considered but not performed or refused? (CT, X-rays, U/S, lab s)? Why? @ -None What meds were considered but not given or refused? Why? @ -None Did you discuss the management of the patient with other professionals (professionals i.e. MIHAI Duncan, PROJECT EXECUTIVE, lab, RT, psych nurse, social media senior associate, brick chimney builder, teacher, district resource officer, casey saw operator)? Give summary @ -No Was smoking cessation discussed for >3mins.? @ -No Was critical care preformed (if so, how long)? @ -No Were there social determinants of health that impacted care today? How? (Homelessness, low income, unemployed, alcoholism, drug addiction, transportation, low edu. Level, literacy, decrease access to med. care, fdc, rehab)? @ -No Was there de-escalation of care discussed even if they declined (Discuss DNR or withdrawal of care, Hospice)? DNR status @ -No What co-morbidities impacted this encounter? (DM, HTN, Smoking, COPD, CAD, Cancer, CVA, ARF, Chemo, Hep., AIDS, mental health diagnosis, sleep apnea, morbid obesity)? @ -None Was patient admitted / discharged? Hospital course, mention meds given and route, prescriptions, significant lab abnormalities, going to OR and other pertinent info. @ -Discharge. 49-year-old female with history of cholecystectomy and Ivana-en-Y presenting for epigastric abdominal pain x 1 year. Vital signs within acceptable limits. Abdomen soft and nonsurgical. Provided with IV fluids and appropriate analgesics and antiemetics. Lab work largely unremarkable, LFTs trending down from 04/19. Urinalysis unremarkable. I do not identify emergent etiology causing abdominal pain. Advised that patient must follow-up with her PCP for further evaluation. Case was discussed with my ED attending Dr. Bright. Undiagnosed new problem with uncertain prognosis? @ -No Drug Therapy requiring intensive monitoring for toxicity (Heparin, Nitro, Insulin, Cardizem)? @ -No Were any procedures done? @ -No Diagnosis/symptom? @ -Abdominal pain Acute, or Chronic, or Acute on Chronic? @ -Acute Uncomplicated (without systemic symptoms) or Complicated (systemic symptoms)? @ -Uncomplicated Side effects of treatment? @ -No Exacerbation, Progression, or Severe Exacerbation? @ -No Poses a threat to life or bodily function? How? (Chest pain, [place], [place], pneumonia, PE, COPD, DKA, ARF, appy, cholecystitis, CVA, Diverticulitis, Homicidal, Suicidal, threat to staff... and all critical care pts) @ -No - Lab Data Result diagrams: 05/01/25 12:49 05/01/25 12:49 Lab Results 05/01/25 05/01/25 05/01/25 Range/Units 12:49 12:49 12:49 WBC 9.23 (4.50-10.00) 10*3/uL RBC 4.36 (4.10-5.20) 10*6/uL Hgb 14.3 (12.0-15.0) g/dL Hct 40.7 (37.2-46.3) % MCV 93.3 (80.0-97.0) fL MCH 32.8 H (27.0-32.0) pg MCHC 35.1 (32.0-37.0) g/dL Plt Count 253 (140-440) 10*3/uL MPV 8.7 L (9.5-12.2) fL Immature Gran % (Auto) 0.2 % Neutrophils % 62.9 % Lymphocytes % 25.2 % Monocytes % 7.6 % Eosinophils % 3.6 % Basophils % 0.5 % Immature Gran # 0.02 (0.00-0.04) 10*3/uL Neutrophils # 5.80 (1.80-7.70) 10*3/uL Lymphocytes # 2.33 (0.90-5.00) 10*3/uL Monocytes # 0.70 (0.20-1.00) 10*3/uL Eosinophils # 0.33 (0.04-0.35) 10*3/uL Basophils # 0.05 (0.00-0.10) 10*3/uL Sodium (137-145) mmol/L Potassium (3.5-5.1) mmol/L Chloride (98-107) mmol/L Carbon Dioxide (22-30) mmol/L Anion Gap mmol/L BUN (7-17) mg/dL Creatinine (0.52-1.04) mg/dL Est GFR (CKD-EPI)AfAm (>60 ml/min/1.73 sqM) Est GFR (CKD-EPI)NonAf (>60 ml/min/1.73 sqM) Glucose (74-99) mg/dL Plasma Lactic Acid Jae (0.7-2.0) mmol/L Calcium (8.4-10.2) mg/dL Total Bilirubin (0.2-1.3) mg/dL AST (14-36) U/L ALT (4-34) U/L Alkaline Phosphatase (38-126) U/L Total Protein (6.3-8.2) g/dL Albumin (3.5-5.0) g/dL Amylase (30-110) U/L Lipase (23-300) U/L Urine Color Light Yellow Urine Appearance Cloudy H (Clear) Urine pH 7.5 (5.0-8.0) Ur Specific Rison 1.014 (1.001-1.035) Urine Protein Negative (Negative) Urine Glucose (UA) Negative (Negative) Urine Ketones Negative (Negative) Urine Blood Negative (Negative) Urine Nitrite Negative (Negative) Urine Bilirubin Negative (Negative) Urine Urobilinogen <2.0 (<2.0) mg/dL Ur Leukocyte Esterase Negative (Negative) Urine RBC 1 (0-5) /hpf Urine WBC 1 (0-5) /hpf Ur Squamous Epith Cells 1 (0-4) /hpf Amorphous Sediment Rare H (None) /hpf Urine HCG, Qual Not Detected (Not Detectd) 05/01/25 05/01/25 Range/Units 12:49 12:49 WBC (4.50-10.00) 10*3/uL RBC (4.10-5.20) 10*6/uL Hgb (12.0-15.0) g/dL Hct (37.2-46.3) % MCV (80.0-97.0) fL MCH (27.0-32.0) pg MCHC (32.0-37.0) g/dL Plt Count (140-440) 10*3/uL MPV (9.5-12.2) fL Immature Gran % (Auto) % Neutrophils % % Lymphocytes % % Monocytes % % Eosinophils % % Basophils % % Immature Gran # (0.00-0.04) 10*3/uL Neutrophils # (1.80-7.70) 10*3/uL Lymphocytes # (0.90-5.00) 10*3/uL Monocytes # (0.20-1.00) 10*3/uL Eosinophils # (0.04-0.35) 10*3/uL Basophils # (0.00-0.10) 10*3/uL Sodium 136 L (137-145) mmol/L Potassium 4.6 (3.5-5.1) mmol/L Chloride 101 (98-107) mmol/L Carbon Dioxide 28 (22-30) mmol/L Anion Gap 7 mmol/L BUN 13 (7-17) mg/dL Creatinine 0.93 (0.52-1.04) mg/dL Est GFR (CKD-EPI)AfAm 84 (>60 ml/min/1.73 sqM) Est GFR (CKD-EPI)NonAf 73 (>60 ml/min/1.73 sqM) Glucose 92 (74-99) mg/dL Plasma Lactic Acid Jae 1.0 (0.7-2.0) mmol/L Calcium 9.5 (8.4-10.2) mg/dL Total Bilirubin 0.5 (0.2-1.3) mg/dL AST 43 H (14-36) U/L ALT 47 H (4-34) U/L Alkaline Phosphatase 116 (38-126) U/L Total Protein 6.5 (6.3-8.2) g/dL Albumin 4.2 (3.5-5.0) g/dL Amylase 63 (30-110) U/L Lipase 101 (23-300) U/L Urine Color Urine Appearance (Clear) Urine pH (5.0-8.0) Ur Specific Rison (1.001-1.035) Urine Protein (Negative) Urine Glucose (UA) (Negative) Urine Ketones (Negative) Urine Blood (Negative) Urine Nitrite (Negative) Urine Bilirubin (Negative) Urine Urobilinogen (<2.0) mg/dL Ur Leukocyte Esterase (Negative) Urine RBC (0-5) /hpf Urine WBC (0-5) /hpf Ur Squamous Epith Cells (0-4) /hpf Amorphous Sediment (None) /hpf Urine HCG, Qual (Not Detectd) Disposition Clinical Impression: Abdominal pain Disposition: HOME SELF-CARE Condition: Stable Instructions (If sedation given, give patient instructions): Abdominal Pain (ED) Additional Instructions: Please return to the Emergency Department if symptoms worsen or any other concerns. Is patient prescribed a controlled substance at d/c from ED?: No Referrals: Zachary Catalan MD [Primary Care Provider] - 1-2 days Time of Disposition: 14:44
[2025-05-01] MEDS: SODIUM CHLORIDE 0.9% 1,000 ML IV STA (12:57)
[2025-05-01 13:01] LABS: Basophils # (A) 0.05 10*3/uL (0.00-0.10); Basophils % (A) 0.5 %; Eosinophils # (A) 0.33 10*3/uL (0.04-0.35); Eosinophils % (A) 3.6 %; HCT 40.7 % (37.2-46.3); HGB 14.3 g/dL (12.0-15.0); Lymphocytes # (A) 2.33 10*3/uL (0.90-5.00); Lymphocytes % (A) 25.2 %; MCH 32.8 pg (27.0-32.0); MCHC 35.1 g/dL (32.0-37.0); MCV 93.3 fL (80.0-97.0); Mean Platelet Volume 8.7 fL (9.5-12.2); Monocytes % (A) 7.6 %; Neutrophils % (A) 62.9 %; Platelet Count 253 10*3/uL (140-440); RBC 4.36 10*6/uL (4.10-5.20); RDW 11.9 % (11.5-14.5); WBC 9.23 10*3/uL (4.50-10.00)
[2025-05-01 13:06] LABS: Amorphous Sediment,Urine Rare /hpf; Appearance,Urine Cloudy (Clear); Bilirubin,Urine Negative (Negative); Blood,Urine Negative (Negative); Color,Urine Light Yellow; Glucose,Urine (UA) Negative (Negative); Ketones,Urine Negative (Negative); Leukocyte Esterase,Urine Negative (Negative); Nitrite,Urine Negative (Negative); PH, Urine 7.5 (5.0-8.0); Protein,Urine Negative (Negative); RBC,Urine 1 /hpf (0-5); Specific Gravity,Urine 1.014 (1.001-1.035); Squamous Epithelial Cell,Urine 1 /hpf (0-4); Urobilinogen,Urine <2.0 mg/dL (<2.0); WBC,Urine 1 /hpf (0-5)
[2025-05-01] MEDS: ACETAMINOPHEN TAB 500 MG TAB PO STA (13:20)
[2025-05-01 13:31] LABS: ALT 47 U/L (4-34); AST 43 U/L (14-36); African American GFR (CKD) 84 (>60 ml/min/1.73 sqM); Albumin 4.2 g/dL (3.5-5.0); Alkaline Phosphatase 116 U/L (38-126); Amylase 63 U/L (30-110); Anion Gap 7 mmol/L; Blood Urea Nitrogen 13 mg/dL (7-17); Calcium 9.5 mg/dL (8.4-10.2); Carbon Dioxide 28 mmol/L (22-30); Chloride 101 mmol/L (98-107); Glucose 92 mg/dL (74-99); Lipase 101 U/L (23-300); Non-African American GFR(CKD) 73 (>60 ml/min/1.73 sqM); Potassium 4.6 mmol/L (3.5-5.1); Sodium 136 mmol/L (137-145); Total Bilirubin 0.5 mg/dL (0.2-1.3); Total Protein 6.5 g/dL (6.3-8.2)
[2025-05-01] MEDS: ONDANSETRON 4 MG/2 ML VIAL IVP STA (14:11)
[2025-05-01] MEDS: MORPHINE SULFATE 2 MG/ML SYRINGE IVP ONE (14:11)
[2025-05-01] MEDS: PANTOPRAZOLE 40 MG/10 ML VIAL IVP STA (14:12)
[2025-05-01 15:45] VITALS: BP 108/68; PULSE 62; RESP 18; TEMP 98.1
== END 2025-05-01 15:40 | disposition home or self-care (01) ==
LOC: EC 10:57
DX: R10.13 Epigastric pain (principal); Z88.1 Allergy status to other antibiotic agents; Z88.2 Allergy status to sulfonamides; Z88.6 Allergy status to analgesic agent; Z88.8 Allergy status to other drugs, medicaments and biological substances
CPT/HCPCS: 36415; 80053; 82150; 83605; 83690; 85025; 81001; 81025; 99284; 96374; 96375; 96361; J2405; J2270; J2470

== ENCOUNTER → 2025-05-09 | Outpatient (CLI) | payer MEDICARE, OTHER ==
--- NOTE | 2025-05-09 15:29 | FL ---
EXAMINATION TYPE: FL barium swallow w video DATE OF EXAM: 05/09/2025 MODIFIED SWALLOW / DEGLUTITION STUDY CLINICAL HISTORY: 49-year-old female R13.10 DYSPHAGIA Z86.73 HX TIA. Patient with history of previous esophageal dilatation. Trouble swallowing. TECHNIQUE: Deglutition study is performed utilizing thin liquid barium, nectar thick liquid barium, barium thick pudding, and barium coated cracker. Total fluoroscopy time 1 minute 32 seconds . Total images: 1 image saved Real-time fluoroscopy support was provided to speech pathology. Total DAP: 75 mGycm2. COMPARISON: None. FINDINGS: The oral and pharyngeal phases show satisfactory initiation and propagation with all modalities teste d. The patient is edentulous. Otherwise, normal mastication is seen with solid modalities tested. Th ere is no evidence of penetration or aspiration with any modality tested. No significant pharyngeal residue was appreciated. IMPRESSION: No penetration or aspiration. Please refer to speech therapist notes for further details if necessary. [facility], , 05/09/2025 3:27 PM
== END | disposition home or self-care (01) ==
LOC: RADFLMAIN 12:39
PROVIDERS: ATTEND Surgery
DX: R13.10 Dysphagia, unspecified (principal); K22.89 Other specified disease of esophagus; Z86.73 Personal history of transient ischemic attack (TIA), and cerebral infarction without residual deficits
CPT/HCPCS: 74230